=== PATIENT | male | born 1955 | race Caucasian/White ===

== ENCOUNTER 2019-08-02 23:05 | Inpatient (IN) | payer MEDICAID ==
[~2019-08-02] VITALS: Ht 180.3 cm; Wt 103.7 kg
[2019-08-02] MEDS ORDERED: ABILIFY10 MG PO (23:11)
[2019-08-02] MEDS ORDERED: ALDACTONE25 MG PO (23:12)
[2019-08-02] MEDS ORDERED: COREG6.25 MG (23:12)
[2019-08-02] MEDS ORDERED: PRECOSE25 MG PO (23:12)
[2019-08-02] MEDS ORDERED: BAYER CHEWABLE81 MG PO (23:12)
[2019-08-02] MEDS ORDERED: NEURONTIN 300300 MG PO (23:12)
[2019-08-02] MEDS ORDERED: BUMETANIDE0.5 MG PO (23:12)
[2019-08-02] MEDS ORDERED: PAXIL30 MG PO (23:13)
[2019-08-02] MEDS ORDERED: K-TAB10 MEQ PO (23:13)
--- NOTE | 2019-08-02 23:33 | NUR ---
PT PLACED WITHIN EYESITE OF NURSES STATION.
[2019-08-03] VITALS (25 sets, daily range): BP systolic 87–133; BP diastolic 63–105; Ht 180.3 cm; Wt 103.7 kg
--- NOTE | 2019-08-03 01:00 | NUR ---
SHIFT ASSESSMENT COMPLETE. VSS STABLE NO VISUAL CUES OF DISTRESS NOTED. WILL CONTINUE TO MONITOR.
--- NOTE | 2019-08-03 01:00 | NUR ---
VS STABLE. WILL CONTINUE TO MONITOR.
--- NOTE | 2019-08-03 03:00 | NUR ---
VS STABLE. WILL CONTINUE TO MONITOR.
[2019-08-03 04:23] LABS: BASOPHILS 0.1 % (0-2); EOSINOPHILS 0.1 % (0-7); HEMATOCRIT 38.7 % (42.0-54.0); HEMOGLOBIN 12.4 g/dL (13.5-17.5); IMMATURE GRANULOCYTES 0.3 % (0-5); LYMPHOCYTES 7.3 % (15-50); MCH 29.2 pg (26.0-34.0); MCV 91.3 fL (80.0-100.0); MEAN PLATELET VOLUME 9.6 fL (7.4-10.4); NEUTROPHILS 84.2 % (40-80); PLATELET COUNT 150 10x3/uL (130-400); RBC 4.24 10x6/uL (4.20-6.10); RDW 13.8 % (11.5-14.5); WBC 7.7 10x3/uL (4.8-10.8)
[2019-08-03 04:49] LABS: ANION GAP 10.6 mmol/L (8-16); CALCIUM 8.1 mg/dL (8.5-10.1); CARBON DIOXIDE 30.3 mmol/L (21.0-32.0); CREATININE - SERUM 1.4 mg/dL (0.6-1.3); MAGNESIUM - SERUM 1.8 mg/dL (1.8-2.4); POTASSIUM - SERUM 3.9 mmol/L (3.5-5.1)
--- NOTE | 2019-08-03 05:00 | NUR ---
VS STABLE. WILL CONTINUE TO MONITOR.
[2019-08-03 06:47] LABS: INR 1.21 (0.85-1.17); PROTIME 14.7 SECONDS (11.6-15.0)
[2019-08-03 07:01] LABS: ALBUMIN 2.5 g/dL (3.4-5.0); BILIRUBIN - TOTAL 0.79 mg/dL (0.2-1.3); PROTEIN - SERUM 6.7 g/dL (6.4-8.2)
--- NOTE | 2019-08-03 07:15 | NUR ---
REPORT RECEIVED. ASSESSMENT COMPLETE PER FLOWSHEET. VSS. VOTANYA AT BEDSIDE NEW ORDERS RECEIVED. WILL CONTIUE TO MONITOR
--- NOTE | 2019-08-03 08:06 | NUR ---
VS STABLE. WILL CONTINUE TO MONITOR.
--- NOTE | 2019-08-03 11:00 | NUR ---
REASSESSMENT COMPLETE PER FLOW SHEET. VSS. NO NEW CHANGES WILL CONTINUE TO MONITOR
--- NOTE | 2019-08-03 18:47 | MORECARE ---
CASE MANAGEMENT DISCHARGE SUMMARY PATIENT: BROOKE DAVALOS UNIT: [id number] ADM DATE: 08/02/19 AGE: 64 : 53 SEX: M ROOM/BED: D.2305 AUTHOR: FLORY MARIA PHYSICIAN: REFERRING PHYSICIAN: BRIANNA LAFLEUR MD DATE OF SERVICE: 08/03/19 Discharge Plan Patient Name: BROOKE DAVALOS [facility] [facility] 1955 Planned Disposition: Anticipated Discharge Date: Discharge Date: Expected LOS: Initial Reviewer: [email or web address] Initial Review Date: 08/03/2019 Generated: 08/03/19 7:47 pm Comments DCP- Discharge Planning Updated by [email or web address]: Joanna Del Valle on 08/03/19 5:[address] CM attempted to get discharge planning assessment completed but patient kept falling asleep while CM getting information CM will see patient later for patient initial discharge planning assessment. CM will continue to follow and assist as needed with discharge planning / needs Patient Name: BROOKE DAVALOS Page [phone] at 1847 All edits/amendments must be made on the electronic document DICTATION DATE: 08/03/191846 TILE SORTER: HIEN 08/03/191846 RPT#: [id number] DC DATE: STATUS: ADM IN [facility] [address] [place] [address] END OF REPORT
--- NOTE | 2019-08-03 19:00 | NUR ---
REPORT RECEIVED. PT RESTING IN BED ON RIGHT SIDE, AAOX4. GEORGE IN PLACE, RT FOREARM PIV, LT FOREARM PIV X2, SEE FLOWSHEET. ASSESSMENT COMPLETED, SEE FLOWSHEET. NO ACUTE DISTRESS NOTED AT THIS TIME, WILL CONTINUE TO MONITOR.
--- NOTE | 2019-08-03 21:00 | NUR ---
PT RESTING IN BED, COLOSTOMY FORMING SEMI-SOLID STOOL.
--- NOTE | 2019-08-03 23:00 | NUR ---
PT RESTING IN BED, NO ACUTE DISTRES NOTED. WILL CONTINUE TO MONITOR.
[2019-08-04] VITALS (24 sets, daily range): BP systolic 92–135; BP diastolic 57–103
--- NOTE | 2019-08-04 01:00 | NUR ---
PT LAYING ON RIGHT SIDE, CONFUSED AND DISORIENTED TO PLACE AND SITUATION. REORIENTED NEEDED.
--- NOTE | 2019-08-04 03:00 | NUR ---
EMPTIED PT'S COLOSTOMY BAG. NO ACUTE DISTRESS NOTED.
[2019-08-04 04:25] LABS: BASOPHILS 0.2 % (0-2); EOSINOPHILS 1.9 % (0-7); HEMATOCRIT 38.3 % (42.0-54.0); HEMOGLOBIN 11.9 g/dL (13.5-17.5); IMMATURE GRANULOCYTES 0.2 % (0-5); LYMPHOCYTES 13.7 % (15-50); MCH 28.7 pg (26.0-34.0); MCHC 31.1 g/dL (31.0-37.0); MCV 92.5 fL (80.0-100.0); MEAN PLATELET VOLUME 9.1 fL (7.4-10.4); MONOCYTES 8.7 % (2-11); NEUTROPHILS 75.3 % (40-80); PLATELET COUNT 131 10x3/uL (130-400); RBC 4.14 10x6/uL (4.20-6.10)
[2019-08-04 04:32] LABS: WBC 5.3 10x3/uL (4.8-10.8)
[2019-08-04 04:55] LABS: ALBUMIN 2.3 g/dL (3.4-5.0); ANION GAP 10.1 mmol/L (8-16); BILIRUBIN - TOTAL 0.56 mg/dL (0.2-1.3); CALCIUM 8.4 mg/dL (8.5-10.1); CREATININE - SERUM 1.2 mg/dL (0.6-1.3); MAGNESIUM - SERUM 1.8 mg/dL (1.8-2.4); PHOSPHOROUS 3.2 mg/dL (2.5-4.9); POTASSIUM - SERUM 4.1 mmol/L (3.5-5.1); PROTEIN - SERUM 6.4 g/dL (6.4-8.2); THYROID STIMULATING HORMONE 1.47 uIU/mL (0.36-3.74)
--- NOTE | 2019-08-04 05:00 | NUR ---
PT RESTING ON RIGHT SIDE, NO ACUTE DISTRESS NOTED. PT STILL DISORIENTED TO TIME AND SITUATION, SPEECH SLOW TO RESPOND AND QUIET.
--- NOTE | 2019-08-04 07:00 | NUR ---
REPORT RECEVIED FROM THE OFF GOING RN. SEE ASSESSMENT IN THE PTS FLOW SHEET. VSS AT THIS TIME. CALL LIGHT IN REACH. WILL CONT POC.
--- NOTE | 2019-08-04 08:00 | NUR ---
PT LEFT FOR CT.
--- NOTE | 2019-08-04 10:07 | NUR ---
HEART RATE BOUNCING FROM NRS TO A RATE OF 130'S. EKG OBTAINED. PT IN NSR THEN AFIB AND THEN JUNCTIONAL RYTYHM. BP STABLE. DR JACOBY DUNCAN.
--- NOTE | 2019-08-04 10:11 | NUR ---
DR DOZIER PAGED BACK. CONSULT CARDIO.
--- NOTE | 2019-08-04 10:46 | NUR ---
GUSTAVO RAMIREZ ASSISTED THE PT OOB AND INTO HIS BEDSIDE CHAIR.
--- NOTE | 2019-08-04 10:57 | NUR ---
DR ANDERS AT THE PTS BEDSIDE. OK FOR REGULAR DIET AND LIQUIDS.
--- NOTE | 2019-08-04 11:29 | NUR ---
REASSESSMENT COMPLETED. VSS. WILL CONT POC.
[2019-08-04 11:59] LABS: AMORPHOUS SEDIMENT <1+ /lpf (NONE SEEN); APPEARANCE CLOUDY (CLEAR); BACTERIA MODERATE /hpf (NEGATIVE); BILIRUBIN NEGATIVE (NEGATIVE); COLOR YELLOW (YELLOW); EPITHELIAL CELLS 0-5 /hpf (0-5); GLUCOSE 500 mg/dL (NEGATIVE); GRANULAR CAST OCC /lpf (NONE SEEN); KETONE MODERATE mg/dL (NEGATIVE); NITRITE NEGATIVE (NEGATIVE); PROTEIN 1+ mg/dL (NEGATIVE); RED CELLS - URINE 0-5 /hpf (0-5); UROBILINOGEN NORMAL (NORMAL); WHITE CELLS - URINE 25-50 /hpf (NEGATIVE)
[2019-08-04 12:00] LABS: MUCUS <1+ /lpf (NONE SEEN)
--- NOTE | 2019-08-04 12:36 | NUR ---
DR SANTOYO AT THE PTS BEDSIDE. SEE ORDERS.
--- NOTE | 2019-08-04 15:00 | NUR ---
REASSESSMENT COMPLETED. VSS. CALL LIGHT IN REACH. WILL CONT POC.
--- NOTE | 2019-08-04 19:00 | NUR ---
SHIFT ASSESSMENT COMPLETE. PT IS A&O X3, CONFUSED TO PLACE, REORIENTED. SPEECH IS CLEAR, STRONG AND EQUAL HAND SURVEILLANCE SYSTEM MONITOR AND FOOT PUMPS. RR EVEN AND UNLABORED, NC ON @ 2 L/MIN, CLEAR BREATH SOUNDS HEARD BILAT THROUGHOUT ALL LOBES. S1S2 AUDIBLE, HR 66 NSR. PT WILL BE IN NSR, THEN UNCONTROLLED A-FIB, BACK DOWN TO SINUS ALFONSO AND THEN BACK TO NSR. CARDIOLOGY IS AWARE. ABD DISTENDED AND SOFT, LLQ COLOSTOMY, STOMA IS PINK AND MOIST, COLOSTOMY BAG CDI. BS ACTIVE X4. L WRIST AND L FA PIV S/L. R FA PIV INFUSING LR @ 125 ML/HR. GEORGE CATH INTACT DRAINING CONCENTRATED URINE THAT HAS SEDIMENT IN IT. RADIAL AND PEDAL PULSES PALP. CALL LIGHT IN REACH, PT DENIES ANY NEEDS. WILL CONT TO MONITOR. SEE FLOWSHEET FOR FURTHER DETAILS.
--- NOTE | 2019-08-04 20:00 | NUR ---
CHG BATH AND COMPLETE LINEN CHANGE PROVIDED. PT TOLERATED WELL AND WAS ABLE TO TURN INDEPENDENTLY. UNDER ARMS, SCROTUM, AND UPPER THIGHS HAVE RED SKIN THAT IS MOIST. POWDER APPLIED TO AFFECTED AREAS. LOTION APPLIED TO BACK AND FEET, DRY FLAKY SKIN, NOTED. DENTURE CARE PROVIDED, TOP DENTURES ONLY, HE STATED THAT HE WOULD LIKE TO WEAR THEM. GEORGE CARE PROVIDED. NO FURTHER NEEDS AT THIS TIME. WILL CONT WITH POC.
--- NOTE | 2019-08-04 20:01 | MORECARE ---
CASE MANAGEMENT DISCHARGE SUMMARY PATIENT: BROOKE DAVALOS UNIT: [id number] ADM DATE: 08/02/19 AGE: 64 : 53 SEX: M ROOM/BED: D.2305 AUTHOR: FLORY MARIA PHYSICIAN: REFERRING PHYSICIAN: BRIANNA LAFLEUR MD DATE OF SERVICE: 08/04/19 Discharge Plan Patient Name: BROOKE DAVALOS [facility] [facility] 1955 Planned Disposition: Anticipated Discharge Date: Discharge Date: Expected LOS: Initial Reviewer: [email or web address] Initial Review Date: 08/03/2019 Generated: 08/04/19 9:01 pm Comments DCP- Discharge Planning Updated by SIMON: Joanna Del Valle on 08/04/19 6:[address] Patient having procedure / testing at bedside. CM will evaluate later.CM will continue to follow and assist as needed with discharge planning / needs DCP- Discharge Planning Updated by [id number]: Joanna Del Valle on 08/03/19 5:[address] CM attempted to get discharge planning assessment completed but patient kept falling asleep while CM getting information CM will see patient later for patient initial discharge planning assessment. CM will continue to follow and assist as needed with discharge planning / needs Last DP export: 08/03/19 5:47 Patient Name: BROOKE DAVALOS Page [phone] at 2000 All edits/amendments must be made on the electronic document DICTATION DATE: 08/04/192000 CAFETERIA SERVER: HIEN 08/04/192000 RPT#: [id number] DC DATE: STATUS: ADM IN [facility] [address] [place] [address] END OF REPORT
--- NOTE | 2019-08-04 21:00 | NUR ---
FSBS 166, 2 UN INSULIN ADMIN PER SLIDING SCALE. REFRESHMENTS BROUGHT TO BEDSIDE. HE DENIES ANY NEEDS AT THIS TIME. REPOSITIONED FOR COMFORT. CALL LIGHT IN REACH, BED IN LOWEST POSITION. WILL CONT WITH POC.
--- NOTE | 2019-08-04 22:00 | NUR ---
D/C L WRIST PIV AND L FA PIV, CATH TIPS INTACT, PRESSURE APPLIED TO INSERTION SITE. PT TOLERATED WELL.
--- NOTE | 2019-08-04 23:00 | NUR ---
REASSESSMENT COMPLETE. PT IS A&O X4 WITH NO COMPLAINTS OF PAIN OR DISCOMFORT. REPOSITIONED FOR COMFORT. RR EVEN AND UNLABORED, NC ON @ 2 L/MIN. LLQ STOMA PINK, COLOSTOMY BAG CDI. NO FURTHER FINDINGS AT THIS TIME. SEE FLOWSHEET FOR FURTHER DEATILS. WILL CONT TO MONITOR CLOSELY.
[2019-08-05] VITALS (24 sets, daily range): BP systolic 92–142; BP diastolic 8–98
--- NOTE | 2019-08-05 01:00 | NUR ---
PT RESTING WITH NO SIGNS OF ACUTE DISTRESS NOTED. VSS. REPOSITIONED FOR COMFORT. CALL LIGHT IN REACH, BED IN LOWEST POSITION. WILL CONT TO MONITOR.
--- NOTE | 2019-08-05 03:00 | NUR ---
REASSESSMENT COMPLETE. NO CHANGES IN PT CONDITION. VSS. SEE FLOWSHEET FOR FURTHER DETAILS. CALL LIGHT IN REACH, BED IN LOWEST POSITION. WILL CONT WITH POC.
[2019-08-05 04:16] LABS: BASOPHILS 0 % (0-2); EOSINOPHILS 4.4 % (0-7); HEMATOCRIT 34.6 % (42.0-54.0); HEMOGLOBIN 10.9 g/dL (13.5-17.5); IMMATURE GRANULOCYTES 0.2 % (0-5); LYMPHOCYTES 18.2 % (15-50); MCH 28.8 pg (26.0-34.0); MCHC 31.5 g/dL (31.0-37.0); MCV 91.5 fL (80.0-100.0); MEAN PLATELET VOLUME 9.2 fL (7.4-10.4); MONOCYTES 7.4 % (2-11); NEUTROPHILS 69.8 % (40-80); PLATELET COUNT 128 10x3/uL (130-400); RBC 3.78 10x6/uL (4.20-6.10); RDW 13.9 % (11.5-14.5); WBC 4.1 10x3/uL (4.8-10.8)
[2019-08-05 04:44] LABS: ALBUMIN 2.1 g/dL (3.4-5.0); ALKALINE PHOSPHATASE 50 U/L (46-116); ALT (SGPT) 17 U/L (10-68); BILIRUBIN - TOTAL 0.44 mg/dL (0.2-1.3); CALC OSMOLALITY 280 mosm/kg (275-300); CALCIUM 7.9 mg/dL (8.5-10.1); CARBON DIOXIDE 31.2 mmol/L (21.0-32.0); CHLORIDE - SERUM 104 mmol/L (98-107); CREATININE - SERUM 0.9 mg/dL (0.6-1.3); GLUCOSE 160 mg/dL (74-106); MAGNESIUM - SERUM 1.8 mg/dL (1.8-2.4); PHOSPHOROUS 2.7 mg/dL (2.5-4.9); POTASSIUM - SERUM 3.7 mmol/L (3.5-5.1); PROTEIN - SERUM 5.9 g/dL (6.4-8.2); SODIUM 139 mmol/L (136-145); eGFR NON AFRICAN AMERICAN 90 mL/min (90-120)
[2019-08-05 04:49] LABS: UREA NITROGEN 13 mg/dL (7-18)
--- NOTE | 2019-08-05 05:00 | NUR ---
PT RESTING PEACEFULLY WITH NO SIGNS OF ACUTE DISTRESS NOTED. VSS. CALL LIGHT IN REACH, WILL CONT TO MONITOR.
--- NOTE | 2019-08-05 07:20 | NUR ---
REPORT RECEIVED. ASSESSEMENT COMPLETE PER FLOW SHEET. VSS. NO NEW CHANGES PT RESTING COMFORTABLY DENIES NEEDS WILL CONTINUIE TO MONITOR
--- NOTE | 2019-08-05 08:09 | NUR ---
Nutrition follow-up: Diet advanced to consistent CHO 08/04 Pt with poor po intake at this time Wt: 217# Labs reviewed; glucose under fair to good control A1c: 10.1% Will provide food choices with selective menus and honor food preferences within diet restrictions. Will offer nutritional supplements. RDN following.
--- NOTE | 2019-08-05 09:20 | NUR ---
PT ATE 40% BREAKFAST. PT RESTING COMFORTABLY. DENIES NEEDS WILL CONTINUE TO MONITOR
--- NOTE | 2019-08-05 11:15 | NUR ---
DR DOZIER AT BEDSIDE NEW ORDERS RECIEVED TO TRANSFER. ORDERS PLACED. PT GIVEN LUNCH TRAY ATE 50%
--- NOTE | 2019-08-05 13:10 | NUR ---
DR DOZIER AT BEDSIDE GIVEN UPDATE.
--- NOTE | 2019-08-05 15:00 | NUR ---
NO NEW CHANGES PT RESTING COMFORTABLY DENIES NEEDS WILL CONTINUE TO MONITOR
--- NOTE | 2019-08-05 17:20 | NUR ---
PT REFUSED DINNER. STATED NEASEATED
--- NOTE | 2019-08-05 19:00 | NUR ---
SHIFT ASSESSMENT COMPLETE. PT IS A&O X4, PERRLA, 3 MM, BRISK REACTION TO LIGHT. RR EVEN AND UNLABORED, NC ON @ 2L/MIN, O2 SAT 100%, RR 16-18 BPM. TOP DENTURES IN, ORAL MUCOSA MOIST, PINK. S1S2 AUDIBLE, HR 66 NSR SHOWING ON MONITOR. R FA PIV INFUSING LR @ 125 ML/HR. ABD DISTENDED, SOFT, BS ACTIVE X4. LLQ COLOSTOMY NOTED, STOMA PINK AND MOIST. GEORGE CATH INTACT DRAINING CONCENTRATED URINE WITH SEDIMENT. RADIAL AND PEDAL PULSES PALP. VSS. CALL LIGHT IN REACH, BED IN LOWEST POSITION. NO FURTHER NEEDS AT THIS TIME. WILL CONT TO MONITOR CLOSELY.
--- NOTE | 2019-08-05 19:40 | NUR ---
PT STATES THAT HE IS NAUSEATED. PRN ZOFRAN ADMIN.
--- NOTE | 2019-08-05 20:18 | NUR ---
DELILAH CHAWLA APN. PT STATES THAT HE IS IN PAIN AND HE DOES NOT HAVE ANY PAIN MEDICATION ON EMAR.
--- NOTE | 2019-08-05 20:20 | NUR ---
SPOKE WITH ENRIKE CHAWLA APN R/T SIGRID, NEW ORDERS RECIEVED.
--- NOTE | 2019-08-05 20:54 | MORECARE ---
CASE MANAGEMENT DISCHARGE SUMMARY PATIENT: BROOKE DAVALOS UNIT: [id number] ADM DATE: 08/02/19 AGE: 64 : 53 SEX: M ROOM/BED: D.2305 AUTHOR: FLORY MARIA PHYSICIAN: REFERRING PHYSICIAN: BRIANNA LAFLEUR MD DATE OF SERVICE: 08/05/19 Discharge Plan Patient Name: BROOKE DAVALOS [facility] [facility] 1955 Planned Disposition: Anticipated Discharge Date: Discharge Date: Expected LOS: Initial Reviewer: [email or web address] Initial Review Date: 08/03/2019 Generated: 08/05/19 9:53 pm DCP- Discharge Planning Updated by SIMON: Joanna Del Valle on 08/04/19 6:[address] Patient having procedure / testing at bedside. CM will evaluate later.CM will continue to follow and assist as needed with discharge planning / needs DCP- Discharge Planning Updated by SIMON: Joanna Del Valle on 08/03/19 5:[address] CM attempted to get discharge planning assessment completed but patient kept falling asleep while CM getting information CM will see patient later for patient initial discharge planning assessment. CM will continue to follow and assist as needed with discharge planning / needs Last DP export: 08/04/19 7:01 Patient Name: BROOKE DAVALOS Page [phone] at 205 All edits/amendments must be made on the electronic document DICTATION DATE: 08/05/192052 MIND READER: HIEN 08/05/192052 RPT#: [id number] DC DATE: STATUS: ADM IN [facility] [address] [facility] [place] [address] END OF REPORT
--- NOTE | 2019-08-05 21:01 | MORECARE ---
CASE MANAGEMENT DISCHARGE SUMMARY PATIENT: BROOKE DAVALOS UNIT: [id number] ADM DATE: 08/02/19 AGE: 64 : 53 SEX: M ROOM/BED: D.2305 AUTHOR: CROW,DOC PHYSICIAN: REFERRING PHYSICIAN: BRIANNA LAFLEUR MD DATE OF SERVICE: 08/05/19 Discharge Plan Patient Name: BROOKE DAVALOS Facility: [facility]:[place] : 1955 Planned Disposition: Anticipated Discharge Date: Discharge Date: Expected LOS: Initial Reviewer: [email or web address] Initial Review Date: 08/03/2019 Generated: 08/05/19 10:01 pm Comments DCP- Discharge Planning Updated by [email or web address]: Joanna Del Valle on 08/05/19 7:[address] Patient Name: BROOKE DAVALOS Admission Status: ER Accout number: [id number] Admission Date: 08-02-2019 : 1955 Admission Diagnosis:SEPSIS, UNSPECIFIED ORGANISM Attending: BRIANNA LAFLEUR Current LOS: 3 Anticipated DC Date: Planned Disposition: Primary Insurance: MEDICAID [place] Discharge Planning Comments: CM met with patient at bedside after explaining CM role and obtaining verbal consent. Patient lives at home alone where he is independent with his care and plans to return there upon discharge. Patient feels this would be a safe discharge. CM discussed availability / needs of home health and medical equipment. Patient states he has Home 02 / portable 02 / nebulizer with [employer]. Patient denies any discharge needs at this time. Patient states he will have his friend drive him home upon discharge. CM will continue to follow and assist as needed with discharge planning / needs. Outboard Motor Assembler: Joanna Del Valle DCP- Discharge Planning Updated by [email or web address]: Joanna Del Valle on 08/04/19 6:[address] Patient having procedure / testing at bedside. CM will evaluate later.CM will continue to follow and assist as needed with discharge planning / needs DCP- Discharge Planning Updated by [email or web address]: Joanna Del Valle on 08/03/19 5:[address] CM attempted to get discharge planning assessment completed but patient kept falling asleep while CM getting information CM will see patient later for patient initial discharge planning assessment. CM will continue to follow and assist as needed with discharge planning / needs DCPIA - Discharge Planning Initial Assessment Updated by [email or web address]: Joanna Del Valle on 08/05/19 8:56 pm * Is the patient Alert and Oriented? Yes * How many steps to enter\exit or inside your home? * PCP [facility] * Pharmacy [facility] * Preadmission Environment Home Alone * ADLs Independent * Other Equipment HOME / PORTABLE 02, POWERCHAIR, LIFT CHAIR, HOSP BED, NEBULIZER * List name and contact numbers for known caregivers / representatives who currently or will assist patient after discharge: SHIRAZ DAVALOS [facility]- [phone] * Verbal permission to speak to the caregivers and representatives has been obtained from the patient. Yes * Community resources currently utilized Home Health * Please name any agencies selected above. [facility] * Additional services required to return to the preadmission environment? No * Can the patient safely return to the preadmission environment? Yes * Has this patient been hospitalized within the prior 30 days at any hospital? No Last DP export: 08/05/19 7:54 Patient Name: BROOKE DAVALOS Page [phone] at 2101 All edits/amendments must be made on the electronic document DICTATION DATE: 08/05/192100 COUNSELING CASE MANAGER: HIEN 08/05/192100 RPT#: [id number] DC DATE: STATUS: ADM IN [facility] [address] [place] [address] END OF REPORT
--- NOTE | 2019-08-05 22:30 | NUR ---
PT STATES THAT HE IS IN IMMENSE PAIN. SPOKE WITH ENRIKE CHAWLA APN, ADMIN REMAINING 2 MG MORPHINE FOR A TOTAL OF 4 MG FROM INITIAL MORPHINE ADMINISTRATION. ASSISTED PT TO CHAIR, PARTIAL ASSIST, GAIT STEADY. COMPLETE LINEN CHANGE PROVIDED. PT STATES THAT HE IS FEELING BETTER NOW THAT HE IS SITTING UP. WILL CONT TO MONITOR CLOSELY. CALL LIGHT IN REACH, PT IS IN VIEW OF NURSE'S STATION.
--- NOTE | 2019-08-05 23:00 | NUR ---
DELILAH CHAWLA D/T INCREASED RUQ PAIN.
--- NOTE | 2019-08-05 23:15 | NUR ---
NEW ORDERS RECIEVED. CALLING HOUSE SUPPERVISOR FOR MEDS. WILL CONT WITH POC.
[2019-08-06] VITALS (9 sets, daily range): BP systolic 100–143; BP diastolic 47–91
--- NOTE | 2019-08-06 03:00 | NUR ---
LAB AT BEDSIDE. PT IN AND OUT OF AFIB ON HEART MONITOR, SHOWS NO SIGNS OF DISTRESS. OTHER VSS. CALL LIGHT IN REACH, PT INSTRUCTED TO STAY IN BED AND CALL FOR HELP BEFORE GETTING UP. BED IN LOW POSITION, WILL MONITOR.
[2019-08-06 04:12] LABS: BASOPHILS 0 % (0-2); EOSINOPHILS 0.2 % (0-7); HEMATOCRIT 38.3 % (42.0-54.0); HEMOGLOBIN 12.3 g/dL (13.5-17.5); IMMATURE GRANULOCYTES 0.2 % (0-5); LYMPHOCYTES 2.8 % (15-50); MCHC 32.1 g/dL (31.0-37.0); MCV 90.3 fL (80.0-100.0); MEAN PLATELET VOLUME 9.4 fL (7.4-10.4); MONOCYTES 3.7 % (2-11); NEUTROPHILS 93.1 % (40-80); PLATELET COUNT 149 10x3/uL (130-400); RBC 4.24 10x6/uL (4.20-6.10); RDW 13.7 % (11.5-14.5)
[2019-08-06 04:34] LABS: WBC 12.1 10x3/uL (4.8-10.8)
[2019-08-06 04:41] LABS: ALBUMIN 2.4 g/dL (3.4-5.0); ALKALINE PHOSPHATASE 60 U/L (46-116); ALT (SGPT) 20 U/L (10-68); BILIRUBIN - TOTAL 0.64 mg/dL (0.2-1.3); CALC OSMOLALITY 282 mosm/kg (275-300); CALCIUM 8.2 mg/dL (8.5-10.1); CHLORIDE - SERUM 103 mmol/L (98-107); GLUCOSE 186 mg/dL (74-106); PROTEIN - SERUM 6.4 g/dL (6.4-8.2); SODIUM 140 mmol/L (136-145); UREA NITROGEN 11 mg/dL (7-18); eGFR NON AFRICAN AMERICAN 79 mL/min (90-120)
[2019-08-06 04:43] LABS: POTASSIUM - SERUM 3.1 mmol/L (3.5-5.1)
--- NOTE | 2019-08-06 06:00 | NUR ---
PT RESTING QUIETLY. MEDS GIVEN PER MAR AND TOLERATED BY PT.
--- NOTE | 2019-08-06 07:00 | NUR ---
REPORT RECEIVED. ASSESSMENT COMPLETE PER FLOW SHEET. VSS. NO NEW CHANGES PT RSTING COMFORTABLY WILL CONTINUE TO MONITOR
--- NOTE | 2019-08-06 08:38 | NUR ---
PT GIVEN BREAKFAST TRAY ATE 20%
--- NOTE | 2019-08-06 13:20 | NUR ---
REPORT CALLED TO M/S. CANNOT TRANSFER PT R/T PT STILL IN ROOM 7989.
--- NOTE | 2019-08-06 13:36 | NUR ---
REPORT CALLED. VSS. PT TRANSFERED VIA WHEELCHAIR
--- NOTE | 2019-08-06 14:40 | NUR ---
PATIENT ADMITTED TO ROOM 2215.
--- NOTE | 2019-08-06 14:51 | NUR ---
IV TO RFA PULLED BY PATIENT. RESITED TO LEFT WRIST.
--- NOTE | 2019-08-06 16:15 | NUR ---
IV LEAKING TO LEFT WRIST. REMOVED WITH TIP INTACT. ATTEMPTED TO RESITE WITHOUT SUCCESS. YEVGENIY VASCULAR ACCESS CALLED AND STATES WILL COME TO ROOM.
--- NOTE | 2019-08-06 16:49 | NUR ---
OSTOMY BAG LEAKING. BAG CHANGED. PATIENT UP IN CHAIR. CHAIR ALARM IN PLACE.
--- NOTE | 2019-08-06 17:15 | NUR ---
IV SITED TO [facility] BY VASCULAR ACCESS NURSE YEVGENIY.
--- NOTE | 2019-08-06 18:49 | NUR ---
RESTING IN BED. DENIES NEEDS. BED LOW. FALL PRECAUTIONS IN PLACE. CALL HOANG AND PERSONAL ITEMS IN REACH.
--- NOTE | 2019-08-06 19:40 | NUR ---
TRYING TO GET OOB, SITTING ON SIDE OF BED. JAXON ALARM ACTIVATED. PT PULLED IV OUT, BLOOD ALL OVER THE SHEETS AND PTS GOWN. LINENS CHANGED. PT VERY CONFUSED. ORIENTED TO SELF AND TIME ONLY. COLOSTOMY NOTED WITH BROWN LIQ IN BAG. GEORGE CATH PATENT AND DRAINING DARK YELLOW URINE. ABD HERNIA NOTED UNDER COLOSTOMY. DENIES PAIN. O2 @ 2L/NC. SLOW TO RESPOND TO QUESTIONS. SR ELEVATED X3. CL IN REACH.
--- NOTE | 2019-08-06 23:00 | NUR ---
COLOSTOMY LEAKING. NEW BAG APPLIED.
[2019-08-07] VITALS (25 sets, daily range): BP systolic 75–134; BP diastolic 53–90
--- NOTE | 2019-08-07 00:15 | NUR ---
IV FINALLY RESTARTED WITH 22G IN RT FOREARM AFTER MULTIPLE ATTEMPTS. PT KEVIN WELL.
--- NOTE | 2019-08-07 05:01 | NUR ---
HAS BEEN AWAKE ALL NIGHT. CONFUSED. SKIN IS DIAPHORETIC. FSBS CHECKED AND WAS 164.
[2019-08-07 07:09] LABS: HEMATOCRIT 37.2 % (42.0-54.0); HEMOGLOBIN 11.9 g/dL (13.5-17.5); LYMPHOCYTES 2.4 % (15-50); MCH 28.7 pg (26.0-34.0); MCV 89.6 fL (80.0-100.0); MEAN PLATELET VOLUME 9.5 fL (7.4-10.4); NEUTROPHILS 94.3 % (40-80); RBC 4.15 10x6/uL (4.20-6.10); RDW 14.2 % (11.5-14.5)
[2019-08-07 07:13] LABS: PLATELET COUNT 118 10x3/uL (130-400); WBC 17.3 10x3/uL (4.8-10.8)
--- NOTE | 2019-08-07 07:20 | NUR ---
ALERT AND ORIENTED TO SELF AND TIME. LUNGS WITH BILATERAL INSPIRATORY AND EXPIRATORY WHEEZES. WHEEZES AUDIBLE WITHOUT STETHOSCOPE. RECEIVING BREATHING TREATMENT AT THIS TIME. HEART SOUNDS S1 AND S2 HEARD IN ALL ONTIVEROS. BOWEL SOUNDS ACTIVE X 4. OSTOMY PATENT TO LEFT UPPER QUADRANT. 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 IV TO RFA PATENT WITHOUT REDNESS. HERNIA NOTED TO LUQ. SKIN DENIES PAIN. DENIES NEEDS. BED LOW. FALL PRECAUTIONS IN PLACE. CALL HOANG AND PERSONAL ITEMS IN REACH. WILL CONTINUE TO MONITOR.
[2019-08-07 07:41] LABS: ALBUMIN 2.2 g/dL (3.4-5.0); ALKALINE PHOSPHATASE 65 U/L (46-116); ALT (SGPT) 21 U/L (10-68); AMYLASE - SERUM 12 U/L (25-115); BILIRUBIN - TOTAL 0.98 mg/dL (0.2-1.3); CALC OSMOLALITY 280 mosm/kg (275-300); CALCIUM 8.8 mg/dL (8.5-10.1); CARBON DIOXIDE 29.9 mmol/L (21.0-32.0); CHLORIDE - SERUM 101 mmol/L (98-107); GLUCOSE 176 mg/dL (74-106); PROTEIN - SERUM 6.4 g/dL (6.4-8.2); SODIUM 139 mmol/L (136-145); UREA NITROGEN 10 mg/dL (7-18); eGFR NON AFRICAN AMERICAN 79 mL/min (90-120)
[2019-08-07 07:45] LABS: LIPASE 27 U/L (73-393); POTASSIUM - SERUM 3.6 mmol/L (3.5-5.1)
--- NOTE | 2019-08-07 07:51 | NUR ---
CALLED JAS AT [facility] TO GET TELEMETRY FOR PATIENT. STATES NONE AVAILABLE.
--- NOTE | 2019-08-07 09:13 | NUR ---
PATIENT SWEATING SIGNIFICANTLY BUT STATES NOT HOT. TELEMETRY PLACED ON PATIENT. PATIENT ASSISTED TO CHAIR. HR 120 UNCONTROLLED AFIB. BP 164/65 IN CHAIR. BLOOD SUGAR 240. CALLED [facility] WHO STATES WILL ORDER LACTIC ACID. SERVICE DESK DIRECTOR STATES CALL DR SANTOYO FOR UNCONTROLLED AFIB. DR SANTOYO PAGEChintan.
--- NOTE | 2019-08-07 09:30 | NUR ---
SPOKE WITH NURSE AT [facility] WHO STATES DR SANTOYO ON VACATION. STATES DR BEE SENIOR CARE PROVIDER. DR BEE IN WITH PATIENT. STATES BRIAN AT [facility] NOW SEEING HIS PATIENTS. WILL CALL BRIAN.
--- NOTE | 2019-08-07 09:33 | NUR ---
STAT LACTIC ACID, BLOOD CULTURES, AND CXR ORDERED BY [facility] JESSICA.
--- NOTE | 2019-08-07 09:33 | NUR ---
MEDICAL CODER PAGED. NO RESPONSE. MESSAGE LEFT TO CALL BACK.
--- NOTE | 2019-08-07 10:14 | NUR ---
SPOKE WITH BRIAN WHO STATES GIVE ONE TIME DOSE IV LOPRESSOR.
--- NOTE | 2019-08-07 10:25 | NUR ---
ONE TIME DOSE IV LOPRESSOR GIVEN. JAS AT [facility]. NOTIFIED.
--- NOTE | 2019-08-07 10:35 | NUR ---
SPOKE WITH LAB ABOUT STAT LACTIC ACID AND STAT BLOOD CULTURES. STATES SOMEONE ONE THE WAY TO COLLECT LABS.
--- NOTE | 2019-08-07 10:42 | NUR ---
HR STILL 122 UNCONTROLLED AFIB. WILL CALL [facility] TORRES.
--- NOTE | 2019-08-07 10:43 | NUR ---
ATTEMPTED TO CALL [facility] WITH NO ANSWER. LEFT VOICEMAIL.
--- NOTE | 2019-08-07 12:20 | NUR ---
RESTING IN BED. DENIES NEEDS. WILL CONTINUE TO MONITOR.
--- NOTE | 2019-08-07 13:38 | NUR ---
SPOKE WITH RT PHU FOR PRN BREATHING TX. STATES JUST HAD BREATHING TX. NOTIFIED THAT RN WOULD TEACH PATIENT INCENTIVE SPIROMETER AND ASKED TO BRING FLUTTER VALVE PER JASKARAN HARP MAKER. RT PHU STATES DO NOT USE INCENTIVE SPIROMETER YET D/T SOB. STATES WILL COME SEE PATIENT.
--- NOTE | 2019-08-07 13:43 | NUR ---
FLUIDS DECREASED TO 75/HR PER ORDER.
--- NOTE | 2019-08-07 14:03 | NUR ---
Nutrition follow-up: Diet: consistent CHO PO Intake poor at this time Visited with pt during lunch. Pt pulled up in bed with RN. Pt refuses to tell me food likes/dislikes. Pt ate the lemon garnish. Remains very SOB Provided pt with nutritional supplement. Will honor food preferences. RDN following.
--- NOTE | 2019-08-07 14:20 | NUR ---
SPOKE WITH DR DOZIER WHO STATES MOVING PATIENT TO ICU. PATIENT INFORMED AND VERBALIZED UNDERSTANDING. BELONGINGS GATHERED. STEAM HOIST OPERATOR FREDY NOTIFIED TO GET ROOM IN ICU. RESPIRATORY CALLED FOR DR DOZIER PER REQUEST.
--- NOTE | 2019-08-07 14:38 | NUR ---
RT NOTIFIED TO GIVE PT BREATHING TX.
--- NOTE | 2019-08-07 14:40 | NUR ---
ATTEMPTED TO CALL EMERGENCY CONTACT ON FILE. NO ANSWER AND NO VOICEMAIL.
--- NOTE | 2019-08-07 15:00 | NUR ---
PATIENT TRANSFERRED TO ICU. REPORT GIVEN TO STORAGE ENGINEER. DENIES FURTHER QUESTIONS.
--- NOTE | 2019-08-07 15:43 | NUR ---
Received pt by bed. bipap placed on pt per respiratory. cm ucaf hr 150. cardizem started per dr phillips. dr dorado called and informed pt here in unit and on cardizem.
--- NOTE | 2019-08-07 17:00 | NUR ---
notified flaco of pt in icu.
--- NOTE | 2019-08-07 18:32 | NUR ---
ucaf hr 100. diurese 800cc just 300 cc after lasix.
--- NOTE | 2019-08-07 19:35 | NUR ---
RECEIVED PT CARE, SHIFT ASSESSMENT COMPLETED SEE FLOWSHEET. BLEEDING FROM RIGHT PIV NOTED - IV DC WITH CATHETER INTACT. FULL LINEN AND GOWN CHANGE COMPLETED. HIBICLEANSE BATH AND GEORGE CARE DONE AT THIS TIME. PATIENT REPOSITIONED FOR SKIN INTEGRITY. VSS CPOC
--- NOTE | 2019-08-07 20:45 | NUR ---
RT AT BEDSIDE, BIPAP REDUCED TO 50%
--- NOTE | 2019-08-07 21:10 | NUR ---
BLOOD GLUCOSE CHECKED AND INSULIN ADMINISTERED SEE MAR - PATIENT REMOVED FROM BIPAP AND PLACED ON 6L NC - PO MEDS ADMINISTERED PATIENT TOLERATED WELL. VITAL SIGNS REMAINED STABLE. PATIENT PLACED BACK ON BIPAP @ 50% CPOC
--- NOTE | 2019-08-07 23:05 | NUR ---
REASSESSMENT COMPLETED SEE FLOWSHEET
[2019-08-08] VITALS (24 sets, daily range): BP systolic 84–157; BP diastolic 43–115
--- NOTE | 2019-08-08 03:15 | NUR ---
REASSESSMENT COMPLETED SEE FLOWSHEET
[2019-08-08 05:39] LABS: HEMATOCRIT 34.9 % (42.0-54.0); HEMOGLOBIN 11.1 g/dL (13.5-17.5); MCH 29.2 pg (26.0-34.0); MCHC 31.8 g/dL (31.0-37.0); MEAN PLATELET VOLUME 10.4 fL (7.4-10.4); RDW 14.5 % (11.5-14.5)
[2019-08-08 05:41] LABS: MCV 91.8 fL (80.0-100.0); PLATELET COUNT 144 10x3/uL (130-400); WBC 10.4 10x3/uL (4.8-10.8)
[2019-08-08 06:30] LABS: ALKALINE PHOSPHATASE 94 U/L (46-116); ALT (SGPT) 26 U/L (10-68); BILIRUBIN - TOTAL 0.45 mg/dL (0.2-1.3); CALC OSMOLALITY 289 mosm/kg (275-300); CALCIUM 8.5 mg/dL (8.5-10.1); CARBON DIOXIDE 33.9 mmol/L (21.0-32.0); CHLORIDE - SERUM 103 mmol/L (98-107); GLUCOSE 260 mg/dL (74-106); MAGNESIUM - SERUM 2.1 mg/dL (1.8-2.4); PHOSPHOROUS 1.8 mg/dL (2.5-4.9); POTASSIUM - SERUM 3.8 mmol/L (3.5-5.1); PRO BNP 4598 pg/mL (0-125); PROTEIN - SERUM 5.5 g/dL (6.4-8.2); SODIUM 140 mmol/L (136-145); TROPONIN-I < 0.017 ng/mL (0.000-0.060); UREA NITROGEN 19 mg/dL (7-18); eGFR NON AFRICAN AMERICAN 79 mL/min (90-120)
--- NOTE | 2019-08-08 07:00 | NUR ---
REPORT RECEVIED FROM THE OFF GOING RN. SEE ASSESSMENT IN THE PTS FLOW SHEET. NSR WITH FREQUENT PAC'S NOTED. ON BIPAP AT 40%. ROUND SOFT ABD WITH A L COLOSTOMY BAG NOTED. FC WITH CONCETRATED URINE. CALL LIGHT IN REACH. WILL CONT POC.
[2019-08-08 07:26] LABS: LYMPHOCYTES 6 % (15-50); MONOCYTES 1 % (2-11); NEUTROPHILS 92 % (40-80); PLATELET ESTIMATE NORMAL
--- NOTE | 2019-08-08 08:33 | NUR ---
DR BEE AT THE PTS BEDSIDE.
--- NOTE | 2019-08-08 09:40 | NUR ---
DR CARTY PAGED R/T NPO STATUS. UPDATED THAT HE WAS ON BIPAP. REMOVE BIPAP AND SEE IF HE IS ALERT ENOUGH. PT REMOVED FROM BIPAP. OK TO GIVE MEDS. MEDS GIVEN WITH NO S/SX OF ASPRIATION. LEAVE PT OFF BIPAP FOR [address] CARTY.
--- NOTE | 2019-08-08 11:14 | NUR ---
DR GOLDMAN AT THE PTS BEDSIDE. OK FOR FULL LIQUIDS IF OK WITH THE OTHER DOCTORS.
--- NOTE | 2019-08-08 11:30 | NUR ---
PT PLACED BACK ON BIPAP. WILL CONT POC.
--- NOTE | 2019-08-08 14:05 | NUR ---
SPOKE WITH DR CHINN. STEVEN FOR ON BIPAP FOR 4 HOURS AND OFF FOR 4 HOURS.
--- NOTE | 2019-08-08 15:49 | NUR ---
CLARIFIED IV GTT ORDER WITH DR CARTY. DC LR. KEEP NA AT 30ML/H
--- NOTE | 2019-08-08 17:06 | NUR ---
BIPAP REMOVED AND PLACED ON 4L VIA NC. PT ATE 100% OF FULL LIQUID DIET WITH LITTLE TO NO ASSISTANCE. VSS. WILL CONT POC.
--- NOTE | 2019-08-08 19:10 | NUR ---
SHIFT ASSESSMENT COMPLETED SEE FLOWSHEET
--- NOTE | 2019-08-08 23:15 | NUR ---
REASSESSMENT COMPLETED SEE KET
[2019-08-09] VITALS (14 sets, daily range): BP systolic 80–126; BP diastolic 47–86
--- NOTE | 2019-08-09 00:24 | NUR ---
REASSESSMENT COMPLETED SEE FLOWSHEET
--- NOTE | 2019-08-09 01:15 | NUR ---
PT RESTING COMFORTABLY NO ACUTE CHANGES VSS CPOC
--- NOTE | 2019-08-09 01:50 | NUR ---
DROP IN SYSTOLIC BP NOTED, WILL CONTINUE TO MONITOR CLOSELY
--- NOTE | 2019-08-09 02:56 | NUR ---
PAGED CARDIOLOGY FOR PATIENT STATUS UPDATE, STOP BUMEX DRIP AT THIS TIME
--- NOTE | 2019-08-09 06:10 | NUR ---
CALLED LAB REGARDING AM BLOOD DRAW FOR THIS PATIENT
--- NOTE | 2019-08-09 06:22 | NUR ---
SPOKE WITH DR CARTY REGARDING CRITICAL LAB VALUE ON ABG - DR CARTY REQUESTED TO CALL BACK ON THE SERUM. SERUM UNAVAILABLE AT THIS TIME, STILL AWAITING LAB FOR AM BLOOD DRAW.
--- NOTE | 2019-08-09 07:00 | NUR ---
BEDSIDE REPORT RECEIVED. SHIFT ASSESSMENT COMPLETED PER FLOWSHEET, SEE FLOWSHEET FOR INFORMATION. PT RESTING IN BED WITH EYES CLOSED. NO ACUTE NEEDS OR DISTRESS NOTED AT THIS TIME. WILL CONT TO MONITOR.
[2019-08-09 07:30] LABS: BASOPHILS 0 % (0-2); EOSINOPHILS 0 % (0-7); HEMATOCRIT 34.9 % (42.0-54.0); HEMOGLOBIN 11.1 g/dL (13.5-17.5); MCH 28.8 pg (26.0-34.0); MCHC 31.8 g/dL (31.0-37.0); MCV 90.6 fL (80.0-100.0); MEAN PLATELET VOLUME 10.8 fL (7.4-10.4); MONOCYTES 2.8 % (2-11); NEUTROPHILS 91.2 % (40-80); RBC 3.85 10x6/uL (4.20-6.10); RDW 14.7 % (11.5-14.5); WBC 9.6 10x3/uL (4.8-10.8)
[2019-08-09 07:39] LABS: PLATELET COUNT 174 10x3/uL (130-400)
[2019-08-09 07:42] LABS: ALBUMIN 1.8 g/dL (3.4-5.0); ANION GAP 5.2 mmol/L (8-16); BILIRUBIN - TOTAL 0.48 mg/dL (0.2-1.3); CALCIUM 8.1 mg/dL (8.5-10.1); CARBON DIOXIDE 38.8 mmol/L (21.0-32.0); CREATININE - SERUM 1.1 mg/dL (0.6-1.3); PROTEIN - SERUM 6.2 g/dL (6.4-8.2)
--- NOTE | 2019-08-09 09:00 | NUR ---
PT REFUSED BREAKFAST TRAY. NO NEEDS OR DISTRESS NOTED AT THIS TIME. VSS. WILL CONT TO MONITOR.
--- NOTE | 2019-08-09 11:00 | NUR ---
REASSESSMENT COMPLETED PER FLOWSHEET, SEE FLOWSHEET FOR INFORMATION. PT DENIES ANY DISTRESS OR NEEDS AT THIS TIME. PT SWITCHED OVER TO NC FROM BIPAP. WILL CONT TO MONITOR. VSS.
--- NOTE | 2019-08-09 13:00 | NUR ---
CLEANED PT'S FACE AND TURNED PT PER COMFORT. PT DENIES ANY NEED OR DISTRESS AT THIS TIME. VSS. WILL CONT TO MONITOR.
--- NOTE | 2019-08-09 15:00 | NUR ---
SPOKE WITH , NEW ORDERS RECEIVED TO TRANSFER PT. WILL CONT TO MONITOR.
--- NOTE | 2019-08-09 16:28 | NUR ---
REPORT CALLED TO MED SURG PT GOING TO ROOM 2234. WILL CONT TO MONITOR.
--- NOTE | 2019-08-09 20:30 | NUR ---
PLACED TELEMETRY ON PT. ASSESSMENT COMPLETE PER FLOW-SHEET. BURPED COLOSTOMY. NO NEEDS. DENIES PAIN. WILL CONTINUE TO MONITOR.
[2019-08-10 01:05] VITALS: BP 120/78
[2019-08-10 05:06] VITALS: BP 133/82
[2019-08-10 07:08] LABS: ALBUMIN 1.8 g/dL (3.4-5.0); ALKALINE PHOSPHATASE 80 U/L (46-116); ALT (SGPT) 21 U/L (10-68); BILIRUBIN - TOTAL 0.31 mg/dL (0.2-1.3); CALC OSMOLALITY 289 mosm/kg (275-300); CALCIUM 7.7 mg/dL (8.5-10.1); CARBON DIOXIDE 37.2 mmol/L (21.0-32.0); CHLORIDE - SERUM 99 mmol/L (98-107); GLUCOSE 287 mg/dL (74-106); POTASSIUM - SERUM 3.5 mmol/L (3.5-5.1); SODIUM 137 mmol/L (136-145); UREA NITROGEN 29 mg/dL (7-18); eGFR NON AFRICAN AMERICAN 79 mL/min (90-120)
[2019-08-10 07:15] LABS: BASOPHILS 0.1 % (0-2); EOSINOPHILS 0.1 % (0-7); HEMATOCRIT 35.2 % (42.0-54.0); HEMOGLOBIN 11.3 g/dL (13.5-17.5); IMMATURE GRANULOCYTES 1.2 % (0-5); LYMPHOCYTES 5.7 % (15-50); MCH 28.8 pg (26.0-34.0); MCHC 32.1 g/dL (31.0-37.0); MCV 89.8 fL (80.0-100.0); MEAN PLATELET VOLUME 10.3 fL (7.4-10.4); MONOCYTES 2.8 % (2-11); NEUTROPHILS 90.1 % (40-80); PLATELET COUNT 196 10x3/uL (130-400); RBC 3.92 10x6/uL (4.20-6.10); RDW 14.6 % (11.5-14.5); WBC 7.2 10x3/uL (4.8-10.8)
--- NOTE | 2019-08-10 07:55 | NUR ---
PT RESTING IN BED. RESP EVEN AND UNLABORED. O2 @ 4L NC IN PLACE. DENIES PAIN AT THIS TIME. IV TO RIGHT FOREARM WITH NS @ 30ML/HR INFUSING VIA PUMP. SITE WITHOUT REDNESS OR EDEMA. COLOSTOMY INTACT TO LEFT LOWER QUAD, WITH SCANT AMOUNT OF SOFT STOOL. COLOSTOMY BURPED AT THIS TIME. F/C PATENT TO GRAVITY. PT DENIES FURTHER NEEDS AT THIS TIME. CL WITHIN REACH. ENCOURAGED TO CALL WITH NEEDS. CONTINUE POC
[2019-08-10 08:22] VITALS: BP 139/88
[2019-08-10 12:52] VITALS: BP 104/71
--- NOTE | 2019-08-10 14:02 | NUR ---
Nutrition follow-up: Pt just out of ICU after breathing issues Full liquid diet at this time PO intake has been poor Pt reports he is feeling better but is still not eating much Labs reviewed Wt: 228# Pt refusing gallbladder surgery Recommend nutrition support if pt continues to have poor po intake. RDN following.
--- NOTE | 2019-08-10 15:29 | NUR ---
OT NOTE: PT COMPLETED BEDMOB SUPINE TO SIT WITH MIN/MOD A. PT COMPLETED SIT TO STAND WITH MIN/MOD A. PT COMPLETED EOB SITTING WITH SBA/CGA. PT COMPLETED FACE WASH WITH SET UP. PT COMPLETED UE AROM AXS. CASIMIRO HOPPER COTA
[2019-08-10 16:34] VITALS: BP 114/58
--- NOTE | 2019-08-10 17:02 | CN ---
PATIENT NAME:BROOKE AGUSTIN MEDICAL RECORD: [id number] : 51 LOCATION:D.MS [facility]2234 ADMIT DATE: 08/02/19 ACCOUNT: [id number] CONSULTING PHYSICIAN: ASHLEE SANTOYO MD REFERRING PHYSICIAN: BRIANNA LAFLEUR MD DATE OF CONSULTATION: 08/04/2019 DIAGNOSES: 1. Sepsis. 2. Paroxysmal atrial fibrillation. 3. Sick sinus syndrome. HISTORY OF PRESENT ILLNESS: Mr. Agustin is admitted with noncardiac reasons. He has no cardiac issues. No chest pain, no chest discomfort, no shortness of breath. He has been going in and out of atrial fibrillation; however, he has a history of atrial fibrillation as an outpatient. He is on metoprolol 50 mg a day for this. He as well has been having some bradycardia. He is currently bradycardic sinus in the 50s. His metoprolol has been on hold. PHYSICAL EXAMINATION: CONSTITUTIONAL/GENERAL APPEARANCE: Well nourished, well developed, appears stated age. EYES: Lids and conjunctivae noninjected. No discharge. No pallor. ENT: Lips within normal limit. No cyanosis. No pallor. NECK: Carotid arteries, bilateral normal upstroke. No bruits. No thrills. No jugular venous pressure or distention. CERVICAL LYMPH NODES: Nontender. Nonenlarged. THYROID: Not enlarged. No nodules. CARDIOVASCULAR: Precordial exam, nondisplaced. No heaves or pericardial thrills. Rate and rhythm, regular. Heart sounds, normal S1, normal S2. No S3, no gallop, no rub. Systolic murmur, not heard. Diastolic murmur, not heard. RESPIRATORY: Respiratory effort, unlabored. Normal curvature. No thoracic deformity. No chest wall tenderness. Percussion, resonant. Auscultation, clear. No wheezes, no rales, no rhonchi. ABDOMEN: Soft, nondistended, nontender. No abdominal pain, no vomiting and normal appetite. MUSCULOSKELETAL: No joint tenderness, normal gait, normal tone. SKIN: Warm and dry. OVERALL IMPRESSION: Sick sinus syndrome and tachybrady syndrome. At this time, we will try Cordarone 200 mg a day to see if this prevents atrial fibrillation, but does not cause symptomatic bradycardia. We will continue to hold the metoprolol as he is bradycardic. We will get an echocardiogram. Otherwise, no other cardiac workup or treatment is necessary. TRANSINT:[id number] Voice Confirmation ID: [id number] DOCUMENT ID: [id number] CONSULT REPORT [id number] BROOKE AGUSTIN JEFFREY MD at 1702 CC: [id number] DICTATION DATE: 08/04/19 124 PSYCHIATRIC RN: 08/04/19 1249 [place] [address]
--- NOTE | 2019-08-10 17:02 | EC ---
PATIENT:BROOKE DAVALOS DATE OF SERVICE: 08/02/19 SEX: M MEDICAL RECORD: [id number] DATE OF : [birth year] LOCATION:D.MS [place] AGE OF PATIENT: 64 ADMISSION DATE: 08/02/19 REFERRING PHYSICIAN: INTERPRETING PHYSICIAN: ASHLEE SMITH MD ECHOCARDIOGRAM REPORT ECHO CHARGES 4 ECHO COMPLETE Date: 08/04/19 CLINICAL DIAGNOSIS: AFIB ECHOCARDIOGRAPHIC MEASUREMENTS (adult normal given) AC root (d.<3.7cm) 4.3 cm LV Septum d (<1.2 cm> 1.4 cm Valve Excursion 1.5 cm LV Septum (systole) 1.5 cm Left Atria (s.<4.0cm> 3.0 cm LVPW d(<1.2cm) 1.1 cm RV (d.<2.3cm) 3.6 cm LVPW (sytole) 1.4 cm LV diastole(<5.6CM) 5.8 cm MV E-F(>70mm/sec) cm LV systole 4.5 cm LVOT Diameter 2.3 cm MV exc.(>10mm) cm Est.ejection fraction (50-75%) % DOPPLER: LVIT cm/sec A 69 cm/sec E 37 cm/sec LA cm/sec RVSP 14.1 mmHg LVOT 63 cm/sec AOP1/2T m/s Asc. Ao 98 cm/sec RVOT 73 cm/sec RA cm/sec PA 59 cm/sec AV Gradient Peak 3.9 mmHg AV Mean 1.9 mmHg AV Area 2.8 cm MV Gradient Peak 2.8 mmHg MV Mean 1.0 mmHg MV Area cm COMMENTS: Papier Mache Molder: Blanco [facility] Box Worker: 1 Dr. Smith TAPE# PACS Pericardial Effusion N DATE OF SERVICE: FINDINGS: 1. Left ventricular chamber size is mildly dilated. Left ventricular systolic function is preserved at 50%. 2. Left atrium, right atrium, and right ventricular chamber sizes are within normal limits. 3. Valvular structures have normal structure and motion. 4. Doppler interrogation reveals mild aortic insufficiency, trace tricuspid regurgitation, no other valvular insufficiency or stenosis. ECHOCARDIOGRAM REPORT [id number] BROOKE DAVALOS 5. No evidence of pericardial effusion or left ventricular thrombus. TRANSINT:[id number] Voice Confirmation ID: [id number] DOCUMENT ID: [id number] ASHLEE SMITH MD at 1702 CC: [id number] DICTATION DATE: 08/04/19 1550 RN SURGICAL PCU: 08/04/19 1748 ADM IN [place] [id number] [place] [id number]
--- NOTE | 2019-08-10 20:00 | NUR ---
ALERT RESTING IN BED NO C/O PAIN OR NEEDS AT THIS TIME, SEE SHIFT ASSESSMENT, CALL LIGHT IN REACH
[2019-08-10 20:41] VITALS: BP 115/72
[2019-08-11 01:39] VITALS: BP 126/81
[2019-08-11 04:49] VITALS: BP 126/77
[2019-08-11 06:56] LABS: BASOPHILS 0 % (0-2); EOSINOPHILS 0 % (0-7); HEMATOCRIT 36.2 % (42.0-54.0); HEMOGLOBIN 11.6 g/dL (13.5-17.5); MCV 90.5 fL (80.0-100.0); MONOCYTES 4.2 % (2-11); NEUTROPHILS 88.8 % (40-80); PLATELET COUNT 196 10x3/uL (130-400); RDW 14.7 % (11.5-14.5); WBC 7.8 10x3/uL (4.8-10.8)
[2019-08-11 07:08] LABS: ALBUMIN 1.9 g/dL (3.4-5.0); ALKALINE PHOSPHATASE 74 U/L (46-116); ALT (SGPT) 21 U/L (10-68); BILIRUBIN - TOTAL 0.48 mg/dL (0.2-1.3); CALC OSMOLALITY 293 mosm/kg (275-300); CARBON DIOXIDE 37.5 mmol/L (21.0-32.0); CHLORIDE - SERUM 102 mmol/L (98-107); GLUCOSE 260 mg/dL (74-106); POTASSIUM - SERUM 3.8 mmol/L (3.5-5.1); PROTEIN - SERUM 5.3 g/dL (6.4-8.2); SODIUM 140 mmol/L (136-145); UREA NITROGEN 28 mg/dL (7-18); eGFR NON AFRICAN AMERICAN 79 mL/min (90-120)
--- NOTE | 2019-08-11 08:02 | NUR ---
AWAKE AND ALERT. ORIENTED X3. NO C/O AT THIS TIME. LUNGS ARE DIMINISHED THROUGHOUT, NO COUGH NOTED. SKIN IS INTACT WITHOUT REDNSS. IV TO RIGHT HAND IS PATENT WITHOUT REDNESS AT INSERTION SITE. GEORGE IS PATENT WITH CLEAR YELLOW URINE. COLOSTOMY IS PATENT WITH LIGHT BROWN LIQUID STOOL. BIPAP OFF AT THIS TIME. O2 AT 3L NC. DENIES NEEDS.
[2019-08-11 09:01] VITALS: BP 157/85
--- NOTE | 2019-08-11 10:00 | NUR ---
RESTING QUIETLY IN BED. DENIES NEEDS.
[2019-08-11 11:30] VITALS: BP 138/87
--- NOTE | 2019-08-11 12:00 | NUR ---
FSBS 269. GIVEN 10 UNITS REGULAR SUBQ PER SS.
--- NOTE | 2019-08-11 15:07 | NUR ---
OT NOTE: PT DOING WELL TODAY; BED MOB TO INCLUDE ROLLING SIDE TO SIDE WITH MIN ASSIST; SUPINE TO SIT WITH MIN ASSIST; ABLE TO WASH HANDS AND FACE WITH SET UP AND WASH CLOTH; MOD ASSIST TO KAMALJIT SOCKS. UE/LE EXS WHILE ON EOB WITH MIN REST BREAKS. SIT TO STAND WITH WALKER AND MIN/MOD ASSIST; ABLE TO AMB A FEW STEPS FORWARD AND BACKWARD WITH WALKER, GAIT BELT, AND MIN/MOD ASSIST. SIDE STEPS WITH MIN ASSIST. BED MOB BACK TO BED WITH MOD ASSIST. WILL ATTEMPT TO GET PT UP IN CHAIR TOMORROW AND CONT WITH ADLS AND STRENGTHENING EXS. JESSICA BROWER, OTR/L
--- NOTE | 2019-08-11 16:24 | NUR ---
OT NOTE: PT COMPLETED BED MOB WITH MIN A. PT COMPLETED SUPINE TO SIT WITH SBA. PT COMPLETED ADL MOB WITH MIN A. PT COMPLETED UE AROM AXS. THANK YOU,LUCILA LAI
--- NOTE | 2019-08-11 17:00 | NUR ---
FSBS 304. GIVEN 12 UNITS REGULAR SUBQ PER SS. DENIES NEEDS.
[2019-08-11 17:23] VITALS: BP 123/83
--- NOTE | 2019-08-11 19:25 | NUR ---
PT LYING IN BED WITHOUT DISTRESS, AOX4. IV RIGHT HAND SL. SECOND IV TO RIGHT HAND INFUSING NS @ 30. O2 4L/NC. GEORGE DRAINING CLEAR YELLOW URINE. COLOSTOMY TO LLQ. DENIES NEEDS. CL IN REACH, WILL CTM
[2019-08-11 20:14] VITALS: BP 129/69
[2019-08-12 01:02] VITALS: BP 127/82
[2019-08-12 05:11] VITALS: BP 145/81
[2019-08-12 07:08] LABS: BASOPHILS 0.1 % (0-2); EOSINOPHILS 0.3 % (0-7); HEMATOCRIT 38.2 % (42.0-54.0); HEMOGLOBIN 12.1 g/dL (13.5-17.5); IMMATURE GRANULOCYTES 2.3 % (0-5); LYMPHOCYTES 8.7 % (15-50); MCH 28.9 pg (26.0-34.0); MCHC 31.7 g/dL (31.0-37.0); MCV 91.2 fL (80.0-100.0); MEAN PLATELET VOLUME 9.6 fL (7.4-10.4); MONOCYTES 7.7 % (2-11); NEUTROPHILS 80.9 % (40-80); PLATELET COUNT 163 10x3/uL (130-400); RBC 4.19 10x6/uL (4.20-6.10); RDW 14.5 % (11.5-14.5); WBC 7.4 10x3/uL (4.8-10.8)
[2019-08-12 07:14] LABS: ALBUMIN 1.9 g/dL (3.4-5.0); ALKALINE PHOSPHATASE 69 U/L (46-116); ALT (SGPT) 20 U/L (10-68); BILIRUBIN - TOTAL 0.52 mg/dL (0.2-1.3); CALC OSMOLALITY 285 mosm/kg (275-300); CALCIUM 7.5 mg/dL (8.5-10.1); CARBON DIOXIDE 37.7 mmol/L (21.0-32.0); CHLORIDE - SERUM 102 mmol/L (98-107); CREATININE - SERUM 0.9 mg/dL (0.6-1.3); POTASSIUM - SERUM 3.3 mmol/L (3.5-5.1); PROTEIN - SERUM 5.1 g/dL (6.4-8.2); SODIUM 140 mmol/L (136-145); UREA NITROGEN 24 mg/dL (7-18); eGFR NON AFRICAN AMERICAN 90 mL/min (90-120)
[2019-08-12 07:15] LABS: GLUCOSE 157 mg/dL (74-106)
--- NOTE | 2019-08-12 07:44 | NUR ---
REPORT RECIEVED. PT LYING ON RIGHT SIDE. HE HAS 2 PIV TO THE RIGHT HAND, ONE IS SL THE OTHER IS INFUSING NS @ 30. PT HAS A GEORGE DRAINING URINE. RR EVEN AND UNLABORED ON 4L NC. BED LOCKED AND IN LOWEST POSITION, CALL LIGHT WTIHIN REACH WILL CTM.
[2019-08-12 09:22] VITALS: BP 119/72
--- NOTE | 2019-08-12 12:54 | NUR ---
OT NOTE: PT DOING WELL. WANTED TO GET UP OUT OF BED; CONT TO REQUIRE EXTENDED TIME AND ASSIST WITH SUPINE TO SIT. HOWEVER, ONCE ASSISTED TO EOB, PT EXHIBITS GOOD SITTING BALANCE. ABLE TO PERFORM SIMPLE GROOMING TASKS WITH SET UP; SIT TO STAND WITH MIN/MOD ASSIST; ABLE TO AMB APPROX 6STEPS FROM BED TO CHAIR WITH WALKER AND MIN ASSIST. FEEDING WITH SET UP OF TRAY. WILL CONT TO ADVANCE WITH TMT. JESSICA BROWER, OTR/L
[2019-08-12 14:25] VITALS: BP 149/79
--- NOTE | 2019-08-12 15:18 | NUR ---
OT NOTE: PT COMPLETED SUPINE TO SIT WITH MIN A. PT COMPLETED SIT TO STAND WITH CGA/MIN A. PT COMPLETED BUE AROM AXS. PT COMPLETED FACE WASH WITH SETUP. THANK YOU, LUCILA LAI
--- NOTE | 2019-08-12 15:44 | NUR ---
I have reviewed this patient and I concur with the Shift Assessment completed by the Licensed Practical Nurse today this shift.
[2019-08-12 16:34] VITALS: BP 105/66
--- NOTE | 2019-08-12 19:25 | NUR ---
PT SITTING UP IN BED WITHOUT DISTRESS, AOX4. IV RIGHT HAND INFUSING NS @ 30. O2 4L/NC. COLOSTOMY NOTED. TELE IN PLACE, 85SR. GEORGE DRAINING CLEAR YELLOW URINE. DENIES NEEDS AT THIS TIME. CL IN REACH, WILL CTM
[2019-08-12 19:30] VITALS: BP 108/64
[2019-08-13 00:52] VITALS: BP 110/67
[2019-08-13 05:00] VITALS: BP 127/70
[2019-08-13 07:32] LABS: CALC OSMOLALITY 283 mosm/kg (275-300); CALCIUM 7.9 mg/dL (8.5-10.1); CARBON DIOXIDE 36.3 mmol/L (21.0-32.0); CHLORIDE - SERUM 100 mmol/L (98-107); CREATININE - SERUM 0.7 mg/dL (0.6-1.3); GLUCOSE 192 mg/dL (74-106); PHOSPHOROUS 1.9 mg/dL (2.5-4.9); POTASSIUM - SERUM 3.7 mmol/L (3.5-5.1); PRO BNP 2765 pg/mL (0-125); SODIUM 138 mmol/L (136-145); UREA NITROGEN 21 mg/dL (7-18); eGFR NON AFRICAN AMERICAN > 90 mL/min (90-120)
--- NOTE | 2019-08-13 07:48 | NUR ---
PT IS RESTING IN BED WITH EYES CLOSED. RESPIRATIONS ARE EVEN AND UNLABORED. PT WITH BIPAP ON. PT IS EASILY AROUSED WITH VERBAL STIMULATION. UPON AROUSAL PT IS AAO X 4. PT DENIES PRESENCE OF PAIN/N/V AT THIS TIME. PIV TO RIGHT HAND INFUSING WITHOUT DIFFICULTY. GEORGE CATHETER DRAINING WITHOUT DIFFICULTY. CLEAR DARK YELLOW URINE NOTED TO COLLECTION BAG. ABDOMEN IS DISTENDED. BS ARE HYPOACTIVE AND FAINT X 4 QUADRANTS. COLOSTOMY TO LLQ IS NOTED AND SCANT AMOUNT OF LIGHT BROWN LIQUID STOOL NOTED. BED IS IN THE LOWEST POSITION. CALL LIGHT AND BEDSIDE TABLE ARE WITHIN REACH. SIDE RAILS X 2. PT DENIES FURTHER NEEDS. WILL CONT TO MONITOR.
[2019-08-13 08:45] VITALS: BP 133/92
[2019-08-13 10:09] LABS: BASOPHILS 0.1 % (0-2); EOSINOPHILS 1.1 % (0-7); HEMATOCRIT 40.5 % (42.0-54.0); HEMOGLOBIN 12.7 g/dL (13.5-17.5); IMMATURE GRANULOCYTES 3.2 % (0-5); LYMPHOCYTES 10.3 % (15-50); MCH 28.6 pg (26.0-34.0); MCHC 31.4 g/dL (31.0-37.0); MCV 91.2 fL (80.0-100.0); MEAN PLATELET VOLUME 9.5 fL (7.4-10.4); MONOCYTES 6.3 % (2-11); PLATELET COUNT 141 10x3/uL (130-400); RBC 4.44 10x6/uL (4.20-6.10); RDW 14.3 % (11.5-14.5); WBC 7.3 10x3/uL (4.8-10.8)
[2019-08-13 12:13] VITALS: BP 125/86
--- NOTE | 2019-08-13 12:25 | NUR ---
OT NOTE: PT PERFORMED VERY WELL TODAY. BED MOB INCLUDING SUPINE TO SIT WITH MIN ASSIST AND EXTENDED TIME. ABLE TO WASH FACE, HANDS, AND ARMS WITH WASHCLOTH AND SET UP; MAX ASSIST TO KAMALJIT SOCKS; UE/LE EXS WHILE ON EOB; PT ABLE TO AMB IN ROOM WITH WALKER AND CGA GREATER THAN 15 FT; PT AMB WITH P.T. INTO HALLWAY GREATER THAN 40 FT TODAY. JESSICA BROWER, OTR/L
[2019-08-13 16:27] VITALS: BP 149/75
[2019-08-13 19:30] VITALS: BP 99/66
--- NOTE | 2019-08-13 19:58 | NUR ---
OT NOTE: PT COMPLETED BED MOB TASKS WITH CGA. PT COMPLETED ADL MOB WITH CGA. PT COMPLETED EOB SITTING SBA. PT COMPLETED UE AROM AX. THANK YOU, LUCILA LAI
[2019-08-14 00:30] VITALS: BP 110/81
--- NOTE | 2019-08-14 00:39 | NUR ---
I have reviewed this patient and I concur with the Shift Assessment completed by the Licensed Practical Nurse today this shift.
[2019-08-14 04:52] VITALS: BP 125/80
[2019-08-14 07:34] LABS: ALBUMIN 1.8 g/dL (3.4-5.0); ALKALINE PHOSPHATASE 63 U/L (46-116); ALT (SGPT) 17 U/L (10-68); BILIRUBIN - TOTAL 0.55 mg/dL (0.2-1.3); CARBON DIOXIDE 36.8 mmol/L (21.0-32.0); CHLORIDE - SERUM 101 mmol/L (98-107); POTASSIUM - SERUM 4.2 mmol/L (3.5-5.1); PROTEIN - SERUM 5.4 g/dL (6.4-8.2); SODIUM 138 mmol/L (136-145); UREA NITROGEN 22 mg/dL (7-18); eGFR NON AFRICAN AMERICAN 90 mL/min (90-120)
[2019-08-14 07:41] LABS: CALC OSMOLALITY 287 mosm/kg (275-300); CREATININE - SERUM 0.9 mg/dL (0.6-1.3); GLUCOSE 257 mg/dL (74-106)
--- NOTE | 2019-08-14 08:00 | NUR ---
ALERT AND ORIENTED X4. TELEMETRY INTACT WITH HRRR. DENEIS ANY CHEST PAIN OR DISCOMFORT. IVF INF;USING AT PRESCRIBED RATE. COLOSTOMY INTACT WITH BOWEL SOUNDS NOTED. ENCOURAGED TO USE CALL LIGHT FOR ASSIST.
[2019-08-14 09:01] VITALS: BP 129/80
[2019-08-14 10:42] LABS: BASOPHILS 0.1 % (0-2); EOSINOPHILS 1.4 % (0-7); HEMATOCRIT 40.1 % (42.0-54.0); HEMOGLOBIN 12.6 g/dL (13.5-17.5); IMMATURE GRANULOCYTES 3.1 % (0-5); LYMPHOCYTES 11.7 % (15-50); MCH 28.6 pg (26.0-34.0); MCHC 31.4 g/dL (31.0-37.0); MCV 91.1 fL (80.0-100.0); MEAN PLATELET VOLUME 9.7 fL (7.4-10.4); NEUTROPHILS 78.7 % (40-80); PLATELET COUNT 160 10x3/uL (130-400); RDW 14.4 % (11.5-14.5); WBC 7.2 10x3/uL (4.8-10.8)
--- NOTE | 2019-08-14 12:11 | NUR ---
NUTRITION F//U PT TOLERATING REG DIET, 75% INTAKE RECENT MEALS. WILL HONOR FOOD PREFERENCES, MONITOR PO INTAKE. RD FOLLOWING
[2019-08-14 12:59] VITALS: BP 127/82
[2019-08-14 16:13] VITALS: BP 106/61
[2019-08-14 20:00] VITALS: BP 105/63
--- NOTE | 2019-08-14 21:30 | NUR ---
LYING QUIELTY WITH NO DISTESS NOTED. RESP UNLAOBRED. O2 @ 3L PER NC ON.COLOSTOMY INTACT WITH STOMA PINK. GEORGE PATENT AND DRAINAING YELLOW URINE. CL IN REACH
[2019-08-15] VITALS: BP 96/61
[2019-08-15 04:00] VITALS: BP 108/73
--- NOTE | 2019-08-15 04:42 | NUR ---
I have reviewed this patient and I concur with the Shift Assessment completed by the Licensed Practical Nurse today this shift.
--- NOTE | 2019-08-15 07:20 | NUR ---
PT LYING IN BED WITH BIPAP ON, LYING ON LEFTR SIDE, NO S/S OF DISTRESS, BED IN LOW POSITION CL IN REACH ASSUME PT CARE
[2019-08-15 07:26] LABS: ALBUMIN 1.8 g/dL (3.4-5.0); ALKALINE PHOSPHATASE 56 U/L (46-116); ALT (SGPT) 16 U/L (10-68); BILIRUBIN - TOTAL 0.43 mg/dL (0.2-1.3); CALC OSMOLALITY 288 mosm/kg (275-300); CALCIUM 7.7 mg/dL (8.5-10.1); CARBON DIOXIDE 35.3 mmol/L (21.0-32.0); CHLORIDE - SERUM 102 mmol/L (98-107); CREATININE - SERUM 0.9 mg/dL (0.6-1.3); GLUCOSE 237 mg/dL (74-106); PROTEIN - SERUM 4.9 g/dL (6.4-8.2); SODIUM 139 mmol/L (136-145); UREA NITROGEN 21 mg/dL (7-18); eGFR NON AFRICAN AMERICAN 90 mL/min (90-120)
[2019-08-15 08:26] VITALS: BP 96/61
[2019-08-15 11:25] LABS: BASOPHILS 0 % (0-2); EOSINOPHILS 0.9 % (0-7); HEMATOCRIT 39.1 % (42.0-54.0); HEMOGLOBIN 12.4 g/dL (13.5-17.5); IMMATURE GRANULOCYTES 1.2 % (0-5); LYMPHOCYTES 9.7 % (15-50); MCH 28.7 pg (26.0-34.0); MCHC 31.7 g/dL (31.0-37.0); MCV 90.5 fL (80.0-100.0); MEAN PLATELET VOLUME 10.2 fL (7.4-10.4); MONOCYTES 3.6 % (2-11); NEUTROPHILS 84.6 % (40-80); PLATELET COUNT 132 10x3/uL (130-400); RBC 4.32 10x6/uL (4.20-6.10); RDW 14.6 % (11.5-14.5); WBC 8.7 10x3/uL (4.8-10.8)
[2019-08-15 12:43] VITALS: BP 107/61
--- NOTE | 2019-08-15 14:38 | NUR ---
PT CURRENTLY SLEEPING WITH BIPAP ON, NO S/S OF DISTRESS NOTED AT THIS TIME. WILL CONT TO MONITOR.
[2019-08-15 16:23] VITALS: BP 92/41
[2019-08-15 20:00] VITALS: BP 93/50
--- NOTE | 2019-08-15 20:00 | NUR ---
RESTING IN BED WITH NO SIGNS OF ACUTE DISTRESS. IV TO THE RT HAND WITH NO REDNESS OR SWELLING. NC @3L AND GEORGE IN PLACE. OSTOMY TO THE RUQ, STOMA PINK AND MOIST. ASSISTED WITH BIPAP PLACEMENT. DENIES NO FURTHER NEEDS AT THIS TIME. CONTINUE WITH PLAN OF CARE.
[2019-08-16] VITALS: BP 100/60
[2019-08-16 05:01] LABS: ALBUMIN 1.8 g/dL (3.4-5.0); ALKALINE PHOSPHATASE 54 U/L (46-116); ALT (SGPT) 15 U/L (10-68); CALC OSMOLALITY 284 mosm/kg (275-300); CARBON DIOXIDE 35.9 mmol/L (21.0-32.0); CHLORIDE - SERUM 103 mmol/L (98-107); CREATININE - SERUM 0.9 mg/dL (0.6-1.3); GLUCOSE 214 mg/dL (74-106); POTASSIUM - SERUM 3.7 mmol/L (3.5-5.1); PROTEIN - SERUM 4.9 g/dL (6.4-8.2); SODIUM 138 mmol/L (136-145); UREA NITROGEN 22 mg/dL (7-18); eGFR NON AFRICAN AMERICAN 90 mL/min (90-120)
[2019-08-16 07:57] VITALS: BP 121/76
--- NOTE | 2019-08-16 08:14 | NUR ---
ALERT AND ORIENTED, RESTING IN BED EYES OPEN. NO C/O PAIN. NO S/S OF ACUTE DISTRESS NOTED. ON BEDREST. ON 3L O2, NC. ON TELEMETRY 83 SR. OSTOMY TO LUQ, HERNIA JUST BELOW OSTOMY. GEORGE CATHETER PRESENT. IV TO RIGHT HAND, NS INFUSING @ 30ML/HR. SITE PATENT WITHOUT REDNESS OR SWELLING. DENIES ANY NEEDS AT THIS TIME. CALL LIGHT IN REACH. WILL CONTINUE TO MONITOR.
[2019-08-16] MEDS ORDERED: AMIODARONE HCL200 MG PO (11:47)
[2019-08-16] MEDS ORDERED: BROVANA15 MCG/2 M INH (11:47)
[2019-08-16] MEDS ORDERED: ATROVENT 0.02%2.5 ML UPD (11:47)
[2019-08-16] MEDS ORDERED: CARAFATE1 G PO (11:48)
[2019-08-16] MEDS ORDERED: PULMICORT0.5 MG/21 UPD (11:48)
[2019-08-16] MEDS ORDERED: K-DUR20 MEQ PO (11:48)
[2019-08-16] MEDS ORDERED: FLORAJEN3 CAPS460 MG PO (11:48)
[2019-08-16] MEDS ORDERED: PREDNISONE10 MG PO (11:49)
[2019-08-16] MEDS ORDERED: LEVOFLOXACIN500 MG PO (11:49)
[2019-08-16] MEDS ORDERED: Lantus Insulin SC (11:50)
[2019-08-16] MEDS ORDERED: XOPENEX 1.1.25 MG/3 UPD (11:50)
--- NOTE | 2019-08-16 12:02 | MORECARE ---
CASE MANAGEMENT DISCHARGE SUMMARY PATIENT: BROOKE DAVALOS UNIT: [id number] ADM DATE: 08/02/19 AGE: 64 : 53 SEX: M ROOM/BED: D.2234 AUTHOR: CROW,DOC PHYSICIAN: REFERRING PHYSICIAN: BRIANNA LAFLEUR MD DATE OF SERVICE: 08/16/19 Discharge Plan Patient Name: BROOKE DAVALOS Facility: [facility]:[place] : 1955 Planned Disposition: Anticipated Discharge Date: Discharge Date: Expected LOS: Initial Reviewer: [email or web address] Initial Review Date: 08/03/2019 Generated: 08/16/19 1:02 pm Comments DCP- Discharge Planning Updated by [email or web address]: Roxanne Regalado on 08/16/19 10:[address] Patient Name: BROOKE DAVALOS Admission Status: ER Accout number: [id number] Admission Date: 08-02-2019 : 1955 Admission Diagnosis:SEPSIS, UNSPECIFIED ORGANISM Attending: BRIANNA LAFLEUR Current LOS: 14 Anticipated DC Date: Planned Disposition: Primary Insurance: MEDICAID [place] Discharge Planning Comments: PATIENT HAS 02 AND PORTABLE. ALSO HAS OTHER EQUIPMENT AT HOME. NO OTHER NEEDS. PLANS TO [facility] . CM WILL FAX DOCUMENTS TO [facility] . Erco Machine Operator: Roxanne Regalado DCP- Discharge Planning Updated by [id number]: Joanna Del Valle on 08/05/19 7:[address] Patient Name: BROOKE DVAALOS Admission Status: ER Accout number: [id number] Admission Date: 08-02-2019 : 1955 Admission Diagnosis:SEPSIS, UNSPECIFIED ORGANISM Attending: BRIANNA LAFLEUR Current LOS: 3 Anticipated DC Date: Planned Disposition: Primary Insurance: MEDICAID [place] Discharge Planning Comments: CM met with patient at bedside after explaining CM role and obtaining verbal consent. Patient lives at home alone where he is independent with his care and plans to return there upon discharge. Patient feels this would be a safe discharge. CM discussed availability / needs of home health and medical equipment. Patient states he has Home 02 / portable 02 / nebulizer with [employer]. Patient denies any discharge needs at this time. Patient states he will have his friend drive him home upon discharge. CM will continue to follow and assist as needed with discharge planning / needs. Erco Machine Operator: Joanna Del Valle DCP- Discharge Planning Updated by [email or web address] Del Valle on 08/04/19 6:[address] Patient having procedure / testing at bedside. CM will evaluate later.CM will continue to follow and assist as needed with discharge planning / needs DCP- Discharge Planning Updated by DANY Del Valle on 08/03/19 5:[address] CM attempted to get discharge planning assessment completed but patient kept falling asleep while CM getting information CM will see patient later for patient initial discharge planning assessment. CM will continue to follow and assist as needed with discharge planning / needs DCPIA - Discharge Planning Initial Assessment Updated by SIMON: Joanna Del Valle on 08/05/19 8:56 pm * Is the patient Alert and Oriented? Yes * How many steps to enter\exit or inside your home? * PCP [facility] * Pharmacy [facility] * Preadmission Environment Home Alone * ADLs Independent * Other Equipment HOME / PORTABLE 02, POWERCHAIR, LIFT CHAIR, HOSP BED, NEBULIZER * List name and contact numbers for known caregivers / representatives who currently or will assist patient after discharge: SHIRAZ DAVALOS [phone] * Verbal permission to speak to the caregivers and representatives has been obtained from the patient. Yes * Community resources currently utilized Home Health * Please name any agencies selected above. [facility] * Additional services required to return to the preadmission environment? No * Can the patient safely return to the preadmission environment? Yes * Has this patient been hospitalized within the prior 30 days at any hospital? No External Providers External Provider: [facility] Next Contact Date: Service Request Date: Service Type: Resolution: Reviewer: Comments: Coverage Notice Reviewer: [email or web address] - Joanna Del Valle Notice Issued Date-Time: 08/06/2019 10:30 Notice Type: Patient Choice Letter Notice Delivered To: Patient Relationship to Patient: Self Tea Plantation Worker Name: Delivery Method: HAND - Hand Delivered Renea Days: Prior Verbal Notification: Recipient Understood Notice: Yes Recipient Signature: Yes Med Rec Note Co-signed by Attending: Coverage Notice Comment: Last DP export: 08/05/19 8:01 Patient Name: BROOKE DAVALOS Page [id number] at 1202 All edits/amendments must be made on the electronic document DICTATION DATE: 08/16/191201 POWER BUILDER DEVELOPER: HIEN 08/16/191201 RPT#: [id number] DC DATE: STATUS: ADM IN [facility] [address] [place] [address] END OF REPORT
[2019-08-16 12:11] VITALS: BP 132/60
--- NOTE | 2019-08-16 12:57 | MORECARE ---
CASE MANAGEMENT DISCHARGE SUMMARY PATIENT: BROOKE DAVALOS UNIT: [id number] ADM DATE: 08/02/19 AGE: 64 : 53 SEX: M ROOM/BED: D.2234 AUTHOR: CROW,DOC PHYSICIAN: REFERRING PHYSICIAN: BRIANNA LAFLEUR MD DATE OF SERVICE: 08/16/19 Discharge Plan Patient Name: BROOKE DAVALOS Facility: [facility]:[place] : 1955 Planned Disposition: Anticipated Discharge Date: Discharge Date: Expected LOS: Initial Reviewer: [email or web address] Initial Review Date: 08/03/2019 Generated: 08/16/19 1:56 pm Comments DCP- Discharge Planning Updated by [email or web address]: Roxanne Regalado on 08/16/19 10:[address] Patient Name: RBOOKE DAVALOS Admission Status: ER Accout number: [id number] Admission Date: 08-02-2019 : 1955 Admission Diagnosis:SEPSIS, UNSPECIFIED ORGANISM Attending: BRIANNA LAFLEUR Current LOS: 14 Anticipated DC Date: Planned Disposition: Primary Insurance: MEDICAID [place] Discharge Planning Comments: PATIENT HAS 02 AND PORTABLE. ALSO HAS OTHER EQUIPMENT AT HOME. NO OTHER NEEDS. PLANS TO [facility] . CM WILL FAX DOCUMENTS TO [facility] . Blast Furnace Keeper: Roxanne Regalado DCP- Discharge Planning Updated by [email or web address]: Joanna Del Valle on 08/05/19 7:[address] Patient Name: BROOKE DAVALOS Admission Status: ER Accout number: [id number] Admission Date: 08-02-2019 : 1955 Admission Diagnosis:SEPSIS, UNSPECIFIED ORGANISM Attending: BRIANNA LAFLEUR Current LOS: 3 Anticipated DC Date: Planned Disposition: Primary Insurance: MEDICAID [place] Discharge Planning Comments: CM met with patient at bedside after explaining CM role and obtaining verbal consent. Patient lives at home alone where he is independent with his care and plans to return there upon discharge. Patient feels this would be a safe discharge. CM discussed availability / needs of home health and medical equipment. Patient states he has Home 02 / portable 02 / nebulizer with [employer]. Patient denies any discharge needs at this time. Patient states he will have his friend drive him home upon discharge. CM will continue to follow and assist as needed with discharge planning / needs. Blast Furnace Keeper: Joanna Del Valle DCP- Discharge Planning Updated by [id number] Del Valle on 08/04/19 6:[address] Patient having procedure / testing at bedside. CM will evaluate later.CM will continue to follow and assist as needed with discharge planning / needs DCP- Discharge Planning Updated by DANY Del Valle on 08/03/19 5:[address] CM attempted to get discharge planning assessment completed but patient kept falling asleep while CM getting information CM will see patient later for patient initial discharge planning assessment. CM will continue to follow and assist as needed with discharge planning / needs DCPIA - Discharge Planning Initial Assessment Updated by [email or web address]: Joanna Del Valle on 08/05/19 8:56 pm * Is the patient Alert and Oriented? Yes * How many steps to enter\exit or inside your home? * PCP [facility] * Pharmacy [facility] * Preadmission Environment Home Alone * ADLs Independent * Other Equipment HOME / PORTABLE 02, POWERCHAIR, LIFT CHAIR, HOSP BED, NEBULIZER * List name and contact numbers for known caregivers / representatives who currently or will assist patient after discharge: SHIRAZ DAVALOS [phone] * Verbal permission to speak to the caregivers and representatives has been obtained from the patient. Yes * Community resources currently utilized Home Health * Please name any agencies selected above. [facility] * Additional services required to return to the preadmission environment? No * Can the patient safely return to the preadmission environment? Yes * Has this patient been hospitalized within the prior 30 days at any hospital? No External Providers External Provider: [facility] Next Contact Date: Service Request Date: Service Type: Resolution: Reviewer: Comments: Coverage Notice Reviewer: [email or web address] Lindsey Del Valle Notice Issued Date-Time: 08/06/2019 10:30 Notice Type: Patient Choice Letter Notice Delivered To: Patient Relationship to Patient: Self Insecticide Sprayer Name: Delivery Method: HAND - Hand Delivered Renea Days: Prior Verbal Notification: Recipient Understood Notice: Yes Recipient Signature: Yes Med Rec Note Co-signed by Attending: Coverage Notice Comment: Last DP export: 08/16/19 11:02 a Patient Name: BROOKE DAVALOS Page [phone] at 1257 All edits/amendments must be made on the electronic document DICTATION DATE: 08/16/191255 GOLDBEATER: HIEN 08/16/191255 RPT#: [id number] DC DATE: STATUS: ADM IN [facility] [address] [place] [address] END OF REPORT
--- NOTE | 2019-08-16 13:25 | MORECARE ---
CASE MANAGEMENT DISCHARGE SUMMARY PATIENT: BROOKE DAVALOS UNIT: [id number] ADM DATE: 08/02/19 AGE: 64 : 51 SEX: M ROOM/BED: D.2234 AUTHOR: CROW,DOC PHYSICIAN: REFERRING PHYSICIAN: BRIANNA LAFLEUR MD DATE OF SERVICE: 08/16/19 Discharge Plan Patient Name: BROOKE DAVALOS Facility: [facility]:[place] : 1955 Planned Disposition: Anticipated Discharge Date: Discharge Date: Expected LOS: Initial Reviewer: [id number] Initial Review Date: 08/03/2019 Generated: 08/16/19 2:25 pm Comments DCP- Discharge Planning Updated by [email or web address]: Roxanne Regalado on 08/16/19 10:[address] Patient Name: BROOKE DAVALOS Admission Status: ER Accout number: [id number] Admission Date: 08-02-2019 : 1955 Admission Diagnosis:SEPSIS, UNSPECIFIED ORGANISM Attending: BRIANNA LAFLEUR Current LOS: 14 Anticipated DC Date: Planned Disposition: Primary Insurance: MEDICAID [place] Discharge Planning Comments: PATIENT HAS 02 AND PORTABLE. ALSO HAS OTHER EQUIPMENT AT HOME. NO OTHER NEEDS. [facility]ANS [facility] . CM WILL FAX DOCUMENTS TO [facility] . Senior Mainframe Programmer Analyst: Roxanne Regalado DCP- Discharge Planning Updated by [email or web address]: Joanna Del Valle on 08/05/19 7:[address] Patient Name: BROOKE DAVALOS Admission Status: ER Accout number: [id number] Admission Date: 08-02-2019 : 1955 Admission Diagnosis:SEPSIS, UNSPECIFIED ORGANISM Attending: BRIANNA LAFLEUR Current LOS: 3 Anticipated DC Date: Planned Disposition: Primary Insurance: MEDICAID [place] Discharge Planning Comments: CM met with patient at bedside after explaining CM role and obtaining verbal consent. Patient lives at home alone where he is independent with his care and plans to return there upon discharge. Patient feels this would be a safe discharge. CM discussed availability / needs of home health and medical equipment. Patient states he has Home 02 / portable 02 / nebulizer with [facility]. Patient denies any discharge needs at this time. Patient states he will have his friend drive him home upon discharge. CM will continue to follow and assist as needed with discharge planning / needs. Senior Mainframe Programmer Analyst: Joanna Del Valle DCP- Discharge Planning Updated by [id number]: Joanna Del Valle on 08/04/19 6:[address] Patient having procedure / testing at bedside. CM will evaluate later.CM will continue to follow and assist as needed with discharge planning / needs DCP- Discharge Planning Updated by DANY Del Valle on 08/03/19 5:[address] CM attempted to get discharge planning assessment completed but patient kept falling asleep while CM getting information CM will see patient later for patient initial discharge planning assessment. CM will continue to follow and assist as needed with discharge planning / needs DCPIA - Discharge Planning Initial Assessment Updated by SIMON: Joanna Del Valle on 08/05/19 8:56 pm * Is the patient Alert and Oriented? Yes * How many steps to enter\exit or inside your home? * PCP [facility] * Pharmacy [facility] * Preadmission Environment Home Alone * ADLs Independent * Other Equipment HOME / PORTABLE 02, POWERCHAIR, LIFT CHAIR, HOSP BED, NEBULIZER * List name and contact numbers for known caregivers / representatives who currently or will assist patient after discharge: SHIRAZ [facility]ALOS [facility] [phone] * Verbal permission to speak to the caregivers and representatives has been obtained from the patient. Yes * Community resources currently utilized Home Health * Please name any agencies selected above. [facility] * Additional services required to return to the preadmission environment? No * Can the patient safely return to the preadmission environment? Yes * Has this patient been hospitalized within the prior 30 days at any hospital? No External Providers External Provider: OTHER-OTHER Next Contact Date: Service Request Date: Service Type: Resolution: Reviewer: Comments: External Provider: OTHER-OTHER Next Contact Date: Service Request Date: Service Type: Resolution: Reviewer: Comments: Coverage Notice Reviewer: [id number] Lindsey Del Valle Notice Issued Date-Time: 08/06/2019 10:30 Notice Type: Patient Choice Letter Notice Delivered To: Patient Relationship to Patient: Self Fish [employer] Wildlife Scientific Aid Name: Delivery Method: HAND - Hand Delivered Renea Days: Prior Verbal Notification: Recipient Understood Notice: Yes Recipient Signature: Yes Med Rec Note Co-signed by Attending: Coverage Notice Comment: Last DP export: 08/16/19 11:56 a Patient Name: BROOKE DAVALOS Page 55410 at 1325 All edits/amendments must be made on the electronic document DICTATION DATE: 08/16/191324 AMMUNITION STOREKEEPER: HIEN 08/16/19 1325 RPT#: [id number] DC DATE: STATUS: ADM IN [facility] [address] [place] [address] END OF REPORT
--- NOTE | 2019-08-16 13:32 | MORECARE ---
CASE MANAGEMENT DISCHARGE SUMMARY PATIENT: BROOKE DAVALOS UNIT: [id number] ADM DATE: 08/02/19 AGE: 64 : 53 SEX: M ROOM/BED: D.2234 AUTHOR: CROWDOC PHYSICIAN: REFERRING PHYSICIAN: BRIANNA LAFLEUR MD DATE OF SERVICE: 08/16/19 Discharge Plan Patient Name: BROOKE DAVALOS Facility: [facility]:[place] : 1955 Planned Disposition: Anticipated Discharge Date: Discharge Date: Expected LOS: Initial Reviewer: [id number] Initial Review Date: 08/03/2019 Generated: 08/16/19 2:32 pm Comments DCP- Discharge Planning Updated by [id number]: Roxanne Regalado on 08/16/19 12:[address] Patient Name: BROOKE DAVALOS Admission Status: ER Accout number: [id number] Admission Date: 08-02-2019 : 1955 Admission Diagnosis:SEPSIS, UNSPECIFIED ORGANISM Attending: BRIANNA LAFLEUR Current LOS: 14 Anticipated DC Date: Planned Disposition: Primary Insurance: MEDICAID [place] Discharge Planning Comments: PATIENT HAS 02 AND PORTABLE. ALSO HAS OTHER EQUIPMENT AT HOME. NO OTHER NEEDS. PLANS [facility]. CM WILL FAX DOCUMENTS TO [facility]. Traveling Construction Superintendent: Roxanne Regalado Appended by Roxanne Regalado on 08/16/2019 13:27 DIRECTOR OF REHABILITATIVE SERVICES: PATIENT NEEDS BIPAP PRIOR TO DC. HE USES [facility] IN [place] FOR HIS DME. I CALLED [facility] AND FAXED INFO FOR BIPAP. PHONE NUMBER [phone], FAX [phone]. THEY ARE CLOSED ON THE WEEKENDS AND BIPAP CAN NOT BE SET UP ON THE WEEKEND. I AM FAXING REFERRAL TO THEM NOW. CM TO FOLLOW AND ASSIST. DCP- Discharge Planning Updated by [id number]: Joanna Del Valle on 08/05/19 7:[address] Patient Name: BROOKE DAVALOS Admission Status: ER Accout number: [id number] Admission Date: 08-02-2019 : 1955 Admission Diagnosis:SEPSIS, UNSPECIFIED ORGANISM Attending: BRIANNA LAFLEUR Current LOS: 3 Anticipated DC Date: Planned Disposition: Primary Insurance: MEDICAID [place] Discharge Planning Comments: CM met with patient at bedside after explaining CM role and obtaining verbal consent. Patient lives at home alone where he is independent with his care and plans to return there upon discharge. Patient feels this would be a safe discharge. CM discussed availability / needs of home health and medical equipment. Patient states he has Home 02 / portable 02 / nebulizer with [facility]. Patient denies any discharge needs at this time. Patient states he will have his friend drive him home upon discharge. CM will continue to follow and assist as needed with discharge planning / needs. Traveling Construction Superintendent: Joanna Del Valle DCP- Discharge Planning Updated by [email or web address] Del Valle on 08/04/19 6:[address] Patient having procedure / testing at bedside. CM will evaluate later.CM will continue to follow and assist as needed with discharge planning / needs DCP- Discharge Planning Updated by DANY Del Valle on 08/03/19 5:[address] CM attempted to get discharge planning assessment completed but patient kept falling asleep while CM getting information CM will see patient later for patient initial discharge planning assessment. CM will continue to follow and assist as needed with discharge planning / needs DCPIA - Discharge Planning Initial Assessment Updated by DANY Del Valle on 08/05/19 8:56 pm * Is the patient Alert and Oriented? Yes * How many steps to enter\exit or inside your home? * PCP [facility] * Pharmacy [facility] * Preadmission Environment Home Alone * ADLs Independent * Other Equipment HOME / PORTABLE 02, POWERCHAIR, LIFT CHAIR, HOSP BED, NEBULIZER * List name and contact numbers for known caregivers / representatives who currently or will assist patient after discharge: SHIRAZ DAVALOS - [phone] * Verbal permission to speak to the caregivers and representatives has been obtained from the patient. Yes * Community resources currently utilized Home Health * Please name any agencies selected above. [facility] * Additional services required to return to the preadmission environment? No * Can the patient safely return to the preadmission environment? Yes * Has this patient been hospitalized within the prior 30 days at any hospital? No Coverage Notice Reviewer: [id number] Lindsey Del Valle Notice Issued Date-Time: 08/06/2019 10:30 Notice Type: Patient Choice Letter Notice Delivered To: Patient Relationship to Patient: Self Python Architect Name: Delivery Method: HAND - Hand Delivered Renea Days: Prior Verbal Notification: Recipient Understood Notice: Yes Recipient Signature: Yes Med Rec Note Co-signed by Attending: Coverage Notice Comment: Last DP export: 08/16/19 12:25 p Patient Name: BROOKE DAVALOS Page [id number] at 1332 All edits/amendments must be made on the electronic document DICTATION DATE: 08/16/19 1332 PECAN SHELLER: HIEN 08/16/19 1332 RPT#: [id number] DC DATE: STATUS: ADM IN [facility] [address] [place] [address] END OF REPORT
[2019-08-16 16:19] VITALS: BP 121/52
--- NOTE | 2019-08-16 18:43 | NUR ---
ALERT AND ORIENTED, RESTING IN BED. DENIES ANY NEEDS AT THIS TIME. CALL LIGHT IN REACH. WILL CONTINUE TO MONITOR.
--- NOTE | 2019-08-16 20:00 | NUR ---
LYING QUIELTY WITH NO DISTRESS NOTED. O2 @ 3L PER NC ON. RESP UNALBORED. GEORGE PATENT AND DRAINING CLEAR YELLOW URINE. IV TO RIGHT HAND INTACH WITHOUT REDENSS OR EDEMA NOTED. CL IN REACH
[2019-08-16 20:52] VITALS: BP 97/64
[2019-08-17 01:21] VITALS: BP 108/78
--- NOTE | 2019-08-17 02:47 | NUR ---
I have reviewed this patient and I concur with the Shift Assessment completed by the Licensed Practical Nurse today this shift.
[2019-08-17 05:06] LABS: ALBUMIN 1.9 g/dL (3.4-5.0); ALKALINE PHOSPHATASE 56 U/L (46-116); ALT (SGPT) 17 U/L (10-68); BILIRUBIN - TOTAL 0.38 mg/dL (0.2-1.3); CALC OSMOLALITY 288 mosm/kg (275-300); CALCIUM 7.3 mg/dL (8.5-10.1); CARBON DIOXIDE 35.9 mmol/L (21.0-32.0); CHLORIDE - SERUM 103 mmol/L (98-107); CREATININE - SERUM 0.9 mg/dL (0.6-1.3); GLUCOSE 180 mg/dL (74-106); POTASSIUM - SERUM 3.8 mmol/L (3.5-5.1); PROTEIN - SERUM 4.6 g/dL (6.4-8.2); SODIUM 141 mmol/L (136-145); UREA NITROGEN 21 mg/dL (7-18); eGFR NON AFRICAN AMERICAN 90 mL/min (90-120)
[2019-08-17 05:45] VITALS: BP 100/74
--- NOTE | 2019-08-17 07:40 | NUR ---
PT RESTING QUIETLY IN BED WITH EYES OPENED. RESP SHALLOW AT TIMES O2 @ 5L NC IN PLACE. IV TO RIGHT HAND WITH NS @ 30ML/HR INFUSING VIA PUMP. SITE WITHOUT REDNESS OR EDEMA. COLOSTOMY TO LEFT ABDOMEN, NO OUTPUT AT THIS TIME, STOMA IS PINK. F/C PATENT TO GRAVITY. PT DENIES PAIN AT THIS TIME. CL WITHIN REACH. ENCORUAGED TO CALL WITH NEEDS. CONTINUE POC
--- NOTE | 2019-08-17 08:20 | MORECARE ---
CASE MANAGEMENT DISCHARGE SUMMARY PATIENT: BROOKE DAVALOS UNIT: [id number] ADM DATE: 08/02/19 AGE: 64 : 53 SEX: M ROOM/BED: D.2234 AUTHOR: CROWDOC PHYSICIAN: REFERRING PHYSICIAN: BRIANNA LAFLEUR MD DATE OF SERVICE: 08/17/19 Discharge Plan Patient Name: BROOKE DAVALOS Facility: [facility]:[place] : 1955 Planned Disposition: Anticipated Discharge Date: Discharge Date: Expected LOS: Initial Reviewer: [id number] Initial Review Date: 08/03/2019 Generated: 08/17/19 9:20 am Comments DCP- Discharge Planning Updated by [id number]: Roxanne Regalado on 08/16/19 12:[address] Patient Name: BROOKE DAVALOS Admission Status: ER Accout number: [id number] Admission Date: 08-02-2019 : 1955 Admission Diagnosis:SEPSIS, UNSPECIFIED ORGANISM Attending: BRIANNA LAFLEUR Current LOS: 14 Anticipated DC Date: Planned Disposition: Primary Insurance: MEDICAID [place] Discharge Planning Comments: PATIENT HAS 02 AND PORTABLE. ALSO HAS OTHER EQUIPMENT AT HOME. NO OTHER NEEDS. [facility]. CM WILL FAX DOCUMENTS TO [facility]. Biodiesel Product Manager: Roxanne Regalado Appended by Roxanne Regalado on 08/16/2019 13:27 PHARMACOLOGY TEACHER: PATIENT NEEDS BIPAP PRIOR TO DC. HE USES [facility] IN [place] FOR HIS DME. I CALLED [facility] AND FAXED INFO FOR BIPAP. PHONE NUMBER [phone], FAX [phone]. THEY ARE CLOSED ON THE WEEKENDS AND BIPAP CAN NOT BE SET UP ON THE WEEKEND. I AM FAXING REFERRAL TO THEM NOW. CM TO FOLLOW AND ASSIST. DCP- Discharge Planning Updated by [id number]: Joanna Del Valle on 08/05/19 7:[address] Patient Name: BROOKE DAVALOS Admission Status: ER Accout number: [id number] Admission Date: 08-02-2019 : 1955 Admission Diagnosis:SEPSIS, UNSPECIFIED ORGANISM Attending: BRIANNA LAFLEUR Current LOS: 3 Anticipated DC Date: Planned Disposition: Primary Insurance: MEDICAID [place] Discharge Planning Comments: CM met with patient at bedside after explaining CM role and obtaining verbal consent. Patient lives at home alone where he is independent with his care and plans to return there upon discharge. Patient feels this would be a safe discharge. CM discussed availability / needs of home health and medical equipment. Patient states he has Home 02 / portable 02 / nebulizer with [facility]. Patient denies any discharge needs at this time. Patient states he will have his friend drive him home upon discharge. CM will continue to follow and assist as needed with discharge planning / needs. Biodiesel Product Manager: Joanna Del Valle DCP- Discharge Planning Updated by [id number]: Joanna Del Valle on 08/04/19 6:[address] Patient having procedure / testing at bedside. CM will evaluate later.CM will continue to follow and assist as needed with discharge planning / needs DCP- Discharge Planning Updated by [id number]: Joanna Del Valle on 08/03/19 5:[address] CM attempted to get discharge planning assessment completed but patient kept falling asleep while CM getting information CM will see patient later for patient initial discharge planning assessment. CM will continue to follow and assist as needed with discharge planning / needs DCPIA - Discharge Planning Initial Assessment Updated by [id number]: Joanna Del Valle on 08/05/19 8:56 pm * Is the patient Alert and Oriented? Yes * How many steps to enter\exit or inside your home? * PCP [facility] * Pharmacy [facility] * Preadmission Environment Home Alone * ADLs Independent * Other Equipment HOME / PORTABLE 02, POWERCHAIR, LIFT CHAIR, HOSP BED, NEBULIZER * List name and contact numbers for known caregivers / representatives who currently or will assist patient after discharge: SHIRAZ DAVALOS - [phone] * Verbal permission to speak to the caregivers and representatives has been obtained from the patient. Yes * Community resources currently utilized Home Health * Please name any agencies selected above. [facility] * Additional services required to return to the preadmission environment? No * Can the patient safely return to the preadmission environment? Yes * Has this patient been hospitalized within the prior 30 days at any hospital? No External Providers External Provider: OTHER-OTHER Next Contact Date: Service Request Date: Service Type: Resolution: Reviewer: Comments: Coverage Notice Reviewer: [id number] - Joanna Eligio Notice Issued Date-Time: 08/06/2019 10:30 Notice Type: Patient Choice Letter Notice Delivered To: Patient Relationship to Patient: Self Manager Bench Name: Delivery Method: HAND - Hand Delivered Renea Days: Prior Verbal Notification: Recipient Understood Notice: Yes Recipient Signature: Yes Med Rec Note Co-signed by Attending: Coverage Notice Comment: Last DP export: 08/16/19 12:32 p Patient Name: BROOKE DAVALOS Page [id number] at 0820 All edits/amendments must be made on the electronic document DICTATION DATE: 08/17/19819 NUCLEAR PLANT EQUIPMENT OPERATOR: HIEN 08/17/19819 RPT#: [id number] DC DATE: STATUS: ADM IN [facility] [address] [place] [address] END OF REPORT
[2019-08-17 08:38] VITALS: BP 122/78
--- NOTE | 2019-08-17 12:35 | MORECARE ---
CASE MANAGEMENT DISCHARGE SUMMARY PATIENT: BROOKE DAVALOS UNIT: [id number] ADM DATE: 08/02/19 AGE: 64 : 53 SEX: M ROOM/BED: D.2234 AUTHOR: FLORY MARIA PHYSICIAN: REFERRING PHYSICIAN: BRIANNA LAFLEUR MD DATE OF SERVICE: 08/17/19 Discharge Plan Patient Name: BROOKE DAVALOS Facility: [facility]:[place] : 1955 Planned Disposition: Anticipated Discharge Date: Discharge Date: Expected LOS: Initial Reviewer: [id number] Initial Review Date: 08/03/2019 Generated: 08/17/19 1:34 pm Comments DCP- Discharge Planning Updated by [email or web address]: Unique Carrillo on 08/17/19 11:[address] I spoke with Dr. Leahy after speaking with Mckenna at [facility] in [place]. He will need a sleep study and PFT's prior to getting authorization for a BIPAP. She states he has to have a reason for failed CPAP. Dr. Leahy states he does not need a BIPAP for a discharge home. I informed Chalo Gaonater this as well. I will order RT to see what oxygen amount he needs to be on with walk test. He will also need a portable tank for discharge. He states his brother is on his way and does not have his portable oxygen. [facility] to his room for discharge. I spoke with RT and they will check his oxygen saturation with activity. CM will continue to follow and assist with discharge planning/needs. DCP- Discharge Planning Updated by [id number]: Roxanne Regalado on 08/16/19 12:[address] Patient Name: BROOKE DAVALOS Admission Status: ER Accout number: [id number] Admission Date: 08-02-2019 : 1955 Admission Diagnosis:SEPSIS, UNSPECIFIED ORGANISM Attending: BRIANNA LAFLEUR Current LOS: 14 Anticipated DC Date: Planned Disposition: Primary Insurance: MEDICAID [place] Discharge Planning Comments: PATIENT HAS 02 AND PORTABLE. ALSO HAS OTHER EQUIPMENT AT HOME. NO OTHER NEEDS. PLANS TO [facility] . CM WILL FAX DOCUMENTS TO [facility] . Model Making Supervisor: Roxanne Regalado Appended by Roxanne Regalado on 08/16/2019 13:27 PLATER SUPERVISOR: PATIENT NEEDS BIPAP PRIOR TO DC. HE USES [facility] IN [place] FOR HIS DME. I CALLED [facility] AND FAXED INFO FOR BIPAP. PHONE NUMBER [phone], FAX [phone]. THEY ARE CLOSED ON THE WEEKENDS AND BIPAP CAN NOT BE SET UP ON THE WEEKEND. I AM FAXING REFERRAL TO THEM NOW. CM TO FOLLOW AND ASSIST. DCP- Discharge Planning Updated by [email or web address]: Joanna Del Valle on 08/05/19 7:[address] Patient Name: BROOKE DAVALOS Admission Status: ER Accout number: [id number] Admission Date: 08-02-2019 : 1955 Admission Diagnosis:SEPSIS, UNSPECIFIED ORGANISM Attending: BRIANNA LAFLEUR Current LOS: 3 Anticipated DC Date: Planned Disposition: Primary Insurance: MEDICAID [place] Discharge Planning Comments: CM met with patient at bedside after explaining CM role and obtaining verbal consent. Patient lives at home alone where he is independent with his care and plans to return there upon discharge. Patient feels this would be a safe discharge. CM discussed availability / needs of home health and medical equipment. Patient states he has Home 02 / portable 02 / nebulizer with [facility]. Patient denies any discharge needs at this time. Patient states he will have his friend drive him home upon discharge. CM will continue to follow and assist as needed with discharge planning / needs. Model Making Supervisor: Joanna Del Valle DCP- Discharge Planning Updated by [email or web address]: Joanna Del Valle on 08/04/19 6:[address] Patient having procedure / testing at bedside. CM will evaluate later.CM will continue to follow and assist as needed with discharge planning / needs DCP- Discharge Planning Updated by [email or web address]: Joanna Del Valle on 08/03/19 5:[address] CM attempted to get discharge planning assessment completed but patient kept falling asleep while CM getting information CM will see patient later for patient initial discharge planning assessment. CM will continue to follow and assist as needed with discharge planning / needs DCPIA - Discharge Planning Initial Assessment Updated by [email or web address]: Joanna Del Valle on 08/05/19 8:56 pm * Is the patient Alert and Oriented? Yes * How many steps to enter\exit or inside your home? * PCP [facility] * Pharmacy [facility] * Preadmission Environment Home Alone * ADLs Independent * Other Equipment HOME / PORTABLE 02, POWERCHAIR, LIFT CHAIR, HOSP BED, NEBULIZER * List name and contact numbers for known caregivers / representatives who currently or will assist patient after discharge: [facility] [phone] * Verbal permission to speak to the caregivers and representatives has been obtained from the patient. Yes * Community resources currently utilized Home Health * Please name any agencies selected above. [facility] * Additional services required to return to the preadmission environment? No * Can the patient safely return to the preadmission environment? Yes * Has this patient been hospitalized within the prior 30 days at any hospital? No Coverage Notice Reviewer: [id number] Lindsey Del Valle Notice Issued Date-Time: 08/06/2019 10:30 Notice Type: Patient Choice Letter Notice Delivered To: Patient Relationship to Patient: Self Pilot Name: Delivery Method: HAND - Hand Delivered Renea Days: Prior Verbal Notification: Recipient Understood Notice: Yes Recipient Signature: Yes Med Rec Note Co-signed by Attending: Coverage Notice Comment: Last DP export: 08/17/19 7:20 a Patient Name: BROOKE DAVALOS Page [id number] at 1235 All edits/amendments must be made on the electronic document DICTATION DATE: 08/17/19 1234 MEDICAL RESEARCH SCIENTIST: HIEN 08/17/19 1234 RPT#: [id number] DC DATE: STATUS: ADM IN [facility] [address] [place] [address] END OF REPORT
[2019-08-17 12:48] VITALS: BP 120/77
--- NOTE | 2019-08-17 13:35 | MORECARE ---
CASE MANAGEMENT DISCHARGE SUMMARY PATIENT: BROOKE DAVALOS UNIT: [id number] ADM DATE: 08/02/19 AGE: 64 : 53 SEX: M ROOM/BED: D.2234 AUTHOR: CROWDOC PHYSICIAN: REFERRING PHYSICIAN: BRIANNA LAFLEUR MD DATE OF SERVICE: 08/17/19 Discharge Plan Patient Name: BROOKE DAVALOS Facility: [facility]:[place] : 1955 Planned Disposition: Anticipated Discharge Date: Discharge Date: Expected LOS: Initial Reviewer: [email or web address] Initial Review Date: 08/03/2019 Generated: 08/17/19 2:35 pm Comments DCP- Discharge Planning Updated by [email or web address]: Unique Carrillo on 08/17/19 12:[address] Sondra with RT states patient is 98% on 3 liters NC. Nichole informed and she has spoken to Chalo Oconnor. Chalo states ok to discharge on 3 liters NC. Home today with resumption of [facility]. DCP- Discharge Planning Updated by [email or web address]: Unique Carrillo on 08/17/19 11:[address] I spoke with Dr. Leahy after speaking with Mckenna at [facility] in [place]. He will need a sleep study and PFT's prior to getting authorization for a BIPAP. She states he has to have a reason for failed CPAP. Dr. Leahy states he does not need a BIPAP for a discharge home. I informed Chalo Oconnor this as well. I will order RT to see what oxygen amount he needs to be on with walk test. He will also need a portable tank for discharge. He states his brother is on his way and does not have his portable oxygen. [facility] and they will bring [facility] portable tank to his room for discharge. I spoke with RT and they will check his oxygen saturation with activity. CM will continue to follow and assist with discharge planning/needs. DCP- Discharge Planning Updated by [id number]: Roxanne Regalado on 08/16/19 12:[address] Patient Name: BROOKE DAVALOS Admission Status: ER Accout number: [id number] Admission Date: 08-02-2019 : 1955 Admission Diagnosis:SEPSIS, UNSPECIFIED ORGANISM Attending: BRIANNA LAFLEUR Current LOS: 14 Anticipated DC Date: Planned Disposition: Primary Insurance: [place] Discharge Planning Comments: PATIENT HAS 02 AND PORTABLE. ALSO HAS OTHER EQUIPMENT AT HOME. NO OTHER NEEDS. PLANS TO [facility]ME [facility]. CM WILL FAX DOCUMENTS TO [facility]. Keyseating Machine Set Up Operator: Roxanne Regalado Appended by Roxanne Regalado on 08/16/2019 13:27 TAG MAKER: PATIENT NEEDS BIPAP PRIOR TO DC. HE USES [facility] IN [place] FOR HIS DME. I CALLED [facility] AND FAXED INFO FOR BIPAP. PHONE NUMBER [phone], FAX [phone]. THEY ARE CLOSED ON THE WEEKENDS AND BIPAP CAN NOT BE SET UP ON THE WEEKEND. I AM FAXING REFERRAL TO THEM NOW. CM TO FOLLOW AND ASSIST. DCP- Discharge Planning Updated by [email or web address]: Joanna Del Valle on 08/05/19 7:[address] Patient Name: BROOKE DAVALOS Admission Status: ER Accout number: [id number] Admission Date: 08-02-2019 : 1955 Admission Diagnosis:SEPSIS, UNSPECIFIED ORGANISM Attending: BRIANNA LAFLEUR Current LOS: 3 Anticipated DC Date: Planned Disposition: Primary Insurance: [place] Discharge Planning Comments: CM met with patient at bedside after explaining CM role and obtaining verbal consent. Patient lives at home alone where he is independent with his care and plans to return there upon discharge. Patient feels this would be a safe discharge. CM discussed availability / needs of home health and medical equipment. Patient states he has Home 02 / portable 02 / nebulizer with [facility]. Patient denies any discharge needs at this time. Patient states he will have his friend drive him home upon discharge. CM will continue to follow and assist as needed with discharge planning / needs. Keyseating Machine Set Up Operator: Joanna Del Valle DCP- Discharge Planning Updated by [id number]: Joanna Del Valle on 08/04/19 6:[address] Patient having procedure / testing at bedside. CM will evaluate later.CM will continue to follow and assist as needed with discharge planning / needs DCP- Discharge Planning Updated by [id number]: Joanna Del Valle on 08/03/19 5:[address] CM attempted to get discharge planning assessment completed but patient kept falling asleep while CM getting information CM will see patient later for patient initial discharge planning assessment. CM will continue to follow and assist as needed with discharge planning / needs DCPIA - Discharge Planning Initial Assessment Updated by [email or web address]: Joanna Del Valle on 08/05/19 8:56 pm * Is the patient Alert and Oriented? Yes * How many steps to enter\exit or inside your home? * PCP [facility] * Pharmacy [facility] * Preadmission Environment Home Alone * ADLs Independent * Other Equipment HOME / PORTABLE 02, POWERCHAIR, LIFT CHAIR, HOSP BED, NEBULIZER * List name and contact numbers for known caregivers / representatives who currently or will assist patient after discharge: SHIRAZ DAVALOS [facility] [phone] * Verbal permission to speak to the caregivers and representatives has been obtained from the patient. Yes * Community resources currently utilized Home Health * Please name any agencies selected above. [facility] * Additional services required to return to the preadmission environment? No * Can the patient safely return to the preadmission environment? Yes * Has this patient been hospitalized within the prior 30 days at any hospital? No Coverage Notice Reviewer: [id number] - Joanna Del Vlale Notice Issued Date-Time: 08/06/2019 10:30 Notice Type: Patient Choice Letter Notice Delivered To: Patient Relationship to Patient: Self Associate Genetics Professor Name: Delivery Method: HAND - Hand Delivered Renea Days: Prior Verbal Notification: Recipient Understood Notice: Yes Recipient Signature: Yes Med Rec Note Co-signed by Attending: Coverage Notice Comment: Last DP export: 08/17/19 11:35 a Patient Name: BROOKE DAVALOS Page [phone] at 1335 All edits/amendments must be made on the electronic document DICTATION DATE: 08/17/19 1335 ORACLE ERP DEVELOPER: HIEN 08/17/19 1335 RPT#: [id number] DC DATE: STATUS: ADM IN [facility] [address] [place] [address] END OF REPORT
--- NOTE | 2019-08-17 16:13 | NUR ---
OT NOTE: PT DOING WELL; BED MOB INCLUDING ROLLING AND SUPINE TO SIT WITH SPV; FUNCTIONAL TRANSFERS WITH WALKER AND SBA. SIMPLE ADLS WITH SPV/MOD I..PT LACKS INITIATIVE TO PERFORM TASKS, HOWEVER, WILL PROBABLY DO WELL ONCE BACK IN HIS HOME SETTING. PT TO HAVE HH SERVICES UPON RETURN HOME ALSO. JESSICA BROWER, OTR/L
--- NOTE | 2019-08-18 15:51 | MORECARE ---
CASE MANAGEMENT DISCHARGE SUMMARY PATIENT: BROOKE DAVALOS UNIT: [id number] ADM DATE: 08/02/19 AGE: 64 : 51 SEX: M ROOM/BED: D.2234 AUTHOR: FLORY MARIA PHYSICIAN: REFERRING PHYSICIAN: BRIANNA LAFLEUR MD DATE OF SERVICE: 08/18/19 Discharge Plan Patient Name: BROOKE DAVALOS Facility: [facility]:[place] : 1955 Planned Disposition: Home Hlth Svc w Plan Readm Anticipated Discharge Date: Discharge Date: 08/17/2019 Expected LOS: 0 Initial Reviewer: [email or web address] Initial Review Date: 08/03/2019 Generated: 08/18/19 4:50 pm Comments DCP- Discharge Planning Updated by [email or web address]: Unique Carrillo on 08/17/19 12:[address] Sondra with RT states patient is 98% on 3 liters NC. Nichole informed and she has spoken to Chalo Oconnor. Chalo states ok to discharge on 3 liters NC. Home today with resumption of [facility]. DCP- Discharge Planning Updated by [id number]: Unique Carrillo on 08/17/19 11:[address] I spoke with Dr. Leahy after speaking with Mckenna at [facility] in [place]. He will need a sleep study and PFT's prior to getting authorization for a BIPAP. She states he has to have a reason for failed CPAP. Dr. Leahy states he does not need a BIPAP for a discharge home. I informed Chalo Oconnor this as well. I will order RT to see what oxygen amount he needs to be on with walk test. He will also need a portable tank for discharge. He states his brother is on his way and does not have his portable oxygen. [facility] to his room for discharge. I spoke with RT and they will check his oxygen saturation with activity. CM will continue to follow and assist with discharge planning/needs. DCP- Discharge Planning Updated by [email or web address]: Roxanne Regalado on 08/16/19 12:[address] Patient Name: BROOKE DAVALOS Admission Status: ER Accout number: [id number] Admission Date: 08-02-2019 : 1955 Admission Diagnosis:SEPSIS, UNSPECIFIED ORGANISM Attending: BRIANNA LAFLEUR Current LOS: 14 Anticipated DC Date: Planned Disposition: Primary Insurance: [place] Discharge Planning Comments: PATIENT HAS 02 AND PORTABLE. ALSO HAS OTHER EQUIPMENT AT HOME. NO OTHER NEEDS. PLANS TO [facility]. CM WILL FAX DOCUMENTS TO [facility]. Merchandising Execution Manager: Roxanne Regalado Appended by Roxanne Regalado on 08/16/2019 13:27 SET UP INSPECTOR: PATIENT NEEDS BIPAP PRIOR TO DC. HE USES [facility] IN [place] FOR HIS DME. I CALLED [facility] AND FAXED INFO FOR BIPAP. PHONE NUMBER [phone], FAX [phone]. THEY ARE CLOSED ON THE WEEKENDS AND BIPAP CAN NOT BE SET UP ON THE WEEKEND. I AM FAXING REFERRAL TO THEM NOW. CM TO FOLLOW AND ASSIST. DCP- Discharge Planning Updated by [email or web address]: Joanna Del Valle on 08/05/19 7:[address] Patient Name: BROOKE DAVALOS Admission Status: ER Accout number: [id number] Admission Date: 08-02-2019 : 1955 Admission Diagnosis:SEPSIS, UNSPECIFIED ORGANISM Attending: BRIANNA LAFLEUR Current LOS: 3 Anticipated DC Date: Planned Disposition: Primary Insurance: [place] Discharge Planning Comments: CM met with patient at bedside after explaining CM role and obtaining verbal consent. Patient lives at home alone where he is independent with his care and plans to return there upon discharge. Patient feels this would be a safe discharge. CM discussed availability / needs of home health and medical equipment. Patient states he has Home 02 / portable 02 / nebulizer with [facility]. Patient denies any discharge needs at this time. Patient states he will have his friend drive him home upon discharge. CM will continue to follow and assist as needed with discharge planning / needs. Merchandising Execution Manager: Joanna Del Valle DCP- Discharge Planning Updated by [email or web address]: Joanna Del Valle on 08/04/19 6:[address] Patient having procedure / testing at bedside. CM will evaluate later.CM will continue to follow and assist as needed with discharge planning / needs DCP- Discharge Planning Updated by [email or web address]: Joanna Del Valle on 08/03/19 5:[address] CM attempted to get discharge planning assessment completed but patient kept falling asleep while CM getting information CM will see patient later for patient initial discharge planning assessment. CM will continue to follow and assist as needed with discharge planning / needs DCPIA - Discharge Planning Initial Assessment Updated by [email or web address]: Joanna Eligio on 08/05/19 8:56 pm * Is the patient Alert and Oriented? Yes * How many steps to enter\exit or inside your home? * PCP [facility] * Pharmacy [facility] * Preadmission Environment Home Alone * ADLs Independent * Other Equipment HOME / PORTABLE 02, POWERCHAIR, LIFT CHAIR, HOSP BED, NEBULIZER * List name and contact numbers for known caregivers / representatives who currently or will assist patient after discharge: SHIRAZ DAVALOS - [phone] * Verbal permission to speak to the caregivers and representatives has been obtained from the patient. Yes * Community resources currently utilized Home Health * Please name any agencies selected above. [facility] * Additional services required to return to the preadmission environment? No * Can the patient safely return to the preadmission environment? Yes * Has this patient been hospitalized within the prior 30 days at any hospital? No Coverage Notice Reviewer: [email or web address] - Joannadenia Kentr Notice Issued Date-Time: 08/06/2019 10:30 Notice Type: Patient Choice Letter Notice Delivered To: Patient Relationship to Patient: Self Facs Teacher Name: Delivery Method: HAND - Hand Delivered Renea Days: Prior Verbal Notification: Recipient Understood Notice: Yes Recipient Signature: Yes Med Rec Note Co-signed by Attending: Coverage Notice Comment: Last DP export: 08/17/19 12:35 p Patient Name: BROOKE DAVALOS Page 69312 at 1551 All edits/amendments must be made on the electronic document DICTATION DATE: 08/18/191549 FIBER PICKER: HIEN 08/18/191549 RPT#: [id number] DC DATE:08/17/19 STATUS: DIS IN [facility] [address] [place] [address] END OF REPORT
== END 2019-08-17 18:39 | disposition home health service (06) | DRG 871 ==
LOC: D.ER 23:05 → D.ICU 23:40 → D.MS 08-06 14:26 → D.ICU 08-07 14:58 → D.MS 08-09 17:20
PROVIDERS: Emergency Medicine; Family Medicine; Internal Medicine Gastroenterology; Internal Medicine Pulmonary Disease; ADMIT Internal Medicine Nephrology; ATTEND Internal Medicine Nephrology
DX: A41.9 Sepsis, unspecified organism (principal); J96.01 Acute respiratory failure with hypoxia; I50.33 Acute on chronic diastolic (congestive) heart failure; G93.41 Metabolic encephalopathy; N39.0 Urinary tract infection, site not specified; N17.9 Acute kidney failure, unspecified; K80.30 Calculus of bile duct with cholangitis, unspecified, without obstruction; I48.91 Unspecified atrial fibrillation; I49.5 Sick sinus syndrome; D64.9 Anemia, unspecified; E86.0 Dehydration; K43.9 Ventral hernia without obstruction or gangrene; J44.9 Chronic obstructive pulmonary disease, unspecified; Z85.038 Personal history of other malignant neoplasm of large intestine; R00.0 Tachycardia, unspecified; E11.21 Type 2 diabetes mellitus with diabetic nephropathy; E11.42 Type 2 diabetes mellitus with diabetic polyneuropathy

== ENCOUNTER 2019-10-19 11:09 | Inpatient (IN) | payer MEDICARE, MEDICAID ==
[~2019-10-19] VITALS: Ht 180.3 cm; Wt 116.6 kg
[2019-10-19] VITALS (11 sets, daily range): BP systolic 96–112; BP diastolic 57–85; BMI 31.4
[~2019-10-19 11:09] MED LIST: ABILIFY10 MG PO; ALDACTONE25 MG PO; AMIODARONE HCL200 MG PO; ATROVENT 0.02%2.5 ML UPD; BAYER CHEWABLE81 MG PO; BROVANA15 MCG/2 M INH; BUMETANIDE0.5 MG PO; CARAFATE1 G PO; COREG6.25 MG; FLORAJEN3 CAPS460 MG PO; K-DUR20 MEQ PO; K-TAB10 MEQ PO; LEVOFLOXACIN500 MG PO; Lantus Insulin SC; NEURONTIN 300300 MG PO; PAXIL30 MG PO; PRECOSE25 MG PO; PREDNISONE10 MG PO; PULMICORT0.5 MG/21 UPD; XOPENEX 1.1.25 MG/3 UPD
[2019-10-19] MEDS ORDERED: LIPITOR20 MG PO (11:17)
[2019-10-19] MEDS ORDERED: PLAVIX75 MG PO (11:18)
[2019-10-19] MEDS ORDERED: PROSCAR5 MG PO (11:20)
[2019-10-19] MEDS ORDERED: HUMULIN R100 UNIT/1 SC (11:21)
[2019-10-19] MEDS ORDERED: LEVEMIR FL100 UNIT/1 SC (11:22)
[2019-10-19] MEDS ORDERED: MAG-OX 400 MG400 MG PO (11:24)
[2019-10-19] MEDS ORDERED: MIDODRINE HCL5 MG PO (11:25)
[2019-10-19] MEDS ORDERED: PROTONIX40 MG PO (11:26)
[2019-10-19] MEDS ORDERED: FLOMAX0.4 MG PO (11:27)
[2019-10-19 11:43] LABS: HEMATOCRIT 38.8 % (42.0-54.0); HEMOGLOBIN 11.2 g/dL (13.5-17.5); LYMPHOCYTES 8.9 % (15-50); MCH 28.7 pg (26.0-34.0); MCHC 28.9 g/dL (31.0-37.0); MCV 99.5 fL (80.0-100.0); MEAN PLATELET VOLUME 10.7 fL (7.4-10.4); NEUTROPHILS 86.6 % (40-80); PLATELET COUNT 111 10x3/uL (130-400); WBC 6.8 10x3/uL (4.8-10.8)
[2019-10-19 11:55] LABS: APTT 31.5 SECONDS (22.8-39.4); INR 1.09 (0.85-1.17); PROTIME 14.1 SECONDS (11.6-15.0)
[2019-10-19 12:12] LABS: ALBUMIN 2.9 g/dL (3.4-5.0); ALKALINE PHOSPHATASE 74 U/L (30-120); ALT (SGPT) 17 U/L (10-68); BILIRUBIN - TOTAL 0.61 mg/dL (0.2-1.3); CALCIUM 8.5 mg/dL (8.5-10.1); CHLORIDE - SERUM 103 mmol/L (98-107); CREATINE KINASE 47 UL (21-232); CREATININE - SERUM 1.2 mg/dL (0.6-1.3); POTASSIUM - SERUM 4.3 mmol/L (3.5-5.1); PROTEIN - SERUM 6.6 g/dL (6.4-8.2); SODIUM 145 mmol/L (136-145); TROPONIN-I < 0.017 ng/mL (0.000-0.060); UREA NITROGEN 16 mg/dL (7-18); eGFR NON AFRICAN AMERICAN 64 mL/min (90-120)
[2019-10-19 12:23] LABS: CALC OSMOLALITY 297 mosm/kg (275-300); GLUCOSE 242 mg/dL (74-106)
[2019-10-19 12:25] LABS: CARBON DIOXIDE 43.3 mmol/L (21.0-32.0)
--- NOTE | 2019-10-19 12:26 | NUR ---
CRITICAL LABS: CO2 43.3 AND LACTIC ACID 2.8 - DR NEGRON AWARD OF PT CONDITION.
--- NOTE | 2019-10-19 12:29 | NUR ---
TREATMENTS PRIOR TO ARRIVAL TO OUR FACILITY PER [facility]: SOLU-MEDROL 125 MG IV @ 0940 ROCEPHIN 1 GM IV @ 0945 ETOMIDATE 40 MG IV @ 0857 VECURONIUM 10 MG IV @ 0857 VERSED 5 MG IV @ 0947 KETAMINE FOR SEDATION 0.5MG/KG/HR INITIATED @ 0938 UNTIL ARRIVAL TO THIS ED.
--- NOTE | 2019-10-19 12:32 | NUR ---
PT PRESENTED TO ED VIA [facility]. HE WAS TRANSFERRED FOR A HIGHER LEVEL OF CARE FROM A HOSPITAL IN [place]. HE IS A RESIDENT OF A LTC FACILITY AND NO FAMILY IS PRESENT AT HIS BEDSIDE. ON ARRIVAL TO ED PATIENT WAS INTUBATED WITH A 7.5 TUBE 22.5 AT THE LIP WITH AN OG TO INTERMITTANT SUCTION. PT HAS A 16FR GEORGE CATHETER WITH GROSS AMOUNT OF BLOOD PRESENT IN BAG. PT ALSO HAS A SMALL AMOUNT OF ACTIVE BLEEDING (BRIGHT RED BLOOD) AT THE CATHETER INSERTION SITE OF THE PENIS. THE CATHETER WAS NOT SECURED TO THE LEG WITH A STAT LOCK UPON ARRIVAL TO ED. THIS NURSE CLEANED EFFECTED AREA AND SECURED CATHETER USING ASEPTIC TECHNIQUE.
--- NOTE | 2019-10-19 13:23 | MORECARE ---
CASE MANAGEMENT DISCHARGE SUMMARY PATIENT: BROOKE DAVALOS UNIT: [id number] ADM DATE: 10/19/19 AGE: 64 : 53 SEX: M ROOM/BED: [facility] AUTHOR: FLORY MARIA PHYSICIAN: REFERRING PHYSICIAN: MONTANA DOZIER MD DATE OF SERVICE: 10/19/19 Discharge Plan Patient Name: BROOKE DAVALOS [facility] [facility] 1955 Planned Disposition: SNF w Planned Readmission Anticipated Discharge Date: 10/23/19 Discharge Date: Expected LOS: 4 Initial Reviewer: [email or web address] Initial Review Date: 10/19/2019 Generated: 10/19/19 2:22 pm Patient Name: BROOKE DAVALOS Page [phone] at 1323 All edits/amendments must be made on the electronic document DICTATION DATE: 10/19/19 1322 PAPERBOARD BOX MAKER: HIEN 10/19/19 1322 RPT#: [id number] DC DATE: STATUS: ADM IN [facility] [address] [place] [address] END OF REPORT
--- NOTE | 2019-10-19 13:31 | MORECARE ---
CASE MANAGEMENT DISCHARGE SUMMARY PATIENT: BROOKE DAVALOS UNIT: [id number] ADM DATE: 10/19/19 AGE: 64 : 51 SEX: M ROOM[facility]BED: [facility] AUTHOR: CROW,DOC PHYSICIAN: REFERRING PHYSICIAN: MONTANA DOZIER MD DATE OF SERVICE: 10/19/19 Discharge Plan Patient Name: BROOKE DAVALOS Facility: [facility]:[place] : 1955 Planned Disposition: SNF w Planned Readmission Anticipated Discharge Date: 10/23/19 Discharge Date: Expected LOS: 4 Initial Reviewer: [email or web address] Initial Review Date: 10/19/2019 Generated: 10/19/19 2:31 pm DCP- Discharge Planning Updated by [email or web address]: Ericka Basurto on 10/19/19 12:[address] DC PLAN: Resident at [facility] ANTICIPATED DC NEEDS: Transportation back to [place]. CM met with patient who is intubated and unable to answer questions. CM noted on his chart [facility] CM called [facility], spoke to Ligia SANCHEZ, who reported the patient is a resident at their facility. He is usually Alert and Oriented x 3. He is wheelchair bound. He uses O2 2L at all times. At discharge patient will return to [facility]. CM will continue to follow and will assist as needed with dc plans/needs. Ericka Basurto RN, [facility] DCPIA - Discharge Planning Initial Assessment Updated by [id number]: Ericka Basurto on 10/19/19 1:23 pm * Is the patient Alert and Oriented? Yes * How many steps to enter\exit or inside your home? None * PCP Dr. Hussein Perry * Pharmacy [facility] * Preadmission Environment [facility] * Facility Name [facility] - Resident there. * ADLs Partial Dependent * Partial ADLs (Assistance needed) Ambulation Medication Management Transfers * Equipment Oxygen Wheelchair * List name and contact numbers for known caregivers / representatives who currently or will assist patient after discharge: Eladio Pedroza - js [phone] Reena Pedroza - js [phone] * Verbal permission to speak to the caregivers and representatives has been obtained from the patient. Yes * Community resources currently utilized None * Additional services required to return to the preadmission environment? No * Can the patient safely return to the preadmission environment? Yes * Has this patient been hospitalized within the prior 30 days at any hospital? No Last DP export: 10/19/19 12:23 pm Patient Name: BROOKE DAVALOS Page 35612 at 1331 All edits/amendments must be made on the electronic document DICTATION DATE: 10/19/19 133 MANAGER CHINA: HIEN 10/19/19 1331 RPT#: [id number] DC DATE: STATUS: ADM IN [facility] [address] [place] [address] END OF REPORT
[2019-10-19 16:07] LABS: BILIRUBIN NEGATIVE (NEGATIVE); GLUCOSE 500 mg/dL (NEGATIVE); KETONE NEGATIVE (NEGATIVE); NITRITE NEGATIVE (NEGATIVE); UROBILINOGEN NORMAL (NORMAL)
[2019-10-19 16:08] LABS: RED CELLS - URINE >50 /hpf (0-5)
[2019-10-19 16:10] LABS: BACTERIA FEW /hpf (NEGATIVE)
[2019-10-19 16:11] LABS: YEAST <1+ /hpf (NONE SEEN)
--- NOTE | 2019-10-19 19:15 | NUR ---
SHIFT ASSESSMENT COMPLETE. PATIENT IS IN STABLE CONDITION NO DISTRESS NOTED AT THIS TIME.
--- NOTE | 2019-10-19 21:00 | NUR ---
PATIENT REPOSITIONED FOR COMFORT. NO DISTRESS NOTED. GEORGE INTACT AND PATENT. WILL CONTINUE TO MONITOR PATIENT. CALL LIGHT WITHIN REACH, BED IN LOW POSITION.
--- NOTE | 2019-10-19 23:00 | NUR ---
REASSESSMENT COMPLETE WITH NO CHANGES IN CONDITION. PATIENT IS AWAKE AND FOLLOWS COMMANDS. CALL LIGHT WITHIN REACH, BED IN LOW POSITION. WILL CONTINUE TO MONITOR.
[2019-10-20] VITALS (18 sets, daily range): BP systolic 94–131; BP diastolic 61–82; Ht 180.3 cm; Wt 116.6 kg
--- NOTE | 2019-10-20 01:40 | NUR ---
PATIENT IS RESTING QUIELTY AT THIS TIME WITH EYES CLOSED. WILL CONTINUE TO MONITOR PATIENT.
--- NOTE | 2019-10-20 03:00 | NUR ---
REASSESSMENT COMPLETE NO CHANGES IN CONDITION. WILL CONTINUE TO MONITOR.
--- NOTE | 2019-10-20 04:33 | NUR ---
INCREASED FIO2 TO 60% PER ABG
--- NOTE | 2019-10-20 04:35 | NUR ---
FOUND L AC IV PULLED OUT AND LAYING ON BED WITH BP CUFF SLID DOWN ARM. SITE WITHOUT REDNESS OR EDEMA NOTED. R AC SWOLLEN WITH NO REDNESS NOTED. UNABLE TO GET BLOOD RETURN FROM R AC. RESTARTING IV.
[2019-10-20 05:24] LABS: ALBUMIN 2.5 g/dL (3.4-5.0); ANION GAP 5.6 mmol/L (8-16); BILIRUBIN - TOTAL 0.52 mg/dL (0.2-1.3); CALCIUM 8.3 mg/dL (8.5-10.1); CARBON DIOXIDE 39.3 mmol/L (21.0-32.0); CREATININE - SERUM 1.2 mg/dL (0.6-1.3); MAGNESIUM - SERUM 1.8 mg/dL (1.8-2.4); PHOSPHOROUS 2.5 mg/dL (2.5-4.9); POTASSIUM - SERUM 3.9 mmol/L (3.5-5.1); PROTEIN - SERUM 5.9 g/dL (6.4-8.2)
[2019-10-20 05:36] LABS: BASOPHILS 0 % (0-2); EOSINOPHILS 0 % (0-7); HEMATOCRIT 35.9 % (42.0-54.0); HEMOGLOBIN 10.5 g/dL (13.5-17.5); IMMATURE GRANULOCYTES 0.2 % (0-5); LYMPHOCYTES 9.7 % (15-50); MCH 28.2 pg (26.0-34.0); MCHC 29.2 g/dL (31.0-37.0); MEAN PLATELET VOLUME 10.8 fL (7.4-10.4); MONOCYTES 3.8 % (2-11); NEUTROPHILS 86.3 % (40-80); PLATELET COUNT 100 10x3/uL (130-400); RBC 3.72 10x6/uL (4.20-6.10); RDW 15.7 % (11.5-14.5); WBC 5.6 10x3/uL (4.8-10.8)
[2019-10-20 05:39] LABS: MCV 96.5 fL (80.0-100.0)
--- NOTE | 2019-10-20 06:24 | NUR ---
UNABLE TO GET IV AFTER MULTIPLE STICKS.
--- NOTE | 2019-10-20 19:00 | NUR ---
SHIFT ASSESSMENT COMPLETED. PT CARE ASSUMED, MONITORS ON AND WORKING, VITALS STABLE, SEE FLOW SHEET FOR FURTHER DETAILS. WILL CONTINUE TO OBSERVE.
--- NOTE | 2019-10-20 21:00 | NUR ---
PT TURNED AND REPOSITIONED FOR COMFORT, MONITORS ON AND WORKING, VITALS STABLE.
--- NOTE | 2019-10-20 23:00 | NUR ---
NO CHNAGES, SEE FLOW SHEET FOR FURTHER DETAILS, MONITORS ON AND WORKING, VITALS STABLE, WILL CONTINUE TO OBSERVE.
[2019-10-21] VITALS (19 sets, daily range): BP systolic 93–149; BP diastolic 58–85
--- NOTE | 2019-10-21 01:00 | NUR ---
PT TURNED AND REPOSITIONED FOR COMFORT, MONITORS ON AND WORKING, VITALS STABLE, WILL CONTINUE TO OBSERVE.
--- NOTE | 2019-10-21 03:00 | NUR ---
NO CHANGES, SEE FLOW SHEET FOR FURTHER DETAILS. WILL CONTINE TO OBSERVE.
--- NOTE | 2019-10-21 05:00 | NUR ---
CHG BATH AND COMPLETE LINEN CHANGE DONE AT THIS TIME, MONITORS ON AND WORKING, VITALS STABLE, CALL LIGHT WITHIN REACH, WILL CONTINUE TO OBSERVE.
[2019-10-21 05:27] LABS: BASOPHILS 0 % (0-2); EOSINOPHILS 0 % (0-7); HEMATOCRIT 35.3 % (42.0-54.0); HEMOGLOBIN 10.5 g/dL (13.5-17.5); IMMATURE GRANULOCYTES 0.3 % (0-5); MCHC 29.7 g/dL (31.0-37.0); MEAN PLATELET VOLUME 10.6 fL (7.4-10.4); MONOCYTES 5.3 % (2-11); NEUTROPHILS 85.4 % (40-80); PLATELET COUNT 112 10x3/uL (130-400); RBC 3.75 10x6/uL (4.20-6.10); RDW 16.1 % (11.5-14.5); WBC 6.1 10x3/uL (4.8-10.8)
[2019-10-21 05:32] LABS: MCV 94.1 fL (80.0-100.0)
[2019-10-21 05:35] LABS: ALBUMIN 2.2 g/dL (3.4-5.0); ALKALINE PHOSPHATASE 56 U/L (30-120); ALT (SGPT) 15 U/L (10-68); BILIRUBIN - TOTAL 0.55 mg/dL (0.2-1.3); CALC OSMOLALITY 302 mosm/kg (275-300); CALCIUM 7.9 mg/dL (8.5-10.1); CARBON DIOXIDE 36.9 mmol/L (21.0-32.0); CHLORIDE - SERUM 104 mmol/L (98-107); GLUCOSE 276 mg/dL (74-106); POTASSIUM - SERUM 4.1 mmol/L (3.5-5.1); PROTEIN - SERUM 5.5 g/dL (6.4-8.2); SODIUM 143 mmol/L (136-145); eGFR NON AFRICAN AMERICAN 79 mL/min (90-120)
[2019-10-21 05:36] LABS: UREA NITROGEN 34 mg/dL (7-18)
--- NOTE | 2019-10-21 12:48 | NUR ---
Nutrition Follow-up: Noted Pulmocare started; receiving at 20 mL/hr at time of visit this AM with tolerance. Diet: Pulmocare goal rate 45 mL/hr Wt: 224.8# (10/20) Last BM: 10/20 per chart Labs noted: Glu 276, Ca 7.9, Alb 2.2 Meds noted: Solumedrol, Humalog, NS @ 75 -TF managed by MD; advance as tolerated per order. -Monitor wt. -RD following.
[2019-10-21 15:40] LABS: TROPONIN-I 0.03 ng/mL (0.000-0.060)
--- NOTE | 2019-10-21 19:00 | NUR ---
BEDSIDE REPORT AND SHIFT ASSESSMENT COMPLETE, SEE FLOWSHEET. VSS, NO SIGNS OF DISTRESS NOTED. PT SEDATED, FOLLOWS COMMANDS. ORAL CARE AND SUCTIONING COMPLETE, TUBE FEED SUCTIONED FROM ETT. TUBE FEEDS TURNED OFF AND OGT TO LIS. 350 RESIDUAL IN SUCTION CANISTER. L UPPER ARM MIDLINE PATENT, SEE IV FLOWSHEET. BILAT WRIST RESTRAINTS IN PLACE, SKIN WNL. ABD FIRM, DISTENDED. LLQ COLOSTOMY IN PLACE, SITE SOFT AND BULGING AROUND DRESSING. L AC PIV SALINE LOCKED. WILL MONITOR.
--- NOTE | 2019-10-21 21:00 | NUR ---
VSS, NO SIGNS OF DISTRESS NOTED. PT SEDATED, FOLLOWS COMMANDS AND OPENS EYES.
--- NOTE | 2019-10-21 23:00 | NUR ---
REASSESSMENT COMPLETE, SEE FLOWSHEET. ORAL CARE COMPLETE.
[2019-10-21 23:54] LABS: MAGNESIUM - SERUM 2.1 mg/dL (1.8-2.4); POTASSIUM - SERUM 3.8 mmol/L (3.5-5.1)
[2019-10-22] VITALS (22 sets, daily range): BP systolic 92–186; BP diastolic 53–161
--- NOTE | 2019-10-22 03:00 | NUR ---
REASSESSMENT COMPLETE, SEE FLOWSHEET.
[2019-10-22 06:03] LABS: BASOPHILS 0 % (0-2); EOSINOPHILS 0 % (0-7); HEMATOCRIT 39.9 % (42.0-54.0); HEMOGLOBIN 12.2 g/dL (13.5-17.5); IMMATURE GRANULOCYTES 0.1 % (0-5); LYMPHOCYTES 8.5 % (15-50); MCH 28.8 pg (26.0-34.0); MCHC 30.6 g/dL (31.0-37.0); MCV 94.3 fL (80.0-100.0); MEAN PLATELET VOLUME 11.1 fL (7.4-10.4); NEUTROPHILS 82.4 % (40-80); PLATELET COUNT 131 10x3/uL (130-400); RBC 4.23 10x6/uL (4.20-6.10); RDW 16.1 % (11.5-14.5)
[2019-10-22 06:23] LABS: ALBUMIN 2.6 g/dL (3.4-5.0); ANION GAP 8.5 mmol/L (8-16); BILIRUBIN - TOTAL 0.56 mg/dL (0.2-1.3); CALCIUM 8.1 mg/dL (8.5-10.1); CARBON DIOXIDE 35.9 mmol/L (21.0-32.0); CREATININE - SERUM 1.1 mg/dL (0.6-1.3); MAGNESIUM - SERUM 2.3 mg/dL (1.8-2.4); PHOSPHOROUS 2.9 mg/dL (2.5-4.9); POTASSIUM - SERUM 3.4 mmol/L (3.5-5.1); PROTEIN - SERUM 6.1 g/dL (6.4-8.2)
[2019-10-22 06:30] LABS: WBC 8.1 10x3/uL (4.8-10.8)
--- NOTE | 2019-10-22 07:00 | NUR ---
PT REPORT RECEIVED FROM TERRITORY DEVELOPMENT MANAGER NURSE. NO ACUTE SIGNS OF DISTRESS NOTED. SHIFT ASSESSMENT COMPLETED. WILL CONTINUE TO MONITOR
--- NOTE | 2019-10-22 09:54 | NUR ---
paged dr becerril. did not give me any orders on the patient.
--- NOTE | 2019-10-22 11:00 | NUR ---
PT RESTING IN BED. NO ACUTE SIGNS OF DISTRESS NOTED. REASSESSMENT COMPLETED. WILL CONTINUE TO MONITOR
--- NOTE | 2019-10-22 13:44 | NUR ---
patient turned. versed given for comfort. patient banging hand against side rail. asked if he was in pain and shook head no.
--- NOTE | 2019-10-22 15:00 | NUR ---
spoke with dr dorado about the amioderone everyone keeps talking about the patient is on but no orders nor patient notes have shown that. and he said to hold. the patient's hr fluctuates anywhere from 47-183. a-fib and sometimes sinus. st nance said to not give amioderone and just to let it flucuate.
--- NOTE | 2019-10-22 17:34 | NUR ---
PT RESTING IN BED. CHG BATH GIVEN. PT TOLERATED WELL. WILL CONTINUE TO MONITOR
[2019-10-23] VITALS (24 sets, daily range): BP systolic 85–182; BP diastolic 58–134
[2019-10-23 04:52] LABS: BASOPHILS 0 % (0-2); EOSINOPHILS 0 % (0-7); HEMOGLOBIN 12.8 g/dL (13.5-17.5); IMMATURE GRANULOCYTES 0.2 % (0-5); LYMPHOCYTES 3.1 % (15-50); MCH 28.3 pg (26.0-34.0); MCHC 29.8 g/dL (31.0-37.0); MCV 95.1 fL (80.0-100.0); MEAN PLATELET VOLUME 10.8 fL (7.4-10.4); MONOCYTES 4.9 % (2-11); NEUTROPHILS 91.8 % (40-80); PLATELET COUNT 148 10x3/uL (130-400); RBC 4.52 10x6/uL (4.20-6.10); RDW 15.9 % (11.5-14.5)
[2019-10-23 05:14] LABS: ALBUMIN 2.6 g/dL (3.4-5.0); ALKALINE PHOSPHATASE 65 U/L (30-120); ALT (SGPT) 19 U/L (10-68); BILIRUBIN - TOTAL 0.89 mg/dL (0.2-1.3); CALC OSMOLALITY 300 mosm/kg (275-300); CALCIUM 7.9 mg/dL (8.5-10.1); CARBON DIOXIDE 33.3 mmol/L (21.0-32.0); CHLORIDE - SERUM 107 mmol/L (98-107); CREATININE - SERUM 0.9 mg/dL (0.6-1.3); GLUCOSE 231 mg/dL (74-106); POTASSIUM - SERUM 4.1 mmol/L (3.5-5.1); PROTEIN - SERUM 6.5 g/dL (6.4-8.2); SODIUM 145 mmol/L (136-145); UREA NITROGEN 27 mg/dL (7-18); VANCOMYCIN - TROUGH 30.3 ug/mL (10.0-20.0); eGFR NON AFRICAN AMERICAN 90 mL/min (90-120)
--- NOTE | 2019-10-23 07:30 | NUR ---
REPORT RECEIVED. PT ON VENT. SETTINGS PER RT. OGT. PT HAS LEFT MIDLINE WITH FENTANYL AND NS INFUSING. PT HAS SKIN TEAR TO LEFT ARM. PT HAS GEORGE AND HAS A COLOSTOMY. BLOOD ON LINENS FROM SKIN TEAR ON LEFT ELBOW. LINENS CHANGED WITH NIGHTSHIFT RNJAVI. PT HR AND BP ELEVATED. WILL CONTINUE TO MONITOR.
--- NOTE | 2019-10-23 08:06 | NUR ---
WAS CALLED BY DR FUNES WHO SAID WITH AM CHEST XRAY THAT ENTERIC TUBE IS IN LEFT BRONCHUS. WILL REMOVE.
--- NOTE | 2019-10-23 08:22 | NUR ---
REMOVED OGT. PAGED DR CARTY. TUBE WAS DROPPED YESTERDAY AFTERNOON AROUND 1300 PER ELIUD PUENTE. TUBE FEEDS WERE NOT STARTED AT THAT TIME. PT WAS HOOKED UP TO SUCTION PER CINDI.
--- NOTE | 2019-10-23 09:30 | NUR ---
NEW OGT DROPPED, PER DR CARTY ORDER. XR VERIFIED TUBE PLACEMENT. AIR EASILY PUSHED THROUGH TUBE. SOME DIFFICULTY WITH WATER. PT HAS ELEVATED BP AND HR AND PT IS VISIBLY AGITATED. VERSED GIVEN AND NOT HELPING MUCH. PROPOFOL STARTED BACK PER ORDER FOR SEDATION. HR DOWN TO 92 AND BP WNL. WILL CONTINUE TO MONITOR.
--- NOTE | 2019-10-23 09:45 | NUR ---
Nutrition follow-up: NPO OGT out 2/[address] Labs reviewed Wt: 231# When OGT replaced would restart Pulmocare @ 45 ml/hr RDN following.
--- NOTE | 2019-10-23 11:30 | NUR ---
PT REPOSITIONED. VSS. WILL CONTINUE TO MONITOR.
--- NOTE | 2019-10-23 14:25 | NUR ---
TUBE FEED STARTED BACK PER DR CARTY AND PER CORRECT PLACEMENT OF OGT. WILL MONITOR.
--- NOTE | 2019-10-23 15:12 | NUR ---
CHANGE O2 TO 45% PER DR CARTY ORDER
--- NOTE | 2019-10-23 17:15 | NUR ---
PT REPOSITIONED. VSS. WILL CONTINUE TO MONITOR.
[2019-10-24] VITALS (23 sets, daily range): BP systolic 90–147; BP diastolic 60–106
[2019-10-24 04:12] LABS: BASOPHILS 0 % (0-2); EOSINOPHILS 0.1 % (0-7); HEMATOCRIT 36.1 % (42.0-54.0); HEMOGLOBIN 10.8 g/dL (13.5-17.5); IMMATURE GRANULOCYTES 0.3 % (0-5); LYMPHOCYTES 4.7 % (15-50); MCH 28.1 pg (26.0-34.0); MCHC 29.9 g/dL (31.0-37.0); MEAN PLATELET VOLUME 10.8 fL (7.4-10.4); MONOCYTES 4.7 % (2-11); NEUTROPHILS 90.2 % (40-80); RBC 3.84 10x6/uL (4.20-6.10); RDW 15.8 % (11.5-14.5)
[2019-10-24 04:16] LABS: PLATELET COUNT 107 10x3/uL (130-400)
[2019-10-24 04:33] LABS: ALKALINE PHOSPHATASE 47 U/L (30-120); BILIRUBIN - TOTAL 0.47 mg/dL (0.2-1.3); CALC OSMOLALITY 301 mosm/kg (275-300); CALCIUM 7.4 mg/dL (8.5-10.1); CARBON DIOXIDE 33.7 mmol/L (21.0-32.0); CHLORIDE - SERUM 109 mmol/L (98-107); CREATININE - SERUM 0.8 mg/dL (0.6-1.3); GLUCOSE 229 mg/dL (74-106); POTASSIUM - SERUM 4.1 mmol/L (3.5-5.1); SODIUM 145 mmol/L (136-145); UREA NITROGEN 30 mg/dL (7-18); VANCOMYCIN - RANDOM 17.4 ug/mL (10.0-20.0); eGFR NON AFRICAN AMERICAN > 90 mL/min (90-120)
[2019-10-24 04:37] LABS: ALBUMIN 1.9 g/dL (3.4-5.0); ALT (SGPT) 13 U/L (10-68)
--- NOTE | 2019-10-24 07:15 | NUR ---
REPORT RECEIVED. PT ON VENT, PER RT SETTINGS. OGT WITH PULMOCARE AT 20ML/HR. PT HAS A COLOSTOMY AND A GEORGE. VSS. LEFT UPPER ARM MIDLINE WITH PROPOFOL AND NS INFUSING. WILL CONTINUE TO MONITOR.
--- NOTE | 2019-10-24 09:30 | NUR ---
REPOSITIONED AND SUCTIONED. VSS. WILL CONTINUE TO MONITOR.
--- NOTE | 2019-10-24 11:55 | NUR ---
DR CARTY AND DR DOZIER ROUNDING ON PT. WILL CONTINUE TO MONITOR.
--- NOTE | 2019-10-24 13:17 | NUR ---
SPOKE WITH [facility] ([facility]) ABOUT TRYING TO FIND PT'S NEXT OF KIN FOR CONSENT FOR BRONCHOSCOPY. STATED THAT PT HAS NO POA OR NEXT OF KIN. ONLY A FRIEND AN EMERGENCY CONTACT.
--- NOTE | 2019-10-24 15:07 | NUR ---
BRONCHOSCOPY DONE BY DR CARTY. VSS.
--- NOTE | 2019-10-24 16:40 | NUR ---
CHG BATH GIVEN. I AND OS DONE.
[2019-10-25] VITALS (22 sets, daily range): BP systolic 89–145; BP diastolic 36–89
--- NOTE | 2019-10-25 07:20 | NUR ---
SHIFT REPORT RECEIVED. PT SEDATED, ON VENT. A/C, TV 500, R 14, FI02 60% PEEP 8. ETT 7.5 24 AT LIP MIDLINE. OGT TUBE IN PLACE. AWAITING KUB TO VERIFY TUBE PLACEMENT. PULMOCARE ON HOLD AT THIS TIME. HAS ABI MIDLINE WITH NS AT 50ML/HR, AND PROPOFOL AT 40MCG/KG/MIN. COLOSTOMY NOTED TO LUQ. GEORGE IN PLACE WITH DON URINE NOTED. SAFTETY MEASURES IN PLACE. SEE FLOWSHEET FOR COMPLETE ASSESSMENT. WILL CONTINUE TO MONITOR.
[2019-10-25 08:06] LABS: BASOPHILS 0 % (0-2); EOSINOPHILS 0.7 % (0-7); HEMATOCRIT 35.4 % (42.0-54.0); HEMOGLOBIN 10.8 g/dL (13.5-17.5); IMMATURE GRANULOCYTES 0.3 % (0-5); LYMPHOCYTES 4.5 % (15-50); MCH 28.2 pg (26.0-34.0); MCHC 30.5 g/dL (31.0-37.0); MCV 92.4 fL (80.0-100.0); MEAN PLATELET VOLUME 11.3 fL (7.4-10.4); MONOCYTES 4.4 % (2-11); NEUTROPHILS 90.1 % (40-80); PLATELET COUNT 119 10x3/uL (130-400); RBC 3.83 10x6/uL (4.20-6.10); RDW 15.8 % (11.5-14.5); WBC 10.8 10x3/uL (4.8-10.8)
[2019-10-25 08:42] LABS: ALBUMIN 1.8 g/dL (3.4-5.0); ALKALINE PHOSPHATASE 54 U/L (30-120); BILIRUBIN - TOTAL 0.38 mg/dL (0.2-1.3); CALC OSMOLALITY 301 mosm/kg (275-300); CALCIUM 7.2 mg/dL (8.5-10.1); CARBON DIOXIDE 32.5 mmol/L (21.0-32.0); CHLORIDE - SERUM 108 mmol/L (98-107); CREATININE - SERUM 0.8 mg/dL (0.6-1.3); GLUCOSE 238 mg/dL (74-106); POTASSIUM - SERUM 3.6 mmol/L (3.5-5.1); PROTEIN - SERUM 4.6 g/dL (6.4-8.2); SODIUM 145 mmol/L (136-145); UREA NITROGEN 26 mg/dL (7-18); eGFR NON AFRICAN AMERICAN > 90 mL/min (90-120)
--- NOTE | 2019-10-25 08:42 | NUR ---
OGT TUBE IN CORRECT PLACEMENT PER KUB. PULMOCARE RESUMED AT 20ML/HR.
[2019-10-25 08:43] LABS: ALT (SGPT) 17 U/L (10-68)
--- NOTE | 2019-10-25 09:30 | NUR ---
RESTING COMFORTABLY. REPOSITIONED FOR COMFORT. WILL CONTINUE TO MONITOR.
--- NOTE | 2019-10-25 17:30 | NUR ---
CHG BATH GIVEN. COMPLETE LINEN CHANGE PROVIDED. COLOSTOMY BAG EMPTIED. MODERATE AMOUNT OF FORMED BROWN STOOL NOTED. WILL CONTINUE TO MONITOR.
[2019-10-26] VITALS (23 sets, daily range): BP systolic 92–138; BP diastolic 62–104
[2019-10-26 05:08] LABS: BASOPHILS 0.1 % (0-2); EOSINOPHILS 0 % (0-7); HEMATOCRIT 37.6 % (42.0-54.0); HEMOGLOBIN 11.6 g/dL (13.5-17.5); IMMATURE GRANULOCYTES 0.3 % (0-5); LYMPHOCYTES 3.2 % (15-50); MCH 28.2 pg (26.0-34.0); MCHC 30.9 g/dL (31.0-37.0); MCV 91.5 fL (80.0-100.0); MEAN PLATELET VOLUME 11.1 fL (7.4-10.4); MONOCYTES 3.8 % (2-11); NEUTROPHILS 92.6 % (40-80); PLATELET COUNT 133 10x3/uL (130-400); RBC 4.11 10x6/uL (4.20-6.10); RDW 15.8 % (11.5-14.5); WBC 11.1 10x3/uL (4.8-10.8)
[2019-10-26 06:01] LABS: ALBUMIN 1.8 g/dL (3.4-5.0); ALKALINE PHOSPHATASE 67 U/L (30-120); ALT (SGPT) 19 U/L (10-68); BILIRUBIN - TOTAL 0.51 mg/dL (0.2-1.3); CALC OSMOLALITY 296 mosm/kg (275-300); CALCIUM 7.4 mg/dL (8.5-10.1); CARBON DIOXIDE 31.8 mmol/L (21.0-32.0); CHLORIDE - SERUM 105 mmol/L (98-107); GLUCOSE 264 mg/dL (74-106); POTASSIUM - SERUM 3.9 mmol/L (3.5-5.1); PROTEIN - SERUM 5.6 g/dL (6.4-8.2); SODIUM 142 mmol/L (136-145); UREA NITROGEN 27 mg/dL (7-18); eGFR NON AFRICAN AMERICAN 79 mL/min (90-120)
--- NOTE | 2019-10-26 09:33 | NUR ---
Nutrition follow-up: Intubated, sedated Pulmocare @ 20 ml/hr; goal rate of 45 ml/hr Labs reviewed Wt: 254# RDN following.
--- NOTE | 2019-10-26 10:32 | NUR ---
RESIDUAL 0 AT THIS TIME. PULMOCARE INCREASED TO 45CC/HR.
--- NOTE | 2019-10-26 12:09 | EC ---
PATIENT:BROOKE DAVALOS DATE OF SERVICE: 10/19/19 SEX: M MEDICAL RECORD: [id number] DATE OF : [birth year] LOCATION:[facility] D230 AGE OF PATIENT: 64 ADMISSION DATE: 10/19/19 REFERRING PHYSICIAN: INTERPRETING PHYSICIAN: ASHLEE SMITH MD ECHOCARDIOGRAM REPORT ECHO CHARGES 4 ECHO COMPLETE Date: 10/22/19 CLINICAL DIAGNOSIS: EDEMA WITH CARDIOVASCULAR INSULT... ECHOCARDIOGRAPHIC MEASUREMENTS (adult normal given) AC root (d.<3.7cm) 5.5 cm LV Septum d (<1.2 cm> 1.9 cm Valve Excursion 2.0 cm LV Septum (systole) 2.1 cm Left Atria (s.<4.0cm> 4.3 cm LVPW d(<1.2cm) 2.2 cm RV (d.<2.3cm) 5.5 cm LVPW (sytole) 2.3 cm LV diastole(<5.6CM) 5.4 cm MV E-F(>70mm/sec) cm LV systole 4.3 cm LVOT Diameter 2.9 cm MV exc.(>10mm) cm Est.ejection fraction (50-75%) % DOPPLER: LVIT cm/sec A 34.0 cm/sec E 38.0 cm/sec LA cm/sec RVSP 59 mmHg LVOT 77 cm/sec AOP1/2T m/s Asc. 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 Smith TAPE# PACS Pericardial Effusion N DATE OF SERVICE: Echocardiogram FINDINGS: 1. Left ventricular chamber size is within normal limits. Left ventricular systolic function is mildly reduced at 40% to 45%. 2. Left atrium is enlarged at 4.3 cm. Right atrium and right ventricular chamber sizes are as well mildly dilated. 3. Valvular structures have normal structure and motion. ECHOCARDIOGRAM REPORT [id number] BROOKE DAVALOS 4. Doppler interrogation reveals mild mitral regurgitation, mild tricuspid regurgitation, no other valvular insufficiency or stenosis. Pulmonary systolic pressure is elevated at 59 mmHg. 5. No evidence of pericardial effusion or left ventricular thrombus. TRANSINT:[id number] Voice Confirmation ID: [id number] DOCUMENT ID: [id number] ASHLEE SMITH MD at 1209 CC: [id number] DICTATION DATE: 10/22/19 1513 AREA DIRECTOR: 10/22/19 1548 ADM IN [place] [id number] [place] [address]
[2019-10-27] VITALS (24 sets, daily range): BP systolic 91–182; BP diastolic 59–143
[2019-10-27 04:23] LABS: BASOPHILS 0 % (0-2); EOSINOPHILS 0 % (0-7); HEMATOCRIT 37.4 % (42.0-54.0); HEMOGLOBIN 11.7 g/dL (13.5-17.5); IMMATURE GRANULOCYTES 0.5 % (0-5); LYMPHOCYTES 5.3 % (15-50); MCH 28.5 pg (26.0-34.0); MCHC 31.3 g/dL (31.0-37.0); MEAN PLATELET VOLUME 11.4 fL (7.4-10.4); MONOCYTES 3.5 % (2-11); NEUTROPHILS 90.7 % (40-80); PLATELET COUNT 156 10x3/uL (130-400); RBC 4.11 10x6/uL (4.20-6.10); RDW 15.7 % (11.5-14.5)
[2019-10-27 04:44] LABS: WBC 7.8 10x3/uL (4.8-10.8)
[2019-10-27 04:57] LABS: ALBUMIN 1.9 g/dL (3.4-5.0); ALKALINE PHOSPHATASE 63 U/L (30-120); ALT (SGPT) 19 U/L (10-68); BILIRUBIN - TOTAL 0.31 mg/dL (0.2-1.3); CALC OSMOLALITY 296 mosm/kg (275-300); CALCIUM 7.6 mg/dL (8.5-10.1); CARBON DIOXIDE 31.1 mmol/L (21.0-32.0); CHLORIDE - SERUM 104 mmol/L (98-107); GLUCOSE 308 mg/dL (74-106); POTASSIUM - SERUM 4.3 mmol/L (3.5-5.1); PROTEIN - SERUM 5.6 g/dL (6.4-8.2); SODIUM 140 mmol/L (136-145); UREA NITROGEN 28 mg/dL (7-18); eGFR NON AFRICAN AMERICAN 79 mL/min (90-120)
--- NOTE | 2019-10-27 07:45 | NUR ---
patient report received. patient is sedated on propofol at 45 mcg. titrating off for sedation vacation. no acute distress. will assess neuro status when awake. colostomy bag on l side. lungs cta on vent. patient alternates between a fib and jaz. pupils are round and reactive to light. camejo at bedside. abdomen soft and round. tube feedings at 45 goal of pulmocare. warm dry skin. red butt with mepilex.
--- NOTE | 2019-10-27 09:59 | NUR ---
dr powers at bedside. new orders given
--- NOTE | 2019-10-27 11:10 | NUR ---
gave report to prabhu talamantes
[2019-10-27 16:08] LABS: ACID FAST SMEAR Negative (()); AFB SPECIMEN PROCESSING Concentration (())
--- NOTE | 2019-10-27 18:00 | NUR ---
PARTIAL BATH GIVEN, PT SEDATED ON VENT.
[2019-10-28] VITALS (23 sets, daily range): BP systolic 94–179; BP diastolic 60–105
[2019-10-28 04:47] LABS: BASOPHILS 0 % (0-2); EOSINOPHILS 0 % (0-7); HEMATOCRIT 38.1 % (42.0-54.0); HEMOGLOBIN 11.8 g/dL (13.5-17.5); IMMATURE GRANULOCYTES 0.8 % (0-5); LYMPHOCYTES 6.2 % (15-50); MCH 28.1 pg (26.0-34.0); MCV 90.7 fL (80.0-100.0); MEAN PLATELET VOLUME 10.5 fL (7.4-10.4); MONOCYTES 3.7 % (2-11); NEUTROPHILS 89.3 % (40-80); PLATELET COUNT 160 10x3/uL (130-400); RDW 15.6 % (11.5-14.5); WBC 7.6 10x3/uL (4.8-10.8)
[2019-10-28 05:14] LABS: ALBUMIN 1.8 g/dL (3.4-5.0); ALKALINE PHOSPHATASE 65 U/L (30-120); BILIRUBIN - TOTAL 0.41 mg/dL (0.2-1.3); CALC OSMOLALITY 299 mosm/kg (275-300); CALCIUM 7.4 mg/dL (8.5-10.1); CHLORIDE - SERUM 104 mmol/L (98-107); CREATININE - SERUM 0.8 mg/dL (0.6-1.3); GLUCOSE 315 mg/dL (74-106); POTASSIUM - SERUM 4.2 mmol/L (3.5-5.1); PROTEIN - SERUM 5.5 g/dL (6.4-8.2); SODIUM 141 mmol/L (136-145); UREA NITROGEN 32 mg/dL (7-18); eGFR NON AFRICAN AMERICAN > 90 mL/min (90-120)
[2019-10-28 05:15] LABS: ALT (SGPT) 42 U/L (10-68)
--- NOTE | 2019-10-28 07:26 | NUR ---
report received from breana talamantes. patient is on tube feeding with propofol and normal saline. patient is desatting. spo2 finger probe replaced. patient suctioned and turned. saturation increased. colostomy on left side. pale skin. chg bath given last night. lungs crackles. will continue to monitor
--- NOTE | 2019-10-28 08:30 | NUR ---
CPAP TRIALS BEGAN
--- NOTE | 2019-10-28 09:47 | NUR ---
Nutrition follow-up: CPAP trials today; possible extubation Pulmocare on hold at this time. Labs reviewed Wt: 266# RDN following.
--- NOTE | 2019-10-28 10:21 | NUR ---
patient extubated at this time
--- NOTE | 2019-10-28 10:29 | NUR ---
full bath given and linens changed. midline dressing changed. colostomy bag changed.
[2019-10-28 11:10] LABS: FUNGUS STAIN Final report (())
--- NOTE | 2019-10-28 13:23 | NUR ---
PATIENT REQUESTING COFFEE. EDUCATED ON WHY HE IS NPO AFTER EXTUBATION.
--- NOTE | 2019-10-28 15:40 | NUR ---
dr powers stated he wants bipap at night 08/20 40%
--- NOTE | 2019-10-28 16:40 | NUR ---
PATIENT BP RISING. I ASKED PT IF HE FELT ANXIOUS NODDED YES. ASKED IF HE WANTED MEDICINE AND NODDED YES
--- NOTE | 2019-10-28 18:18 | NUR ---
patient has a weak cough. suctioned. still crackly. encouraged to cough. you can hear gurgle in the back of his throat. tried to suction out. minimal success. educated patient on why he needs to be coughing that mucus out
[2019-10-29] VITALS (15 sets, daily range): BP systolic 112–171; BP diastolic 75–109
[2019-10-29 04:03] LABS: BASOPHILS 0 % (0-2); EOSINOPHILS 0 % (0-7); HEMATOCRIT 42.6 % (42.0-54.0); HEMOGLOBIN 13.4 g/dL (13.5-17.5); IMMATURE GRANULOCYTES 1.2 % (0-5); LYMPHOCYTES 5.3 % (15-50); MCH 28.4 pg (26.0-34.0); MCHC 31.5 g/dL (31.0-37.0); MCV 90.3 fL (80.0-100.0); MEAN PLATELET VOLUME 10.6 fL (7.4-10.4); MONOCYTES 3.7 % (2-11); NEUTROPHILS 89.8 % (40-80); PLATELET COUNT 190 10x3/uL (130-400); RBC 4.72 10x6/uL (4.20-6.10); RDW 15.2 % (11.5-14.5); WBC 9.8 10x3/uL (4.8-10.8)
[2019-10-29 04:39] LABS: ALBUMIN 2.2 g/dL (3.4-5.0); ALKALINE PHOSPHATASE 70 U/L (30-120); ALT (SGPT) 33 U/L (10-68); BILIRUBIN - TOTAL 0.76 mg/dL (0.2-1.3); CALCIUM 7.7 mg/dL (8.5-10.1); CARBON DIOXIDE 32.2 mmol/L (21.0-32.0); CHLORIDE - SERUM 98 mmol/L (98-107); CREATININE - SERUM 0.8 mg/dL (0.6-1.3); POTASSIUM - SERUM 3.8 mmol/L (3.5-5.1); SODIUM 137 mmol/L (136-145); UREA NITROGEN 27 mg/dL (7-18); eGFR NON AFRICAN AMERICAN > 90 mL/min (90-120)
[2019-10-29 04:44] LABS: CALC OSMOLALITY 287 mosm/kg (275-300); GLUCOSE 253 mg/dL (74-106)
--- NOTE | 2019-10-29 09:18 | NUR ---
DR KIM STATES PATIENT IS OK TO TRANSFER TO FLOOR
--- NOTE | 2019-10-29 11:27 | NUR ---
GAVE PATIENT ON ICE CHIP. SEEMED TO TOLERATE OKAY. AWAITING SPEECH EVAL BEFORE GIVING WATER
--- NOTE | 2019-10-29 12:52 | NUR ---
darlene at bedside. swallow eval being done at this time
--- NOTE | 2019-10-29 19:00 | NUR ---
SHIFT ASSESSMENT COMPLETED. PT CARE ASSUMED. MONITORS ON AND WORKING, VITALS STABLE, SEE FLOW SHEET FOR FURTHER DETAILS. WILL CONTINUE TO OBSERVE.
--- NOTE | 2019-10-29 21:00 | NUR ---
PT TURNED AND REPOSITIONED FOR COMFORT, MONITORS ON AND WORKING, VITALS STABLE, UNSTAGEABLE PRESSURE ULCER NOTED TO COCCYX, NEW MEPILEX ON. WILL FOLLOW UP WITH WOUND CARE CONSULT. WILL CONTINUE TO OBSERVE.
--- NOTE | 2019-10-29 23:00 | NUR ---
NO CHANGES, SEE FLOW SHEET FOR FURTHER DETAILS. WILL CONTINUE TO OBSERVE.
[2019-10-30] VITALS (60 sets, daily range): BP systolic 60–137; BP diastolic 37–88
--- NOTE | 2019-10-30 01:00 | NUR ---
PT TURNED AND RESPOSITIONED FOR COMFORT, MONITORS ON AND WORKING, VITALS STABLE, WILL CONTINUE TO OBSERVE.
--- NOTE | 2019-10-30 03:00 | NUR ---
PT TURNED AND REPOSITIONED FOR COMFORT, MONITORS ON AND WORKING, VITALS STABLE,CALL LIGHT WITHIN REACH, WILL CONTINUE TO OBSERVE.
[2019-10-30 04:13] LABS: BASOPHILS 0.1 % (0-2); EOSINOPHILS 0.8 % (0-7); HEMOGLOBIN 13.8 g/dL (13.5-17.5); IMMATURE GRANULOCYTES 1.1 % (0-5); MCHC 31.4 g/dL (31.0-37.0); MCV 89.2 fL (80.0-100.0); MEAN PLATELET VOLUME 10.6 fL (7.4-10.4); MONOCYTES 8.8 % (2-11); NEUTROPHILS 80.2 % (40-80); PLATELET COUNT 216 10x3/uL (130-400); RBC 4.93 10x6/uL (4.20-6.10); WBC 11.6 10x3/uL (4.8-10.8)
[2019-10-30 04:36] LABS: ALBUMIN 2.1 g/dL (3.4-5.0); ALKALINE PHOSPHATASE 66 U/L (30-120); ALT (SGPT) 32 U/L (10-68); BILIRUBIN - TOTAL 0.76 mg/dL (0.2-1.3); CALC OSMOLALITY 286 mosm/kg (275-300); CALCIUM 8.1 mg/dL (8.5-10.1); CARBON DIOXIDE 36.4 mmol/L (21.0-32.0); CHLORIDE - SERUM 100 mmol/L (98-107); CREATININE - SERUM 0.8 mg/dL (0.6-1.3); POTASSIUM - SERUM 3.4 mmol/L (3.5-5.1); PROTEIN - SERUM 5.7 g/dL (6.4-8.2); SODIUM 139 mmol/L (136-145); UREA NITROGEN 27 mg/dL (7-18); eGFR NON AFRICAN AMERICAN > 90 mL/min (90-120)
[2019-10-30 04:37] LABS: GLUCOSE 174 mg/dL (74-106)
--- NOTE | 2019-10-30 07:00 | NUR ---
BEDSIDE REPORT RECEIVED. SHIFT ASSESSMENT COMPLETED PER FLOWSHEET, SEE FLOWSHEET FOR INFORMATION. REPOSITIONED PER COMFORT, ENCOURAGED PT TO COUGH AND DEEP BREATH. RT NOTIFIED. VSS. WILL CONT TO MONITOR.
--- NOTE | 2019-10-30 09:00 | NUR ---
SPOKE WITH PT REGARDING CARE, NO ACUTE NEEDS OR DISTRESS NOTED AT THIS TIME. WILL CONT TO MONITOR.
--- NOTE | 2019-10-30 09:15 | NUR ---
BLOOD PRESSURE 64/43, [facility] NOTIFED. 250ML BOLUS ORDERED. WILL CONT TO MONITOR.
--- NOTE | 2019-10-30 11:00 | NUR ---
REASSESSMENT COMPLETED PER FLOWSHEET, SEE FLOWSHEET FOR INFORMAITON. WILL CONT TO MONITOR.
--- NOTE | 2019-10-30 11:06 | NUR ---
NUTRITION F/U SPEECH THERAPY RESULTS NOTED. PT REMAINS NPO. MAY BENEFIT FROM TEMPORARY NG TUBE FEEDS IF UNABLE TO START PO IN 24 TO [address] FOLLOWING
--- NOTE | 2019-10-30 11:15 | NUR ---
TRIED CALLIING ALL NUMBERS ON RECORD, ALL LINES WERE DISCONNECTED. TRIED CALLING MULTIPLE TIMES.
--- NOTE | 2019-10-30 11:45 | NUR ---
REINTUBATED BY ANESTHESIOLOGY, . WILL CONT TO MONITOR.
--- NOTE | 2019-10-30 13:00 | NUR ---
PT RESTING IN BED WITH EYES CLOSED. WILL CONT TO MONITOR.
--- NOTE | 2019-10-30 15:00 | NUR ---
REASSESSMENT COMPLETED PER FLOWSHEET, SEE FLOWSHEET FOR INFORMATION. AT BEDSIDE INSERTING CVL. WILL CONT TO MONITOR.
[2019-10-30 15:30] LABS: CKMB 0.8 U/L (0.0-3.6); CREATINE KINASE 52 UL (21-232); TROPONIN-I < 0.017 ng/mL (0.000-0.060)
--- NOTE | 2019-10-30 17:00 | NUR ---
COMPLETE LINEN CHANGE COMPLETED. PT DIAPHORETIC. NOTIFIED. WILL CONT TO MONITOR.
--- NOTE | 2019-10-30 19:00 | NUR ---
REPORT RECEIVED INITIAL ASSESSMENT COMPLETE SEE FULL ASSESSMENT FLOWSHEET. SEDATED ORALLY INTUBATED SEE RESP THERAPISTS NOTES AND IV DRIP FLOWSHEETS AND FOR DRIP CHANGES. CM READING 48-60'S JUNCTIONAL ALARMS ON AND AUDIBLE. BED IN LOW POSITION SIDE RAILS UP TIMES 3 FOR SAFETY. REPOSITIONED AND ORAL CARE DONE. CPOC WILL CONTINUE TO MONITOR
[2019-10-30 20:13] LABS: CKMB 0.4 U/L (0.0-3.6); CREATINE KINASE 30 UL (21-232)
[2019-10-30 20:14] LABS: TROPONIN-I < 0.017 ng/mL (0.000-0.060)
--- NOTE | 2019-10-30 23:00 | NUR ---
REASSESSMENT COMPLETE NO CHANGES CPOC REPOSITIONED FOR COMFORT
[2019-10-31] VITALS (96 sets, daily range): BP systolic 66–145; BP diastolic 46–103
--- NOTE | 2019-10-31 00:40 | NUR ---
VENT O2 DECREASED TO 60% PER RT ANA
--- NOTE | 2019-10-31 03:00 | NUR ---
REASSESSMENT COMPLETE NO CHANGES CPOC
--- NOTE | 2019-10-31 05:15 | NUR ---
LAB DRAWN FROM CENTRAL LINE
[2019-10-31 06:09] LABS: CKMB 0.5 U/L (0.0-3.6); CREATINE KINASE 21 UL (21-232); TROPONIN-I 0.022 ng/mL (0.000-0.060)
--- NOTE | 2019-10-31 07:00 | NUR ---
BEDSIDE REPORT RECEIVED. SHIFT ASSESSMENT COMPLETED PER FLOWSHEET, SEE FLOWSHEET FOR INFORMATION. TURNED PER COMFORT. NO ACUTE NEEDS OR DISTRESS NOTED AT THIS TIME. WILL CONT TO MONITOR.
--- NOTE | 2019-10-31 09:00 | NUR ---
TURNED PER COMFORT, ORAL CARE AND INLINE SUCTIONED. NO ACUTE NEEDS OR DISTRESS NOTED AT THIS TIME. VSS. WILL CONT TO MONITOR.
--- NOTE | 2019-10-31 11:00 | NUR ---
REASSESSMENT COMPLETED PER FLOWSHEET, SEE FLOWSHEET FOR INFORMATION. NO ACUTE NEEDS OR DISTRESS NOTED AT THIS TIME. WILL CONT TO MONITOR.
--- NOTE | 2019-10-31 13:00 | NUR ---
NO ACUTE NEEDS OR DISTRESS NOTED AT THIS TIME. WILL CONT TO MONITOR.
--- NOTE | 2019-10-31 15:00 | NUR ---
REASSESSMENT COMPLETED PER FLOWSHEET, SEE FLOWSHEET FOR INFORMAITON. NO ACUTE NEEDS OR DISTRESS NOTED AT THIS TIME. WILL CONT TO MONITOR.
--- NOTE | 2019-10-31 17:00 | NUR ---
NO ACUTE NEEDS OR DISTRESS NOTED AT THIS TIME. WILL CONT TO MONITOR.
--- NOTE | 2019-10-31 19:00 | NUR ---
REPORT RECEIVED INITIAL ASSESSMENT COMPLETE FLOWSHEET CPOC WILL MONITOR
--- NOTE | 2019-10-31 23:00 | NUR ---
REASSESSMENT MADE NO CHANGES CPOC ORAL CARE AND REPOSITIONED
[2019-11-01] VITALS (95 sets, daily range): BP systolic 69–182; BP diastolic 45–100
--- NOTE | 2019-11-01 03:00 | NUR ---
REASSESSMENT MADE. NO CHANGES CPOC
--- NOTE | 2019-11-01 07:00 | NUR ---
BEDSIDE REPORT RECEIVED. SHIFT ASSESSMENT COMPLETED PER FLOWSHEET, SEE FLOWSHEET FOR INFORMATION. NO ACUTE NEEDS OR DISTRESS NOTED AT THIS TIME. WILL CONT TO MONITOR.
--- NOTE | 2019-11-01 09:00 | NUR ---
0900 MEDICATIONS GIVEN. NO ACUTE NEEDS OR DISTRESS NOTED AT THIS TIME. WILL CONT TO MONITOR.
--- NOTE | 2019-11-01 11:00 | NUR ---
REASSESSMENT COMPLETED PER FLOWSHEET, SEE FLOWSHEET FOR INFORMATION. NO ACUTE NEEDS OR DISTRESS NOTED AT THIS TIME.
--- NOTE | 2019-11-01 13:00 | NUR ---
REPOSITIONED PER COMFORT, NO ACUTE NEEDS OR DISTRESS NOTED AT THIS TIME. VSS. WILL CONT TO MONITOR.
--- NOTE | 2019-11-01 15:00 | NUR ---
REASSESSMENT COMPLETED PER FLOWSHEET, SEE FLOWSHEET FOR INFORMATION. TURNED PER COMFORT, NO ACUTE NEEDS OR DISTRESS NOTED AT THIS TIME. WILL CONT TO MONITOR.
--- NOTE | 2019-11-01 17:00 | NUR ---
MEDICATIONS GIVEN. NO ACUTE NEEDS OR DISTRESS NOTED AT THIS TIME. VSS. WILL CONT TO MONITOR.
--- NOTE | 2019-11-01 19:00 | NUR ---
REPORT RECEIVED INITIAL ASSESSMENT COMPLETE SEE SHIFT ASSESSMENT. ORALLY INTUBATED AND SEDATED SEE IV DRIPS AND RESP NOTES FOR VENT CHANGES. ATTEMPTING TO WEAN LEVOPHED CM READING SB ALARMS ON AND AUDIBLE. CPOC WILL CONTINUE TO MONITOR
--- NOTE | 2019-11-01 23:00 | NUR ---
REASSESSMENT COMPLETE CONTINUE TO WEAN LEVOPHED CPOC
[2019-11-02] VITALS (96 sets, daily range): BP systolic 64–193; BP diastolic 42–92
--- NOTE | 2019-11-02 03:00 | NUR ---
REASSESSMENT COMPLETE CPOC
--- NOTE | 2019-11-02 05:00 | NUR ---
REPOSITIONED ORAL CARE DONE CPOC
--- NOTE | 2019-11-02 07:15 | NUR ---
REPORT RECEIVED. PT ON DROPLET ISOLATION FOR E.COLI IN SPUTUM. PT IS ON VENT. SETTINGS PER RT. PT HAS OGT WITH PULMOCARE INFUSING. GOAL IS 40ML/HR. PT HAS LEFT SUBCLAVIAN CENTRAL LINE WITH LEVOPHED, NS, FENTANYL, AND PROPOFOL INFUSING. PT HAS A COLOSTOMY BAG AND HAS A GEORGE. PT IS IN SINUS ALFONSO. WILL CONTINUE TO MONITOR.
--- NOTE | 2019-11-02 09:10 | NUR ---
PT REPOSITIONED AND SUCTIONED. VSS. WILL CONTINUE TO MONITOR.
--- NOTE | 2019-11-02 09:20 | NUR ---
Nutrition follow-up: Pt reintubated 10/30 Pulmocare infusing @ 30 ml/hr -> goal rate 40 ml/hr Labs reviewed Wt: 249# Recommend TF goal rate of 60 ml/hr to better meet pts estimated nutritional needs. RDN following.
--- NOTE | 2019-11-02 11:10 | NUR ---
PT REPOSITIONED AND SUCTIONED. WILL CONTINUE TO MONITOR.
--- NOTE | 2019-11-02 12:27 | NUR ---
TITRATING LEVOPHED PER BP AND ORDER. WILL CONTINUE TO MONITOR.
--- NOTE | 2019-11-02 13:38 | NUR ---
PT SEDATED. OPENS EYES TO PHYSICAL STIMULI. VSS. WILL CONTINUE TO MONITOR.
--- NOTE | 2019-11-02 15:00 | NUR ---
REASSESSMENT DONE AND CHARTED. VSS. WILL CONTINUE TO MONITOR.
[2019-11-02 15:10] LABS: FUNGUS MYCOLOGY CULTURE Preliminary report (())
--- NOTE | 2019-11-02 17:02 | NUR ---
IS AND OS DONE. PT REPOSITIONED AND SUCTIONED. VSS. WILL CONTINUE TO MONITOR.
--- NOTE | 2019-11-02 17:52 | NUR ---
DR CARTY ROUNDED ON PT. NO NEW ORDERS AT THIS TIME.
--- NOTE | 2019-11-02 19:00 | NUR ---
REPORT RECEIVED. PT SEDATED ON VENT. PULMOCARE VIA OGT, PULMOCARE AT 40ML/HR. NO ACUTE DISTRESS NOTED. SOFT WRIST RESTRAINTS IN PLACE. ASSESSMENT COMPLETED, SEE FLOWSHEET. LT SUBCLAVIAN CVL IN PLACE, LEFT UPPER ARM MIDLINE CATH IN PLACE, SEE IV FLOWSHEET. WILL CONTINUE TO MONITOR.
--- NOTE | 2019-11-02 21:00 | NUR ---
PT REPOSITIONED FOR COMFORT. OPENS EYES TO VERBAL STIMULI. WILL CONTINUE TO MONITOR.
--- NOTE | 2019-11-02 23:00 | NUR ---
PT SEDATED ON VENT. NO ACUTE DISTRESS NOTED. WILL CONTINUE TO MONITOR.
[2019-11-03] VITALS (94 sets, daily range): BP systolic 72–161; BP diastolic 42–100
--- NOTE | 2019-11-03 01:00 | NUR ---
PT SEDATED ON VENT, REPOSITIONED FOR COMFORT. WILL CONTINUE TO MONITOR.
--- NOTE | 2019-11-03 03:00 | NUR ---
PT SEDATED, OPENS EYES SPONTANEOUSLY. NO ACUTE DISTRESS NOTED, WILL CONTINUE TO MONITOR.
--- NOTE | 2019-11-03 05:00 | NUR ---
PT SEDATED, OPENS EYES. REPOSITIONED FOR COMFORT. WILL CONTINUE TO MONITOR.
[2019-11-03 08:18] LABS: BASOPHILS 0 % (0-2); EOSINOPHILS 2.2 % (0-7); HEMATOCRIT 35.8 % (42.0-54.0); HEMOGLOBIN 11.3 g/dL (13.5-17.5); IMMATURE GRANULOCYTES 0.2 % (0-5); LYMPHOCYTES 13.5 % (15-50); MCH 28.1 pg (26.0-34.0); MCHC 31.6 g/dL (31.0-37.0); MCV 89.1 fL (80.0-100.0); MONOCYTES 3.3 % (2-11); NEUTROPHILS 80.8 % (40-80); PLATELET COUNT 143 10x3/uL (130-400); RBC 4.02 10x6/uL (4.20-6.10); RDW 15.9 % (11.5-14.5); WBC 8.2 10x3/uL (4.8-10.8)
[2019-11-03 08:20] LABS: CALC OSMOLALITY 290 mosm/kg (275-300); CALCIUM 7.1 mg/dL (8.5-10.1); CARBON DIOXIDE 26.2 mmol/L (21.0-32.0); CHLORIDE - SERUM 107 mmol/L (98-107); CREATININE - SERUM 0.6 mg/dL (0.6-1.3); POTASSIUM - SERUM 3.9 mmol/L (3.5-5.1); SODIUM 139 mmol/L (136-145); UREA NITROGEN 26 mg/dL (7-18); eGFR NON AFRICAN AMERICAN > 90 mL/min (90-120)
[2019-11-03 08:21] LABS: GLUCOSE 244 mg/dL (74-106)
--- NOTE | 2019-11-03 11:50 | NUR ---
0700 REPORT RECIEVED AND CARE ASSUMED OF PATIENT... PT IS ORALLY INTUBATED AND SEDATED ON THE VENT.. SEE FLOW SHEET FOR ASSESMENT FINDINGS.. 0745 LABS DRAWN PERIFERAL... CVL NOT DRAWING.. 0900 COLOSTOMY BAG EMPTIED.. 1000 COMPLETE CHG BATH WITH LINEN CHANGE DONE.. ORAL CARE .. CVL DRESSING CHANGE AND REPOSITIONED.. 1130 DR CARTY IN TO SEE PT.. NO CHANGES TO VENT AT THIS TIME..
--- NOTE | 2019-11-03 13:55 | NUR ---
1200 WITHOUT VISITORS AT THIS TIME.. 1330 REPOSITIONED ON BACK.. NEW SYRING FENTANYL HUNG
--- NOTE | 2019-11-03 18:40 | MORECARE ---
CASE MANAGEMENT DISCHARGE SUMMARY PATIENT: BROOKE DAVALOS UNIT: [id number] ADM DATE: 10/19/19 AGE: 64 : 53 SEX: M ROOM/BED: D.2303 AUTHOR: CROW,DOC PHYSICIAN: REFERRING PHYSICIAN: MONTANA DOZIER MD DATE OF SERVICE: 11/03/19 Discharge Plan Patient Name: BROOKE DAVALOS Facility: [facility]:[place] : 1955 Planned Disposition: SNF w Planned Readmission Anticipated Discharge Date: 10/23/19 Discharge Date: Expected LOS: 4 Initial Reviewer: [email or web address] Initial Review Date: 10/19/2019 Generated: 11/03/19 7:40 pm Comments DCP- Discharge Planning Updated by [email or web address]: Joanna Del Valle on 11/03/19 5:[address] CM attempted to contact patient's brother listed as a contact Peyman Davalos. No voicemail set up and no answer. CM contacted [facility] and they are still planning on accepting patient back unless he has to be trached then it would need to be at least 30 days old. They do not accept vent patients just trach collar. CM spoke with them regarding contacts and the only listings they had was two friends. CM will continue to follow and assist in discharge planning / needs. DCP- Discharge Planning Updated by [id number]: Ericka Basurto on 10/19/19 12:[address] DC PLAN: Resident at [facility] ANTICIPATED DC NEEDS: Transportation back to [place]. CM met with patient who is intubated and unable to answer questions. CM noted on his chart he is from [facility]. CM called [facility], spoke to Ligia SANCHEZ, who reported the patient is a resident at their facility. He is usually Alert and Oriented x 3. He is wheelchair bound. He uses O2 2L at all times. At discharge patient will return to [facility]. CM will continue to follow and will assist as needed with dc plans/needs. Ericka Basurto RN, [facility] DCPIA - Discharge Planning Initial Assessment Updated by [email or web address]: Ericka Basurto on 10/19/19 1:23 pm * Is the patient Alert and Oriented? Yes * How many steps to enter\exit or inside your home? None * PCP Dr. Hussein Perry * Pharmacy [facility] * Preadmission Environment Residential Detention * Facility Name [facility] - Resident there. * ADLs Partial Dependent * Partial ADLs (Assistance needed) Ambulation Medication Management Transfers * Equipment Oxygen Wheelchair * List name and contact numbers for known caregivers / representatives who currently or will assist patient after discharge: Eladio Pedroza - friend [phone] Reena Pedroza - friend [phone] * Verbal permission to speak to the caregivers and representatives has been obtained from the patient. Yes * Community resources currently utilized None * Additional services required to return to the preadmission environment? No * Can the patient safely return to the preadmission environment? Yes * Has this patient been hospitalized within the prior 30 days at any hospital? No Last DP export: 10/19/19 12:31 pm Patient Name: BROOKE DAVALOS Page [id number] at 1840 All edits/amendments must be made on the electronic document DICTATION DATE: 11/03/191839 MONUMENT SETTER: HIEN 11/03/191839 RPT#: [id number] DC DATE: STATUS: ADM IN [facility] [address] [place] [address] END OF REPORT
--- NOTE | 2019-11-03 19:00 | NUR ---
REPORT RECEIVED. PT SEDATED, ON VENT. SOFT WRIST RESTRAINTS IN PLACE. GEORGE IN PLACE. LT SUBCLAVIAN CVL INFUSING, LEFT UPPER ARM MIDLINE CATH INFUSING, SEE IV FLOWSHEET. ASSESSMENT COMPLETED, SEE FLOWSHEET. NO ACUTE DISTRESS NOTED AT THIS TIME, WILL CONTINUE TO MONITOR.
--- NOTE | 2019-11-03 21:00 | NUR ---
PM MEDS ADMINISTERED WITHOUT DIFFICULTY. REPOSITIONED FOR COMFORT.
--- NOTE | 2019-11-03 23:00 | NUR ---
PT SEDATED ON VENT. REASSESSMENT COMPLETED, REPOSITIONED FOR COMFORT.
[2019-11-04] VITALS (80 sets, daily range): BP systolic 83–149; BP diastolic 35–96
--- NOTE | 2019-11-04 01:00 | NUR ---
PT SEDATED ON VENT, REPOSITIONED NEEDED.
--- NOTE | 2019-11-04 03:00 | NUR ---
PT SEDATED ON VENT. NO ACUTE DISTRESS NOTED. REPOSITIONED FOR COMFORT.
--- NOTE | 2019-11-04 05:00 | NUR ---
PT SEDATED ON VENT, FOLLOWS COMMANDS. REPOSITIONED FOR COMFORT.
--- NOTE | 2019-11-04 07:00 | NUR ---
PT RESTING IN BED, VSS AND WNL. NO SIGNS OF DISTRESS NOTED. BED ALARM ON. ETT SECURED. GEORGE CATHETER DRAINING WITH NO LOOPS NOTED. DENIES ANY NEEDS AT THIS TIME, WILL CONT TO FOLLOW POC
--- NOTE | 2019-11-04 09:00 | NUR ---
PT RESTING IN BED, VSS AND WNL. NO SIGNS OF DISTRESS NOTED. PT FOLLOWS DIRECTIONS. GEORGE WRIST RESTRAINTS IN PLACE. DENIES ANY NEEDS AT THIS TIME, WILL CONT TO FOLLOW POC
--- NOTE | 2019-11-04 09:06 | NUR ---
Nutrition follow-up: Pt awake, waving; still intubated with weaning in progress. Pulmocare continues infusing @ 40 ml/hr Propofol decreased to 20 ml/hr Labs reviewed RDN following.
--- NOTE | 2019-11-04 11:00 | NUR ---
PT RESTING IN BED, VSS AND WNL. ETT SECURED. PT FOLLOWING DIRECTIONS AND ANSWERING YES NO QUESTIONS. BED ALARM ON. NO SIGNS OF DISTRESS NOTED. WILL CONT TO FOLLOW POC
[2019-11-04 11:10] LABS: FUNGUS CULTURE RESULT 1 Candida glabrata (())
--- NOTE | 2019-11-04 13:00 | NUR ---
PT RESTING IN BED, VSS AND WNL. ETT SECURED. NO SIGNS OF DISTRESS NOTED. BED ALARM ON. WILL CONT TO FOLLOW POC
--- NOTE | 2019-11-04 15:00 | NUR ---
PT RESTING IN BED. VSS AND WNL. ETT SECURED. NO SIGNS OF DISTRESS NOTED. BED ALARM ON. CALL LIGHT WITHIN REACH, WILL CONT TO FOLLOW POC
--- NOTE | 2019-11-04 17:00 | NUR ---
PT RESTING IN BED, VSS AND WNL. ETT SECURED. GEORGE CATHETER IN PLACE WITH NO LOOPS NOTED. CALL LIGHT WITHIN REACH. DRESSING TO LEFT ARM MIDLINE CHANGED, DRESSING TO LEFT SUBCLAVIAN CVL CHANGED. WILL CONT TO FOLLOW POC
[2019-11-05] VITALS (33 sets, daily range): BP systolic 68–163; BP diastolic 45–105
[2019-11-05 06:05] LABS: CALC OSMOLALITY 292 mosm/kg (275-300); CALCIUM 7.5 mg/dL (8.5-10.1); CARBON DIOXIDE 30.7 mmol/L (21.0-32.0); CHLORIDE - SERUM 110 mmol/L (98-107); CREATININE - SERUM 0.7 mg/dL (0.6-1.3); POTASSIUM - SERUM 3.7 mmol/L (3.5-5.1); SODIUM 143 mmol/L (136-145); UREA NITROGEN 22 mg/dL (7-18); eGFR NON AFRICAN AMERICAN > 90 mL/min (90-120)
[2019-11-05 06:12] LABS: GLUCOSE 190 mg/dL (74-106)
[2019-11-05 06:34] LABS: BASOPHILS 0 % (0-2); HEMATOCRIT 35.8 % (42.0-54.0); HEMOGLOBIN 10.8 g/dL (13.5-17.5); IMMATURE GRANULOCYTES 0.3 % (0-5); LYMPHOCYTES 14.1 % (15-50); MCH 27.8 pg (26.0-34.0); MCHC 30.2 g/dL (31.0-37.0); MEAN PLATELET VOLUME 10.7 fL (7.4-10.4); MONOCYTES 4.3 % (2-11); NEUTROPHILS 79.3 % (40-80); RBC 3.88 10x6/uL (4.20-6.10); RDW 16.1 % (11.5-14.5); WBC 8.6 10x3/uL (4.8-10.8)
[2019-11-05 06:35] LABS: MCV 92.3 fL (80.0-100.0); PLATELET COUNT 114 10x3/uL (130-400)
--- NOTE | 2019-11-05 17:39 | NUR ---
0700- see assessment 0900- chg bath done 1100- dr phillips at bedside 1300- propofol tubing changed 1500- see reassessment 1700- i and o done
--- NOTE | 2019-11-05 19:19 | MORECARE ---
CASE MANAGEMENT DISCHARGE SUMMARY PATIENT: ROOSEVELT AGUSTIN UNIT: [id number] ADM DATE: 10/19/19 AGE: 64 : 51 SEX: M ROOM/BED: D.2303 AUTHOR: CROW,DOC PHYSICIAN: REFERRING PHYSICIAN: MONTANA DOZIER MD DATE OF SERVICE: 11/05/19 Discharge Plan Patient Name: ROOSEVELT AGUSTIN Facility: [facility]:[place] : 1955 Planned Disposition: SNF w Planned Readmission Anticipated Discharge Date: 10/23/19 Discharge Date: Expected LOS: 4 Initial Reviewer: [email or web address] Initial Review Date: 10/19/2019 Generated: 11/05/19 8:19 pm Comments DCP- Discharge Planning Updated by [email or web address]: Joanna Del Valle on 11/05/19 6:[address] CM was finally able to get in touch with patient's friend that is listed as an emergency contact Reena Pedroza [phone]. Also have a listing for Eladio Pedroza [phone]. Reena stated that the patient's brother Peyman is also in the hospital that is why we have not been able to get in touch with him. (unknown hospital) Reena stated that it was in the works prior to patient coming back into hospital to come and live with them. The plan was for him to [facility] then move in with them. STARLA asked if they had POA and she stated "No they hadn't got that far yet." Reena asked if the doctor had done the procedure they had called her earlier to get consent. STARLA stated "yes" and explained again as to what the bronchoscopy was. Reena stated that [place] has been part of their family for a long time. STARLA explained that we would be getting back in touch with her at a later date. CM will continue to follow and assist as needed with discharge planning / needs. DCP- Discharge Planning Updated by [email or web address]: Joanna Del Valle on 11/03/19 5:[address] CM attempted to contact patient's brother listed as a contact Peyman Agustin. No voicemail set up and no answer. CM contacted [facility] and they are still planning on accepting patient back unless he has to be trached then it would need to be at least 30 days old. They do not accept vent patients just trach collar. CM spoke with them regarding contacts and the only listings they had was two friends. CM will continue to follow and assist in discharge planning / needs. DCP- Discharge Planning Updated by [email or web address]: Ericka Basurto on 10/19/19 12:[address] DC PLAN: Resident at [facility] ANTICIPATED DC NEEDS: Transportation back to [place]. CM met with patient who is intubated and unable to answer questions. CM noted on his [facility] CM called [facility], spoke to Ligia SANCHEZ, who reported the patient is a resident at their facility. He is usually Alert and Oriented x 3. He is wheelchair bound. He uses O2 2L at all times. At discharge patient will return to [facility]. CM will continue to follow and will assist as needed with dc plans/needs. Ericka Basurto RN, [facility] DCPIA - Discharge Planning Initial Assessment Updated by [id number]: Ericka Basurto on 10/19/19 1:23 pm * Is the patient Alert and Oriented? Yes * How many steps to enter\\exit or inside your home? None * PCP Dr. Hussein Perry * Pharmacy [facility] * [facility] * Facility Name [facility] - Resident there. * ADLs Partial Dependent * Partial ADLs (Assistance needed) Ambulation Medication Management Transfers * Equipment Oxygen Wheelchair * List name and contact numbers for known caregivers / representatives who currently or will assist patient after discharge: Eladio Pedroza - friend [phone] Reena Pedroza - friend [phone] * Verbal permission to speak to the caregivers and representatives has been obtained from the patient. Yes * Community resources currently utilized None * Additional services required to return to the preadmission environment? No * Can the patient safely return to the preadmission environment? Yes * Has this patient been hospitalized within the prior 30 days at any hospital? No Last DP export: 11/03/19 5:40 p Patient Name: ROOSEVELT AGUSTIN Page [id number] at 2099 All edits/amendments must be made on the electronic document DICTATION DATE: 11/05/191918 LIVESTOCK SHOWMAN: HIEN 11/05/191918 RPT#: [id number] DC DATE: STATUS: ADM IN [facility] [address] [place] [place] [address] END OF REPORT
[2019-11-06] VITALS (23 sets, daily range): BP systolic 96–164; BP diastolic 60–104
[2019-11-06 06:13] LABS: BASOPHILS 0.1 % (0-2); EOSINOPHILS 1.6 % (0-7); HEMATOCRIT 37.2 % (42.0-54.0); HEMOGLOBIN 11.5 g/dL (13.5-17.5); IMMATURE GRANULOCYTES 0.3 % (0-5); LYMPHOCYTES 11.9 % (15-50); MCHC 30.9 g/dL (31.0-37.0); MCV 90.7 fL (80.0-100.0); MEAN PLATELET VOLUME 11.2 fL (7.4-10.4); MONOCYTES 5.3 % (2-11); NEUTROPHILS 80.8 % (40-80); PLATELET COUNT 120 10x3/uL (130-400); RDW 15.9 % (11.5-14.5); WBC 9.3 10x3/uL (4.8-10.8)
[2019-11-06 06:50] LABS: ALBUMIN 2.1 g/dL (3.4-5.0); ALKALINE PHOSPHATASE 70 U/L (30-120); ALT (SGPT) 27 U/L (10-68); BILIRUBIN - TOTAL 0.49 mg/dL (0.2-1.3); CALC OSMOLALITY 284 mosm/kg (275-300); CALCIUM 7.5 mg/dL (8.5-10.1); CARBON DIOXIDE 31.3 mmol/L (21.0-32.0); CHLORIDE - SERUM 107 mmol/L (98-107); CREATININE - SERUM 0.7 mg/dL (0.6-1.3); GLUCOSE 193 mg/dL (74-106); POTASSIUM - SERUM 3.8 mmol/L (3.5-5.1); PROTEIN - SERUM 5.1 g/dL (6.4-8.2); SODIUM 140 mmol/L (136-145); eGFR NON AFRICAN AMERICAN > 90 mL/min (90-120)
[2019-11-06 06:51] LABS: UREA NITROGEN 16 mg/dL (7-18)
--- NOTE | 2019-11-06 07:00 | NUR ---
report recieved. see assessment. see adl's.
--- NOTE | 2019-11-06 09:06 | NUR ---
see adl's. no acute distress.
--- NOTE | 2019-11-06 09:13 | NUR ---
Nutrition follow-up: Pt remains intubated, sedated with propofol @ 15.8 mg/hr TF of Pulmocare off at this time Labs reviewed Wt: 249# Possible vent weaning today RDN following.
--- NOTE | 2019-11-06 11:29 | NUR ---
DR CARTY SWITCHED TO PS 1-2 HRS TOLERATED
--- NOTE | 2019-11-06 13:01 | NUR ---
RESPIRATORY AT BEDSIDE
[2019-11-06 14:09] LABS: FUNGUS STAIN Final report (())
--- NOTE | 2019-11-06 15:05 | NUR ---
paged dr phillips and he called back
--- NOTE | 2019-11-06 15:09 | NUR ---
FAMILY DOES NOT WANT INFO GIVEN TO [facility]ORALES
--- NOTE | 2019-11-06 15:20 | MORECARE ---
CASE MANAGEMENT DISCHARGE SUMMARY PATIENT: ROOSEVELT AGUSTIN UNIT: [id number] ADM DATE: 10/19/19 AGE: 64 : 51 SEX: M ROOM/BED: D.2303 AUTHOR: CROW,DOC PHYSICIAN: REFERRING PHYSICIAN: MONTANA DOZIER MD DATE OF SERVICE: 11/06/19 Discharge Plan Patient Name: ROOSEVELT AGUSTIN Facility: [facility]:[place] : 1955 Planned Disposition: SNF w Planned Readmission Anticipated Discharge Date: 10/23/19 Discharge Date: Expected LOS: 4 Initial Reviewer: [email or web address] Initial Review Date: 10/19/2019 Generated: 11/06/19 4:20 pm Comments DCP- Discharge Planning Updated by [id number]: Joanna Del Valle on 11/06/19 2:[address] CM received a call from Carlos Agustin (brother) [phone] and it was noted that Peyman Agustin (brother) that is listed as contact is in [facility] and is not capable of making decision. Carlos states that he will make decisions for patient if needed. CM will continue to follow and assist as needed with discharge planning / needs. DCP- Discharge Planning Updated by [id number]: Joanna Del Valle on 11/05/19 6:[address] CM was finally able to get in touch with patient's friend that is listed as an emergency contact Reena Pedroza [phone]. Also have a listing for Eladio Pedroza [phone]. Reena stated that the patient's brother Peyman is also in the hospital that is why we have not been able to get in touch with him. (unknown hospital) Reena stated that it was in the works prior to patient coming back into hospital to come and live with them. The plan was for him to build up his strength at [facility] then move in with them. STARLA asked if they had POA and she stated "No they hadn't got that far yet." Reena asked if the doctor had done the procedure they had called her earlier to get consent. STARLA stated "yes" and explained again as to what the bronchoscopy was. Reena stated that [place] has been part of their family for a long time. CM explained that we would be getting back in touch with her at a later date. CM will continue to follow and assist as needed with discharge planning / needs. DCP- Discharge Planning Updated by [email or web address]: Joanna Del Valle on 11/03/19 5:[address] CM attempted to contact patient's brother listed as a contact Peyman Agustin. No voicemail set up and no answer. CM contacted [facility] and they are still planning on accepting patient back unless he has to be trached then it would need to be at least 30 days old. They do not accept vent patients just trach collar. CM spoke with them regarding contacts and the only listings they had was two friends. CM will continue to follow and assist in discharge planning / needs. DCP- Discharge Planning Updated by [email or web address]: Ericka Basurto on 10/19/19 12:[address] DC PLAN: Resident at [facility] ANTICIPATED DC NEEDS: Transportation back to [place]. CM met with patient who is intubated and unable to answer questions. CM noted on his chart he is from [facility]. CM called [facility], spoke to Ligia SANCHEZ, who reported the patient is a resident at their facility. He is usually Alert and Oriented x 3. He is wheelchair bound. He uses O2 2L at all times. At discharge patient will return to [facility]. CM will continue to follow and will assist as needed with dc plans/needs. Ericka Basurto RN, [facility] DCPIA - Discharge Planning Initial Assessment Updated by [id number]: Ericka Basurto on 10/19/19 1:23 pm * Is the patient Alert and Oriented? Yes * How many steps to enter\\exit or inside your home? None * PCP Dr. Hussein Perry * Pharmacy [facility] * Preadmission Environment [facility] * Facility Name [facility] - Resident there. * ADLs Partial Dependent * Partial ADLs (Assistance needed) Ambulation Medication Management Transfers * Equipment Oxygen Wheelchair * List name and contact numbers for known caregivers / representatives who currently or will assist patient after discharge: Eladio Pedroza - friend [phone] Reena Pedroza - friend [phone] * Verbal permission to speak to the caregivers and representatives has been obtained from the patient. Yes * Community resources currently utilized None * Additional services required to return to the preadmission environment? No * Can the patient safely return to the preadmission environment? Yes * Has this patient been hospitalized within the prior 30 days at any hospital? No Last DP export: 11/05/19 6:19 p Patient Name: ROOSEVELT AGUSTIN Page [id number] at 1520 All edits/amendments must be made on the electronic document DICTATION DATE: 11/06/19 1520 SEARCH SPECIALIST: DM 11/06/19 1520 RPT#: [id number] DC DATE: STATUS: ADM IN [facility] [address] [place] [address] END OF REPORT
--- NOTE | 2019-11-06 15:22 | NUR ---
family is mat and enoch. they are both brother of the patient. lester is also a brother that resides in the long-term in [place] but was told by mat "he is unable to make decisions"
--- NOTE | 2019-11-06 16:41 | NUR ---
BROTHER NUMBER 2 AGUILERA [id number]
--- NOTE | 2019-11-06 17:00 | NUR ---
patient put on nasal cannula. did not tolerate. put back on bipap
[2019-11-06 18:08] LABS: ACID FAST SMEAR Negative (()); AFB SPECIMEN PROCESSING Concentration (())
--- NOTE | 2019-11-06 19:00 | NUR ---
REPORT RECEIVED. INITIAL ASSESSMENT COMPLETE SEE FLOWSHEET. PT EXTUBATED EARLIER TODAY NOW ON BIPAP ALERT ORIENTED TO PERSON KNOWS HE IS IN ICU AT [facility] INFORMED OF SITUATION FOLLOWS COMMANDS EQUAL STRENGTH DENIES PAIN OR SOB AT THIS TIME. CM READING CONTROLLED A FIB ALARMS ON AND AUDIBLE. BED LOW POSITION SIDE RAILS UP TIMES 3 CL IN REACH PT DEMONSTRATED USE OF CALL LIGHT. VSS AT THIS TIME WILL CONTINUE TO MONITOR
--- NOTE | 2019-11-06 21:00 | NUR ---
REPOSITIONED PT NO C/O AT THIS TIME CPOC
--- NOTE | 2019-11-06 23:00 | NUR ---
REASSESSMENT COMPLETE ORAL CARE AND REPOSITIONED WITH WEDGES PT ON FIRST STEP OVERLAY CPOC
[2019-11-07] VITALS (24 sets, daily range): BP systolic 113–169; BP diastolic 78–110
--- NOTE | 2019-11-07 03:00 | NUR ---
REASSESSMENT COMPLETE REPOSITIONED FOR COMFORT ORAL CARE DONE CPOC DENIES PAIN OR DISCOMFORT
--- NOTE | 2019-11-07 05:00 | NUR ---
PT REQUESTING TO BE PULLED UP IN BED AND REPOSITIONED
[2019-11-07 05:30] LABS: BASOPHILS 0.2 % (0-2); EOSINOPHILS 1.5 % (0-7); HEMATOCRIT 34.8 % (42.0-54.0); HEMOGLOBIN 10.9 g/dL (13.5-17.5); IMMATURE GRANULOCYTES 0.3 % (0-5); MCH 27.9 pg (26.0-34.0); MCHC 31.3 g/dL (31.0-37.0); MEAN PLATELET VOLUME 10.3 fL (7.4-10.4); MONOCYTES 6.2 % (2-11); NEUTROPHILS 78.8 % (40-80); PLATELET COUNT 113 10x3/uL (130-400); RBC 3.91 10x6/uL (4.20-6.10); RDW 15.5 % (11.5-14.5)
[2019-11-07 05:44] LABS: WBC 5.8 10x3/uL (4.8-10.8)
[2019-11-07 05:49] LABS: CALCIUM 7.5 mg/dL (8.5-10.1); CHLORIDE - SERUM 104 mmol/L (98-107); MAGNESIUM - SERUM 1.5 mg/dL (1.8-2.4); POTASSIUM - SERUM 3.3 mmol/L (3.5-5.1); SODIUM 139 mmol/L (136-145)
[2019-11-07 05:50] LABS: CALC OSMOLALITY 278 mosm/kg (275-300); CREATININE - SERUM 0.5 mg/dL (0.6-1.3); GLUCOSE 127 mg/dL (74-106); PHOSPHOROUS 1.5 mg/dL (2.5-4.9); UREA NITROGEN 11 mg/dL (7-18); eGFR NON AFRICAN AMERICAN > 90 mL/min (90-120)
--- NOTE | 2019-11-07 07:00 | NUR ---
BEDSIDE REPORT RECEIVED. SHIFT ASSESSMENT COMPLETED PER FLOWSHEET, SEE FLOWSHEET FOR INFORMATION. NO ACUTE NEEDS OR DISTRESS NOTED AT THIS TIME. WILL CONT TO MONITOR.
--- NOTE | 2019-11-07 09:00 | NUR ---
0900 MEDICATIONS GIVEN. WILL CONT TO MONITOR.
--- NOTE | 2019-11-07 11:00 | NUR ---
REASSESSMENT COMPLETED PER LUCIUSTT, SEE FLOWSHEET FOR INFORMATION. NO ACUTE NEEDS OR DISTRESS NOTED AT THIS TIME. WILL CONT TO MONITOR.
--- NOTE | 2019-11-07 13:00 | NUR ---
REPOSTIONED PER COMFORT. PT RESTING IN BED WITH EYES CLOSED.
--- NOTE | 2019-11-07 15:00 | NUR ---
REASSESSMENT COMPLETED PER FLOWSHEET, SEE FLOWSHEET FOR INFORMATION. WILL CONT TO MONITOR.
--- NOTE | 2019-11-07 19:00 | NUR ---
REPORT RECEIVED. INITIAL ASSESSMENT COMPLETE PT ON NC HF AT 4LPM. SHALLOW AND ENCOURAGED TO TCDB. DENIES PAIN AT THIS TIME. ELECTROLYTE REPLACEMENT CONTINUE WITH NS AT 75 CC/HOUR. CM READING AFIB ALARMS ON AND AUDIBLE. SEE FLOWSHEET FOR FULL ASSESSMENT ORAL CARE AND REPOSITIONED CPOC WILL MONITOR
--- NOTE | 2019-11-07 21:00 | NUR ---
COMPLETE CHG BATH AND COMPLETE LINEN CHANGE. MEPILEX INTACT TO BOTTOM CLEAN DRY AND INTACT. REPOSITIONED WITH WEDGES CPOC
--- NOTE | 2019-11-07 23:00 | NUR ---
REASSESSMENT COMPLETE NO CHANGES PT RESTING WITH EYES CLOSED CPOC
[2019-11-08] VITALS (24 sets, daily range): BP systolic 119–180; BP diastolic 76–97
--- NOTE | 2019-11-08 01:00 | NUR ---
REPOSITIONED PT PT DENIES PAIN AT THIS TIME CPOC
--- NOTE | 2019-11-08 04:00 | NUR ---
0300 REASSESSMENT COMPLETE PT COLOSTOMY LEAKED LARGE AMOUNT OF SEMIFORMED LIGHT BROWN STOOL COMPLETE CHG AND LINEN CHANGE AND COLOSTOMY APPLIANCE CHANGED.
[2019-11-08 05:44] LABS: BASOPHILS 0 % (0-2); EOSINOPHILS 1.4 % (0-7); HEMATOCRIT 34.1 % (42.0-54.0); IMMATURE GRANULOCYTES 0.2 % (0-5); LYMPHOCYTES 13.8 % (15-50); MCH 28.1 pg (26.0-34.0); MCHC 32.3 g/dL (31.0-37.0); MCV 87.2 fL (80.0-100.0); MEAN PLATELET VOLUME 9.9 fL (7.4-10.4); MONOCYTES 8.1 % (2-11); NEUTROPHILS 76.5 % (40-80); PLATELET COUNT 118 10x3/uL (130-400); RBC 3.91 10x6/uL (4.20-6.10); RDW 15.6 % (11.5-14.5); WBC 4.9 10x3/uL (4.8-10.8)
[2019-11-08 06:10] LABS: CALC OSMOLALITY 277 mosm/kg (275-300); CALCIUM 7.6 mg/dL (8.5-10.1); CARBON DIOXIDE 30.6 mmol/L (21.0-32.0); CHLORIDE - SERUM 102 mmol/L (98-107); CREATININE - SERUM 0.6 mg/dL (0.6-1.3); GLUCOSE 120 mg/dL (74-106); MAGNESIUM - SERUM 1.7 mg/dL (1.8-2.4); POTASSIUM - SERUM 3.3 mmol/L (3.5-5.1); SODIUM 139 mmol/L (136-145); UREA NITROGEN 10 mg/dL (7-18); eGFR NON AFRICAN AMERICAN > 90 mL/min (90-120)
[2019-11-08 06:13] LABS: PHOSPHOROUS 1.9 mg/dL (2.5-4.9)
--- NOTE | 2019-11-08 07:00 | NUR ---
BEDSIDE REPORT RECEIVED. SHIFT ASSESSMENT COMPLETED PER FLOWSHEET, SEE FLOWSHEET FOR INFORMATION. NO ACUTE NEEDS OR DISTRESS NOTED AT THIS TIME, PT ON BIPAP AT THIS TIME. WILL CONT TO MONITOR.
--- NOTE | 2019-11-08 08:00 | NUR ---
TOOK PT OFF BIPAP AND PUT HIM ON HIGH FLOW NC AT 5L. WILL CONT TO MONITOR.
--- NOTE | 2019-11-08 09:00 | NUR ---
0900 MEDICATIONS GIVEN. NO ACUTE NEEDS OR DISTRESS NOTED AT THIS TIME. WILL CONT TO MONITOR.
--- NOTE | 2019-11-08 11:00 | NUR ---
REASSESSMENT COMPLETED PER FLOWSHEET, SEE FLOWSHEET FOR INFORMATION. REPOSITIONED PER COMFORT. PT HAS CALL LIGHT IN HIS HAND, WATCHING A MOVIE. NO ACUTE NEEDS OR DISTRESS NOTED AT THIS TIME. VSS. WILL CONT TO MONITOR. AT BEDSIDE.
--- NOTE | 2019-11-08 12:48 | NUR ---
AT BEDSIDE. WILL CONT TO MONITOR.
--- NOTE | 2019-11-08 13:00 | NUR ---
REPOSITIONED OER COMFORT. PT IN BED RESTING WITH EYES CLOSED. PUT ON BIPAP 35%, O2 SAT 100%. WILL CONT TO MONITOR.
--- NOTE | 2019-11-08 15:00 | NUR ---
REASSESSMENT COMPLETED PER FLOWSHEET, SEE FLOWSHEET FOR INFORMATION. SPEECH PATHOLOGIST AT BEDSIDE, NO NEW ORDERS RECEIVED. NO ACUTE NEEDS OR DISTRESS NOTED AT THIS TIME. VSS. WILL CONT TO MONITOR.
--- NOTE | 2019-11-08 17:00 | NUR ---
REPOSTIONED PER COMFORT. NO ACUTE NEEDS OR DISTRESS NOTED AT THIS TIME. WILL CONT TO MONITOR.
--- NOTE | 2019-11-08 19:00 | NUR ---
REPORT RECEIVED SEE ASSESSMENT CM READING SR ALARMS ON AND AUDIBLE
--- NOTE | 2019-11-08 23:00 | NUR ---
REASSESMENT COMPLETE ORAL CARE REPOSITIONED CPOC
[2019-11-09] VITALS (24 sets, daily range): BP systolic 109–164; BP diastolic 73–100
--- NOTE | 2019-11-09 01:00 | NUR ---
PT RESTING WITH EYES CLOSED NO DISTRESS NOTED
--- NOTE | 2019-11-09 03:00 | NUR ---
REASSESSMENT COMPLETE NO CHANGES CM CONTINUES SR CPOC WILL MONITOR
[2019-11-09 05:53] LABS: BASOPHILS 0.2 % (0-2); EOSINOPHILS 1.4 % (0-7); HEMATOCRIT 33.8 % (42.0-54.0); HEMOGLOBIN 10.8 g/dL (13.5-17.5); IMMATURE GRANULOCYTES 0.2 % (0-5); LYMPHOCYTES 18.2 % (15-50); MCH 27.9 pg (26.0-34.0); MCV 87.3 fL (80.0-100.0); MEAN PLATELET VOLUME 9.7 fL (7.4-10.4); MONOCYTES 6.6 % (2-11); NEUTROPHILS 73.4 % (40-80); PLATELET COUNT 110 10x3/uL (130-400); RBC 3.87 10x6/uL (4.20-6.10); RDW 15.6 % (11.5-14.5); WBC 4.9 10x3/uL (4.8-10.8)
[2019-11-09 06:41] LABS: ALBUMIN 1.9 g/dL (3.4-5.0); ALKALINE PHOSPHATASE 58 U/L (30-120); ALT (SGPT) 22 U/L (10-68); CALC OSMOLALITY 279 mosm/kg (275-300); CALCIUM 8.1 mg/dL (8.5-10.1); CARBON DIOXIDE 32.5 mmol/L (21.0-32.0); CHLORIDE - SERUM 105 mmol/L (98-107); CREATININE - SERUM 0.6 mg/dL (0.6-1.3); GLUCOSE 133 mg/dL (74-106); POTASSIUM - SERUM 3.5 mmol/L (3.5-5.1); PRE-ALBUMIN 17.8 mg/dL (18.0-35.7); PROTEIN - SERUM 4.9 g/dL (6.4-8.2); SODIUM 139 mmol/L (136-145); eGFR NON AFRICAN AMERICAN > 90 mL/min (90-120)
[2019-11-09 06:42] LABS: UREA NITROGEN 13 mg/dL (7-18)
--- NOTE | 2019-11-09 07:15 | NUR ---
REPORT RECEIVED. PT ON DROPLET PRECAUTIONS. PT IS ON 40% BIPAP. HE HAS A LEFT SUBCLAVIAN CENTRAL LINE AND A LEFT UPPER ARM MIDLINE. HE HAS NS AND PROCAL INFUSING. HE HAS A GEORGE AND A COLOSTOMY. HE IS STRICT NPO D/T FAILING HIS SWALLOW EVAL. VSS. WILL CONTINUE TO MONITOR.
--- NOTE | 2019-11-09 09:45 | NUR ---
Nutrition follow-up: Pt extubated 11/06 NPO continues at this time ProcalAmine PPN @ 50 ml/hr Labs reviewed BIPAP on this am Recommend swallow eval to determine if safe for po intake. RDN following.
--- NOTE | 2019-11-09 11:15 | NUR ---
PT REPOSITIONED. VSS. WILL CONTINUE TO MONITOR.
--- NOTE | 2019-11-09 12:30 | NUR ---
VANC DOSE HELD PER TROUGH LEVEL.
--- NOTE | 2019-11-09 15:39 | NUR ---
PT RESTING QUIETLY. REPOSITIONED ON AIR MATTRESS.
--- NOTE | 2019-11-09 19:49 | NUR ---
RECEIVED IN BED, RESTING WITH EYES CLOSED. NO SIGNS OF DISTRESS. IV INFUSING. GEORGE INTACT. DENIES PAIN AT THIS TIME. CALL LIGHT IN REACH. CONTINUE TO MONITOR.
--- NOTE | 2019-11-09 23:02 | NUR ---
REPOSITIONED IN BED TO RIGHT SIDE. DENIES PAIN OR NEEDS AT THIS TIME. CALL LIGHT IN REACH. CONTINUE TO MONITOR.
--- NOTE | 2019-11-09 23:51 | NUR ---
RESTING EYES CLOSED. NO SIGNS OF DISTRESS. CALL LIGHT IN REACH. CONTINUE TO MONITOR.
[2019-11-10] VITALS (12 sets, daily range): BP systolic 128–166; BP diastolic 79–128
--- NOTE | 2019-11-10 00:47 | NUR ---
RESTING EYES CLOSED. REPOSITION TO LEFT SIDE. NO SIGNS OF DISTRESS
--- NOTE | 2019-11-10 04:16 | NUR ---
RESTING EYES CLOSED. REPOSITION TO BACK. NO SIGNS OF DISTRESS.
--- NOTE | 2019-11-10 05:00 | NUR ---
PLACED SCD ON PATIENT AFTER ASSIST TO BEDSIDE. SMALL BM.
--- NOTE | 2019-11-10 05:11 | NUR ---
RESTING IN BED WITH EYES CLOSED. REPOSITION TO LEFT SIDE. NO SIGNS OF DISTRESS
[2019-11-10 07:13] LABS: FUNGUS CULTURE RESULT 1 Candida albicans (()); FUNGUS MYCOLOGY CULTURE Preliminary report (())
--- NOTE | 2019-11-10 13:27 | NUR ---
Nutrition consult: NG tube placed for nutrition support 2/2 pt not safe at this time for po intake. Labs reviewed RDN will order Osmolite 1.5 christine to start @ 25 ml/hr with gradual increase to goal rate of 60 ml/hr with 125 ml H2O flush q 4 hours. THank you for the consult. RDN following.
--- NOTE | 2019-11-10 17:39 | NUR ---
OT NOTE: PT REQUIRED MAX A FOR SUPINE TO SIT. PT REQUIRED MAX A FOR POSITIONING TO DECREASE RISK OF SKIN BREAKDOWN. PT COMPLETED FACE HYGIENE WITH MAX A. [id number] THANK YOU,LUCILA LAI
--- NOTE | 2019-11-10 18:31 | NUR ---
RECEIVED PATIENT FROM ICU. ALERT AND ORIENTED X2. ON 2L O2, NC. LEFT SUBCLAVIAN, NS INFUSING @ 30ML/HR AND PROCAL INFUSING @ 50ML/HR. SITE PATENT WITHOUT REDNESS OR SWELLING. NG TUBE TO RIGHT NARE, FEEDING @ 20ML/HR. 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 NO C/O PAIN. NO S/S OF ACUTE DISTRESS NOTED. ON 1ST STEP-OVERLAY MATTRESS. SCDS PRESENT NOT ON. GEORGE CATHETER PRESENT. STAGE 4 PRESSURE ULCER TO COCCYX. COLOSTOMY MIDLINE ABDOMEN. FSBS Q6 HOURS. UP WITH PHYSICAL THERAPY. DENIES ANY NEEDS AT THIS TIME. CALL LIGHT IN REACH. WILL CONTINUE TO MONITOR.
--- NOTE | 2019-11-10 19:00 | NUR ---
BEDSIDE REPORT RECEIVED AND CARE OF PT ASSUMED. PT LYING IN LOW SETH'S POSITION ON 1ST STEP AIR MATTRESS OVERLAY. LEFT SUBCLAVIAN CENTRAL LINE PATENT WITH PROCALAMINE INFUSING AT 50 ML/HR AND NS INFUSING AT 30 ML/HR. GEORGE CATHETER DRAINING TO GRAVITY WITH YELLOW URINE IN COLLECTION BAG. COLOSTOMY PATENT WITH PINK STOMA, AND BROWN LIQUID STOOL IN COLLECTION BAG. O2 IN USE VIA NC AT 2L. WILL MONITOR FOR NEEDS.
--- NOTE | 2019-11-10 19:46 | MORECARE ---
CASE MANAGEMENT DISCHARGE SUMMARY PATIENT: ROOSEVELT AGUSTIN UNIT: [id number] ADM DATE: 10/19/19 AGE: 64 : 51 SEX: M ROOM/BED: D.2238 AUTHOR: CROW,DOC PHYSICIAN: REFERRING PHYSICIAN: MONTANA DOZIER MD DATE OF SERVICE: 11/10/19 Discharge Plan Patient Name: ROOSEVELT AGUSTIN [facility] [facility] 1955 Planned Disposition: SNF w Planned Readmission Anticipated Discharge Date: 10/23/19 Discharge Date: Expected LOS: 4 Initial Reviewer: [email or web address] Initial Review Date: 10/19/2019 Generated: 11/10/19 8:45 pm Comments DCP- Discharge Planning Updated by [email or web address]: Joanna Del Valle on 11/10/19 6:[address] FAXED UPDATE TO [facility] DCP- Discharge Planning Updated by [id number]: Joanna Del Valle on 11/06/19 2:[address] CM received a call from Carlos Agustin (brother) [phone] and it was noted that Peyman Agustin (brother) that is listed as contact is in [facility] and is not capable of making decision. Carlos states that he will make decisions for patient if needed. CM will continue to follow and assist as needed with discharge planning / needs. DCP- Discharge Planning Updated by [id number]: Joanna Del Valle on 11/05/19 6:[address] CM was finally able to get in touch with patient's friend that is listed as an emergency contact Reena Pedroza [phone]. Also have a listing for Eladio Pedroza [phone]. Reena stated that the patient's brother Peyman is also in the hospital that is why we have not been able to get in touch with him. [facility] Reena stated that it was in the works prior to patient coming back into hospital to come and live with them. The plan [facility] then [facility] in with them. STARLA asked if they had POA and she stated "No they hadn't got that far yet." Reena asked if the doctor had done the procedure they had called her earlier to get consent. CM stated "yes" and explained again as to what the bronchoscopy was. Reena stated that [place] has been part of their family for a long time. CM explained that we would be getting back in touch with her at a later date. CM will continue to follow and assist as needed with discharge planning / needs. DCP- Discharge Planning Updated by [email or web address]: Joanna Del Valle on 11/03/19 5:[address] CM attempted to contact patient's brother listed as a contact Peyman Agustin. No voicemail set up and no answer. CM contacted [facility] and they are still planning on accepting patient back unless he has to be trached then it would need to be at least 30 days old. They do not accept vent patients just trach collar. CM spoke with them regarding contacts and the only listings they had was two friends. CM will continue to follow and assist in discharge planning / needs. DCP- Discharge Planning Updated by [email or web address]: Ericka Basurto on 10/19/19 12:[address] [facility] ANTICIPATED DC NEEDS: Transportation back to [place]. CM met with patient who is intubated and unable to answer questions. CM noted on his chart he is from [facility]. CM called [facility], spoke to Ligia SANCHEZ, who reported the patient is a resident at their facility. He is usually Alert and Oriented x 3. He is wheelchair bound. He uses O2 2L at all times. At discharge patient will return to [facility]. CM will continue to follow and will assist as needed with dc plans/needs. Ericka Basurto RN, [facility] DCPIA - Discharge Planning Initial Assessment Updated by [id number]: Ericka Basurto on 10/19/19 1:23 pm * Is the patient Alert and Oriented? Yes * How many steps to enter\\exit or inside your home? None * PCP Dr. Hussein Perry * Pharmacy [facility] * Preadmission Environment [facility] * Facility Name [facility] - Resident there. * ADLs Partial Dependent * Partial ADLs (Assistance needed) Ambulation Medication Management Transfers * Equipment Oxygen Wheelchair * List name and contact numbers for known caregivers / representatives who currently or will assist patient after discharge: Eladio Pedroza - friend [phone] Reena Pedroza - friend [phone] * Verbal permission to speak to the caregivers and representatives has been obtained from the patient. Yes * Community resources currently utilized None * Additional services required to return to the preadmission environment? No * Can the patient safely return to the preadmission environment? Yes * Has this patient been hospitalized within the prior 30 days at any hospital? No External Providers External Provider: [facility] Next Contact Date: Service Request Date: Service Type: Resolution: Reviewer: Comments: Last DP export: 11/06/19 2:20 p Patient Name: ROOSEVELT AGUSTIN Page [id number] at 1946 All edits/amendments must be made on the electronic document DICTATION DATE: 11/10/191944 AIRCRAFT STRUCTURAL REPAIR MECHANIC: HIEN 11/10/191944 RPT#: [id number] DC DATE: STATUS: ADM IN [facility] [address] [place] [address] END OF REPORT
--- NOTE | 2019-11-10 21:16 | NUR ---
HS MEDICATIONS GIVEN. RT PLACED PT ON BIPAP. WILL CONTINUE TO MONITOR FOR NEEDS.
[2019-11-11] VITALS: BP 115/74
--- NOTE | 2019-11-11 01:45 | NUR ---
CHANGED OUT ALL TUBING. EMPTIED COLOSTOMY BAG. EMPTIED GEORGE BAG. RE-POSITIONED PT FOR COMFORT.
--- NOTE | 2019-11-11 03:00 | NUR ---
INCREASED TUBE FEEDING RATE TO 30 ML/HR...8 HOURS AFTER TRANSFER. WILL INCREASE EVERY 8 HOURS TO GOAL OF 60 ML/HR PER ORDER.
--- NOTE | 2019-11-11 03:34 | NUR ---
PT BATHED AND ALL LINENS AND GOWN CHANGED. CLEANSED DECUBITIS ULCERATION TO COCCYX WITH WOUND AIRPORT SHUTTLE DRIVER AND PLACED A NEW MEPILEX HEART OVER WOUND. PT HAS 8 CM IN DIAMETER WOUND...DARK PURPLE / BLACK SURROUNDED WITH REDDENED AREA ON COCCYX. TURNED PT TO RIGHT SIDE USING WEDGE TO TAKE PRESSURE OFF WOUND. BREEZY CONTINUE TO MONITOR FOR NEEDS.
--- NOTE | 2019-11-11 03:50 | NUR ---
CHANGED OUT FEEDING TUBING SET AND DATED. PLACED 240 ML OSMOLITE 1.5 ML IN FEEDING BAG. FLUSH BAG FILLED WITH WATER. PT AT 30 DEGREES. CONTINUED FEEDING AT 20 ML/HR.
[2019-11-11 04:00] VITALS: BP 139/97
--- NOTE | 2019-11-11 07:10 | NUR ---
PT RESTING IN BED. NO SIGNS OF DISTRESS. IV TO LEFT SUBCLAVIAN PATENT NO REDNESS RO TENDERNESS. ON 2L NC ON BIPAP AT THIS TIME. NG TUBE TO RIGHT NARE. COLOSTOMY TO LEFT SIDE. ON DROPLET ISO. HAS GEORGE NO KINKS PATENT. DENIES ANY FURTHER NEED AT THIS TIME. CALL LIGHT IN REACH. BED LOW POSTIION. NO FAMILY AT BEDSIDE AT THIS TIME.
[2019-11-11 08:04] VITALS: BP 129/73
[2019-11-11 13:16] VITALS: BP 134/76
--- NOTE | 2019-11-11 15:38 | NUR ---
OT NOTE: MAX ASSIST WITH BED MOB; MAX X 2 FOR SUPINE TO SIT; MOD ASSIST FOR STATIC SITTING; A/AROM EXS. PT VERY WEAK REQUIRES FREQ REST BREAKS. JESSICA BROWER, OTR/L [phone]
[2019-11-11 15:59] VITALS: BP 110/77
[2019-11-11 17:07] LABS: BASOPHILS 0 % (0-2); EOSINOPHILS 2.7 % (0-7); HEMATOCRIT 36.8 % (42.0-54.0); HEMOGLOBIN 11.8 g/dL (13.5-17.5); IMMATURE GRANULOCYTES 0.2 % (0-5); LYMPHOCYTES 13.7 % (15-50); MCH 28.4 pg (26.0-34.0); MCHC 32.1 g/dL (31.0-37.0); MCV 88.5 fL (80.0-100.0); MEAN PLATELET VOLUME 10.2 fL (7.4-10.4); NEUTROPHILS 76.4 % (40-80); RBC 4.16 10x6/uL (4.20-6.10); RDW 15.5 % (11.5-14.5); WBC 5.3 10x3/uL (4.8-10.8)
[2019-11-11 17:10] LABS: PLATELET COUNT 134 10x3/uL (130-400)
[2019-11-11 17:11] LABS: CALC OSMOLALITY 281 mosm/kg (275-300); CALCIUM 7.5 mg/dL (8.5-10.1); CHLORIDE - SERUM 102 mmol/L (98-107); CREATININE - SERUM 0.5 mg/dL (0.6-1.3); POTASSIUM - SERUM 3.2 mmol/L (3.5-5.1); SODIUM 139 mmol/L (136-145); UREA NITROGEN 10 mg/dL (7-18); eGFR NON AFRICAN AMERICAN > 90 mL/min (90-120)
[2019-11-11 17:22] LABS: GLUCOSE 188 mg/dL (74-106)
[2019-11-11 17:25] LABS: MAGNESIUM - SERUM 1.7 mg/dL (1.8-2.4)
--- NOTE | 2019-11-11 19:22 | NUR ---
OT NOTE: PT COMPLETED FACE WASH WITH MOD A. PT COMPLETED BUE AAROM EXS. PT REQUIRED MAX X2 FOR SUPINE TO SIT. PT REQUIRED MAX A X2 FOR SIT TO SUPINE. PT REQUIRED MAX WITH LE MANAGEMENT. PT REQUIRED MAX A FOR BED MOB TASKS. PT REQUIRED MAX A FOR POSITIONING TO DECREASE RISK OF SKIN BREAKDOWN. [phone] THANK YOU,LUCILA LAI
--- NOTE | 2019-11-11 19:35 | NUR ---
I have reviewed this patient and I concur with the Shift Assessment completed by the Licensed Practical Nurse today this shift.
[2019-11-11 21:15] VITALS: BP 142/81
[2019-11-12 01:44] VITALS: BP 130/90
[2019-11-12 06:01] LABS: BASOPHILS 0.2 % (0-2); EOSINOPHILS 3.2 % (0-7); HEMATOCRIT 35.2 % (42.0-54.0); HEMOGLOBIN 11.1 g/dL (13.5-17.5); IMMATURE GRANULOCYTES 0.2 % (0-5); LYMPHOCYTES 15.7 % (15-50); MCH 27.8 pg (26.0-34.0); MCHC 31.5 g/dL (31.0-37.0); MEAN PLATELET VOLUME 10.3 fL (7.4-10.4); MONOCYTES 6.5 % (2-11); NEUTROPHILS 74.2 % (40-80); PLATELET COUNT 124 10x3/uL (130-400); RDW 15.4 % (11.5-14.5); WBC 5.3 10x3/uL (4.8-10.8)
[2019-11-12 06:23] LABS: CALC OSMOLALITY 285 mosm/kg (275-300); CALCIUM 7.8 mg/dL (8.5-10.1); CARBON DIOXIDE 36.2 mmol/L (21.0-32.0); CHLORIDE - SERUM 103 mmol/L (98-107); CREATININE - SERUM 0.6 mg/dL (0.6-1.3); GLUCOSE 213 mg/dL (74-106); MAGNESIUM - SERUM 1.7 mg/dL (1.8-2.4); PHOSPHOROUS 1.9 mg/dL (2.5-4.9); SODIUM 141 mmol/L (136-145); UREA NITROGEN 9 mg/dL (7-18); eGFR NON AFRICAN AMERICAN > 90 mL/min (90-120)
[2019-11-12 06:48] VITALS: BP 128/82
--- NOTE | 2019-11-12 07:05 | NUR ---
CONFUSED AT TIMES, VERY SOFT SPOKEN. RESTING IN BED WITH EYES OPEN. NO C/O PAIN. NO S/S OF ACUTE DISTRESS NOTED. 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 GEORGE CATHETER PRESENT. COLOSTOMY TO LUQ. STAGE 4 PRESSURE ULCER TO COCCYX, MEPILEX C/D/I. ON CONTINUOUS PULSE OX 92% ON 2L NC. LEFT SUBCLAVIAN, SL. LEFT UPPER ARM MIDLINE, NS INFUSING @ 30ML/HR. SITE PATENT WITHOUT REDNESS OR SWELLING. NG TUBE TO RIGHT NARE, OSMOLITE 1.5 @ 60ML/HR. ON TELEMETRY SR 96 WITH PACS. POTASSIUM 2.8 THIS AM, NOTIFIED LUCÍA SAAVEDRA APRN, WILL FOLLOW ELECTROLYTE PROTOCOL. SCDS ON. DENIES ANY NEEDS AT THIS TIME. CALL LIGHT IN REACH. WILL CONTINUE TO MONITOR.
[2019-11-12 07:24] LABS: POTASSIUM - SERUM 2.8 mmol/L (3.5-5.1)
[2019-11-12 09:01] VITALS: BP 131/84
--- NOTE | 2019-11-12 11:23 | NUR ---
LEFT SUBCLAVIAN DISCONTINUED PER MD ORDERS. CATH INTACT. PRESSURE HELD TO SITE X 5 MINUTES. NO BLEEDING OR DRAINAGE NOTED FROM SITE. 2X2'S TAPED INTO PLACE.
[2019-11-12 13:12] VITALS: BP 122/87
--- NOTE | 2019-11-12 13:47 | NUR ---
NUTRITION F/U CHART REVIEWED, PT REMAINS IN ISOLATION. CURRENTLY SLEEPING. OSMOLITE 1.5 HUMBERTO AT GOAL RATE 60 CC/HR. PROCALAMINE SANDRA'D. WILL CONTINUE TO PROVIDE TUBE FEEDS, MONITOR PT PROGRESS. RD FOLLOWING
[2019-11-12 16:44] VITALS: BP 132/80
--- NOTE | 2019-11-12 17:33 | NUR ---
DISCONTINUED NG TUBE TO RIGHT NARE PER PHYSICIAN ORDERS.
--- NOTE | 2019-11-12 17:36 | NUR ---
I have reviewed this patient and I concur with the Shift Assessment completed by the Licensed Practical Nurse today this shift.
--- NOTE | 2019-11-12 18:43 | NUR ---
OT NOTE: PT ALERT IN PM. ASSISTED PT WITH BED MOB WITH MAX ASSIST. ST ALSO AT BEDSIDE TO PERFORM BS SWALLOW EVAL. PT WITH SEVERAL ATTEMPTS TO FEED SELF, HOWEVER, HAD DIFFICULTY DUE TO NG TUBE IN THE WAY. PT PERFORMED WELL WITH ORAL INTAKE EXCLUDING THIN LIQUIDS. PT ABLE TO WASH FACE AND HANDS WITH CLOTH AND MIN ASSIST. MADE SEVERAL ATTEMPTS TO ASSIST WITH REPOSITIONING UP IN BED BUT REUQIRED MAX ASSIST. JESSICA BROWER, OTR/L [phone]
--- NOTE | 2019-11-12 19:23 | NUR ---
RESTING IN BED. DENIES ANY NEEDS AT THIS TIME. CALL LIGHT IN REACH. WILL CONTINUE TO MONITOR.
[2019-11-12 20:00] VITALS: BP 135/84
[2019-11-13] VITALS: BP 119/77
--- NOTE | 2019-11-13 03:23 | NUR ---
REMAINS ON DROPLET ISOLATION FOR MRSA IN SPUTIM. O2 AT 2L VIA N/C AND BIPAP AT NIGHT. TRUNED FOR PRESSER RELIFE AND COMFORT. LEFT UPPER ARM MIDLINE. WITH NS AT 30ML/HR. SCD'D IN PLACE. MEPLEX TO BOTTOM CDI. TELEMERTY IN PLACE. FSBS EVERY SIX HOURS PER ORDERS WITH S/S.F/C IN PLACE AND PATEN WITH YELLOW URINE TO BAG. CLOSTOMY IN PLACE WITH STOOL TO BAG ON LEFT SIDE.
--- NOTE | 2019-11-13 07:05 | NUR ---
RESTING IN BED WITH BIPAP ON. NO C/O PAIN. NO S/S OF ACUTE DISTRESS NOTED. 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 ON 2L O2, NC. CRACKLES ASCULTATED ALL LOBES. ON CONTINUOUS PULSE OX. MIDLINE TO LEFT UPPER ARM, NS INFUSING @ 30ML/HR. SITE PATENT WITHOUT REDNESS OR SWELLING. COLOSTOMY TO LUQ. GEORGE CATHETER PRESENT. ON 1ST STEP OVERLAY MATTRESS. SCDS PRESENT. CRUSH MEDS. STAGE 4 PRESSURE ULCER TO COCCYX, MEPILEX DRESSING C/D/I. DENIES ANY NEEDS AT THIS TIME. CALL LIGHT IN REACH. WILL CONTINUE TO MONITOR.
[2019-11-13 08:11] VITALS: BP 138/87
[2019-11-13 08:41] VITALS: BP 129/87
[2019-11-13 09:35] LABS: BASOPHILS 0.2 % (0-2); EOSINOPHILS 4.2 % (0-7); HEMOGLOBIN 11.8 g/dL (13.5-17.5); IMMATURE GRANULOCYTES 0.2 % (0-5); LYMPHOCYTES 13.6 % (15-50); MCH 28.2 pg (26.0-34.0); MCHC 31.9 g/dL (31.0-37.0); MCV 88.3 fL (80.0-100.0); MEAN PLATELET VOLUME 10.7 fL (7.4-10.4); MONOCYTES 5.7 % (2-11); NEUTROPHILS 76.1 % (40-80); PLATELET COUNT 129 10x3/uL (130-400); RBC 4.19 10x6/uL (4.20-6.10); RDW 15.9 % (11.5-14.5); WBC 5.3 10x3/uL (4.8-10.8)
[2019-11-13 09:55] LABS: CALCIUM 8.2 mg/dL (8.5-10.1); CARBON DIOXIDE 35.4 mmol/L (21.0-32.0); CHLORIDE - SERUM 102 mmol/L (98-107); CREATININE - SERUM 0.6 mg/dL (0.6-1.3); MAGNESIUM - SERUM 1.6 mg/dL (1.8-2.4); PHOSPHOROUS 1.8 mg/dL (2.5-4.9); POTASSIUM - SERUM 3.2 mmol/L (3.5-5.1); SODIUM 140 mmol/L (136-145); eGFR NON AFRICAN AMERICAN > 90 mL/min (90-120)
[2019-11-13 09:56] LABS: CALC OSMOLALITY 280 mosm/kg (275-300); GLUCOSE 165 mg/dL (74-106); UREA NITROGEN 6 mg/dL (7-18)
--- NOTE | 2019-11-13 10:15 | MORECARE ---
CASE MANAGEMENT DISCHARGE SUMMARY PATIENT: ROOSEVELT AGUSTIN UNIT: [id number] ADM DATE: 10/19/19 AGE: 64 : 53 SEX: M ROOM/BED: D.2238 AUTHOR: CROW,DOC PHYSICIAN: REFERRING PHYSICIAN: MONTANA DOZIER MD DATE OF SERVICE: 11/13/19 Discharge Plan Patient Name: ROOSEVELT AGUSTIN [facility] [facility] 1955 Planned Disposition: SNF w Planned Readmission Anticipated Discharge Date: 10/23/19 Discharge Date: Expected LOS: 4 Initial Reviewer: [email or web address] Initial Review Date: 10/19/2019 Generated: 11/13/19 11:14 am Comments DCP- Discharge Planning Updated by [email or web address]: Unique Carrillo on 11/13/19 9:[address] Updated clinical faxed to [facility]. DCP- Discharge Planning Updated by [email or web address]: Joanna Del Valle on 11/10/19 6:[address] FAXED UPDATE TO [facility] DCP- Discharge Planning Updated by [id number]: Joanna Eligio on 11/06/19 2:[address] CM received a call from Carlos Agustin (brother) [phone] and it was noted that Peyman Agustin (brother) that is listed as contact is in [facility] and is not capable of making decision. Carlos states that he will make decisions for patient if needed. CM will continue to follow and assist as needed with discharge planning / needs. DCP- Discharge Planning Updated by [id number]: Joanna Del Valle on 11/05/19 6:[address] CM was finally able to get in touch with patient's friend that is listed as an emergency contact Reena Pedroza [phone]. Also have a listing for Eladio Pedroza [phone]. Reena stated that the patient's brother Peyman is also in the hospital that is why we have not been able to get in touch with him. (unknown hospital) Reena stated that it was in the works prior to patient coming back into hospital to come and live with them. The plan was for him to build up his strength at [facility] then move in with them. STARLA asked if they had POA and she stated "No they hadn't got that far yet." Reena asked if the doctor had done the procedure they had called her earlier to get consent. CM stated "yes" and explained again as to what the bronchoscopy was. Reena stated that Roosevelt has been part of their family for a long time. CM explained that we would be getting back in touch with her at a later date. CM will continue to follow and assist as needed with discharge planning / needs. DCP- Discharge Planning Updated by [email or web address]: Joanna Del Valle on 11/03/19 5:[address] CM attempted to contact patient's brother listed as a contact Peyman Agustin. No voicemail set up and no answer. CM contacted [facility] and they are still planning on accepting patient back unless he has to be trached then it would need to be at least 30 days old. They do not accept vent patients just trach collar. CM spoke with them regarding contacts and the only listings they had was two friends. CM will continue to follow and assist in discharge planning / needs. DCP- Discharge Planning Updated by [email or web address]: Ericka Basurto on 10/19/19 12:[address] DC PLAN: Resident at [facility] ANTICIPATED DC NEEDS: Transportation back to [place]. CM met with patient who is intubated and unable to answer questions. CM noted on his chart he is from [facility]. CM called [facility], spoke to Ligia SANCHEZ, who reported the patient is a resident at their facility. He is usually Alert and Oriented x 3. He is wheelchair bound. He uses O2 2L at all times. At discharge patient will return to [facility]. CM will continue to follow and will assist as needed with dc plans/needs. Ericka Basurto RN, [facility] DCPIA - Discharge Planning Initial Assessment Updated by [id number]: Ericka Basurto on 10/19/19 1:23 pm * Is the patient Alert and Oriented? Yes * How many steps to enter\\exit or inside your home? None * PCP Dr. Hussein Perry * Pharmacy [facility] * Preadmission Environment [employer] * Facility Name [facility] - Resident there. * ADLs Partial Dependent * Partial ADLs (Assistance needed) Ambulation Medication Management Transfers * Equipment Oxygen Wheelchair * List name and contact numbers for known caregivers / representatives who currently or will assist patient after discharge: Eladio Pedroza - friend [phone] Reena Pedroza - friend [phone] * Verbal permission to speak to the caregivers and representatives has been obtained from the patient. Yes * Community resources currently utilized None * Additional services required to return to the preadmission environment? No * Can the patient safely return to the preadmission environment? Yes * Has this patient been hospitalized within the prior 30 days at any hospital? No Last DP export: 11/10/19 6:46 p Patient Name: ROOSEVELT AGUSTIN Page [id number] at 1015 All edits/amendments must be made on the electronic document DICTATION DATE: 11/13/19 1014 WHIRLEY OPERATOR: HIEN 11/13/19 1014 RPT#: [id number] DC DATE: STATUS: ADM IN [facility] [address] [place] [address] END OF REPORT
--- NOTE | 2019-11-13 11:51 | MORECARE ---
CASE MANAGEMENT DISCHARGE SUMMARY PATIENT: ROOSEVELT AGUSTIN UNIT: [id number] ADM DATE: 10/19/19 AGE: 64 : 53 SEX: M ROOM/BED: D.2238 AUTHOR: CROW,DOC PHYSICIAN: REFERRING PHYSICIAN: MONTANA DOZIER MD DATE OF SERVICE: 11/13/19 Discharge Plan Patient Name: ROOSEVELT AGUSTIN Facility: [facility]:[place] : 1955 Planned Disposition: SNF w Planned Readmission Anticipated Discharge Date: 10/23/19 Discharge Date: Expected LOS: 4 Initial Reviewer: [email or web address] Initial Review Date: 10/19/2019 Generated: 11/13/19 12:51 pm Comments DCP- Discharge Planning Updated by [id number]: Unique Carrillo on 11/13/19 10:[address] Spoke with Maggie at [facility]. She states they will get a BIPAP for use at facility. States patient states he does have one for home. They will accept patient when medically ready for discharge/tentative plan for Saturday. CM will continue to follow and assist with discharge planning/needs. [facility] - [phone] (Maggie) DCP- Discharge Planning Updated by [email or web address]: Unique Carrillo on 11/13/19 9:[address] Updated clinical faxed to [facility]. DCP- Discharge Planning Updated by [id number]: Joanna Del Valle on 11/10/19 6:[address] FAXED UPDATE TO [facility] DCP- Discharge Planning Updated by [email or web address]: Joanna Del Valle on 11/06/19 2:[address] CM received a call from Carlos Agustin (brother) [phone] and it was noted that Peyman Hernándezson (brother) that is listed as contact is in [facility] and is not capable of making decision. Carlos states that he will make decisions for patient if needed. CM will continue to follow and assist as needed with discharge planning / needs. DCP- Discharge Planning Updated by [email or web address]: Joanna Del Valle on 11/05/19 6:[address] CM was finally able to get in touch with patient's friend that is listed as an emergency contact Reena Pedroza [phone]. Also have a listing for Eladio Pedrzoa [phone]. Reena stated that the patient's brother Peyman is also in the hospital that is why we have not been able to get in touch with him. (unknown hospital) Reena stated that it was in the works prior to patient coming back into hospital to come and live with them. The plan was for him to [facility] then move in with them. STARLA asked if they had POA and she stated "No they hadn't got that far yet." Reena asked if the doctor had done the procedure they had called her earlier to get consent. CM stated "yes" and explained again as to what the bronchoscopy was. Reena stated that Roosevelt has been part of their family for a long time. CM explained that we would be getting back in touch with her at a later date. CM will continue to follow and assist as needed with discharge planning / needs. DCP- Discharge Planning Updated by [id number]: Joanna Del Valle on 11/03/19 5:[address] CM attempted to contact patient's brother listed as a contact Peyman Agustin. No voicemail set up and no answer. CM contacted [facility] and they are still planning on accepting patient back unless he has to be trached then it would need to be at least 30 days old. They do not accept vent patients just trach collar. CM spoke with them regarding contacts and the only listings they had was two friends. CM will continue to follow and assist in discharge planning / needs. DCP- Discharge Planning Updated by [id number]: Ericka Basurto on 10/19/19 12:[address] DC PLAN: Resident at [facility] ANTICIPATED DC NEEDS: Transportation back to [place]. CM met with patient who is intubated and unable to answer questions. CM noted on his chart he is from [facility]. CM called [facility], spoke to Ligia SANCHEZ, who reported the patient is a resident at their facility. He is usually Alert and Oriented x 3. He is wheelchair bound. He uses O2 2L at all times. At discharge patient will return to [facility]. CM will continue to follow and will assist as needed with dc plans/needs. Ericka Basurto RN, [facility] DCPIA - Discharge Planning Initial Assessment Updated by [id number]: Ericka Basurto on 10/19/19 1:23 pm * Is the patient Alert and Oriented? Yes * How many steps to enter\\exit or inside your home? None * PCP Dr. Hussein Perry * Pharmacy [facility] * Preadmission Environment [facility] [employer] [facility] * Facility Name [facility] - Resident there. * ADLs Partial Dependent * Partial ADLs (Assistance needed) Ambulation Medication Management Transfers * Equipment Oxygen Wheelchair * List name and contact numbers for known caregivers / representatives who currently or will assist patient after discharge: Eladio Pedroza - friend [phone] Reena Pedroza - friend [phone] * Verbal permission to speak to the caregivers and representatives has been obtained from the patient. Yes * Community resources currently utilized None * Additional services required to return to the preadmission environment? No * Can the patient safely return to the preadmission environment? Yes * Has this patient been hospitalized within the prior 30 days at any hospital? No Last DP export: 11/13/19 9:14 a Patient Name: ROOSEVELT AGUSTIN Page [id number] at 1151 All edits/amendments must be made on the electronic document DICTATION DATE: 11/13/19 1151 PHYSICIAN COMPENSATION ANALYST: HIEN 11/13/19 1151 RPT#: [id number] DC DATE: STATUS: ADM IN [facility] [address] [place] [address] END OF REPORT
[2019-11-13 13:41] VITALS: BP 126/84
[2019-11-13 16:13] VITALS: BP 120/80
--- NOTE | 2019-11-13 17:39 | NUR ---
I have reviewed this patient and I concur with the Shift Assessment completed by the Licensed Practical Nurse today this shift.
--- NOTE | 2019-11-13 18:45 | NUR ---
PATIENT TRYING TO CLIMB OUT OF BED. THIS NURSE, AIRCRAFT INSTRUMENT TESTER AND ANOTHER NURSE REPOSITIONED PATIENT IN THE BED. JAXON ALARM ON AND WORKING. NO C/O PAIN. NO S/S OF ACUTE DISTRESS NOTED. DENIES ANY NEEDS AT THIS TIME. CALL LIGHT IN REACH. WILL CONTINUE TO MONITOR.
[2019-11-13 20:00] VITALS: BP 111/79
--- NOTE | 2019-11-13 23:56 | NUR ---
HEARD BED ALARM GOING OFF. UPON ENTERING PATIENTS ROOM. FOUND PT SITTING UP ON THE FLOOR BACK AGAINST THE BED. NO VISUAL SIGNS OF INJURY. VITALS STABLE. PT STATES NOT HURTING ANYWHERE THAT HE JUST SLID OUT OF BED. PT STATES HE DID NOT HIT HIS HEAD. NO SKIN TEARS OR BRUISING PRESENT. PT STATES HE IS FINE. ALL FALL PROCAUTIONS IN PLACE. YELLOW GOWN, SOCKS, JAXON ALARM, AND YELLOW WRIST BAND. CALLED DR. WEBER CHECKS FOR 24HRS. WILL CONTINUE TO CLOSELY MONITOR. CALL LIGHT IN REACH. JAXON ALARM ON. BED RAILS UPX3.
[2019-11-14] VITALS (7 sets, daily range): BP systolic 113–130; BP diastolic 65–84
--- NOTE | 2019-11-14 00:04 | NUR ---
CALLED NEXT OF KIN WHICH IS PATIENTS BROTHER. NO ANSWER. WILL FALLOW UP.
--- NOTE | 2019-11-14 01:00 | NUR ---
PT RESTING IN BED. EYES CLOSED. SIGNS OF DISTRESS. BREATHING EVEN AND UNLABORED. JAXON ALARM ON. ALL FALL PRECAUTIONS IN PLACE. WILL CONITNUE TO MONITOR.
--- NOTE | 2019-11-14 02:15 | NUR ---
HEARD BED ALARM GOING OFF. RAN TO PATIENTS ROOM FOUND PATIENT LAYING IN THE FLOOR. I WAS IN THERE IN 2 SECONDS OF THE BED ALARM GOING OFF! PT STATES NOT HURTING ANYWHERE. LT ELBOW SKIN TEAR. NO OTHER VISABLE INJURIES. VITALS STABLE. CALLED DR REINALDO KONG LT ELBOW. AND TO DEFLATE THE 1ST STEP OVERLAY BED. CALLED NEXT OF KIN WHICH IS PATIENTS BROTHER AND ONLY PERSON OF CONTACT. NO ANSWER. ALL FALL PRECAUTIONS WERE IN PLACE. WILL CONTINUE PLAN OF CARE. CALL LIGHT IN REACH. BED RAILS UPX3.
--- NOTE | 2019-11-14 03:00 | NUR ---
I have reviewed this patient and I concur with the Shift Assessment completed by the Licensed Practical Nurse today this shift.
--- NOTE | 2019-11-14 03:16 | NUR ---
PT RESTING IN BED. EYES CLOSED. NO SIGNS OF DISTRESS. BREATHING EVEN AND UNLABORED. BED RAILS UPX3. JAXON ALARM ON. ALL FALL PRECAUTIONS IN PLACE. WILL CONTINUE TO CLOSELY MONITOR.
--- NOTE | 2019-11-14 05:40 | NUR ---
PT RESTING IN BED. EYES CLOSED. NO SIGNS OF DISTRESS. BREATHING EVEN AND UNLABORED. JAXON ALARM ON. BED RAILS UPX3. WILL CONTINUE TO MONITOR.
[2019-11-14 06:25] LABS: BASOPHILS 0.2 % (0-2); EOSINOPHILS 2.7 % (0-7); HEMATOCRIT 35.3 % (42.0-54.0); HEMOGLOBIN 11.1 g/dL (13.5-17.5); IMMATURE GRANULOCYTES 0.2 % (0-5); LYMPHOCYTES 12.9 % (15-50); MCH 27.8 pg (26.0-34.0); MCHC 31.4 g/dL (31.0-37.0); MCV 88.5 fL (80.0-100.0); MEAN PLATELET VOLUME 9.7 fL (7.4-10.4); MONOCYTES 4.8 % (2-11); NEUTROPHILS 79.2 % (40-80); PLATELET COUNT 115 10x3/uL (130-400); RBC 3.99 10x6/uL (4.20-6.10); RDW 15.8 % (11.5-14.5); WBC 5.6 10x3/uL (4.8-10.8)
[2019-11-14 06:45] LABS: CALC OSMOLALITY 285 mosm/kg (275-300); CALCIUM 8.1 mg/dL (8.5-10.1); CARBON DIOXIDE 35.6 mmol/L (21.0-32.0); CHLORIDE - SERUM 106 mmol/L (98-107); CREATININE - SERUM 0.6 mg/dL (0.6-1.3); GLUCOSE 121 mg/dL (74-106); MAGNESIUM - SERUM 1.9 mg/dL (1.8-2.4); PHOSPHOROUS 2.2 mg/dL (2.5-4.9); POTASSIUM - SERUM 3.3 mmol/L (3.5-5.1); SODIUM 144 mmol/L (136-145); UREA NITROGEN 8 mg/dL (7-18); eGFR NON AFRICAN AMERICAN > 90 mL/min (90-120)
[2019-11-15] VITALS: BP 105/73
--- NOTE | 2019-11-15 00:46 | NUR ---
RESTING IN BED , AIR MATTRESS ADJUSTED TO SOFT POSITION TO KEEP FROM BEING SO HIGH, PT KEEPS TURNING TO RIGHT SIDE WITH LEGS OVER RAILS, JAXON MAT IN PLACE AND ON, SEE SHIFT ASSESSMENT, BIPAP IN USE, CALL LIGHT IN REACH
[2019-11-15 04:00] VITALS: BP 132/85
[2019-11-15 07:06] LABS: BASOPHILS 0.2 % (0-2); EOSINOPHILS 4.6 % (0-7); HEMATOCRIT 33.7 % (42.0-54.0); HEMOGLOBIN 10.5 g/dL (13.5-17.5); IMMATURE GRANULOCYTES 0.2 % (0-5); LYMPHOCYTES 17.3 % (15-50); MCH 27.8 pg (26.0-34.0); MCHC 31.2 g/dL (31.0-37.0); MCV 89.2 fL (80.0-100.0); MEAN PLATELET VOLUME 9.8 fL (7.4-10.4); MONOCYTES 6.4 % (2-11); NEUTROPHILS 71.3 % (40-80); PLATELET COUNT 115 10x3/uL (130-400); RBC 3.78 10x6/uL (4.20-6.10); RDW 16.1 % (11.5-14.5); WBC 4.6 10x3/uL (4.8-10.8)
[2019-11-15 07:26] LABS: CALC OSMOLALITY 286 mosm/kg (275-300); CALCIUM 8.1 mg/dL (8.5-10.1); CARBON DIOXIDE 34.6 mmol/L (21.0-32.0); CHLORIDE - SERUM 105 mmol/L (98-107); CREATININE - SERUM 0.7 mg/dL (0.6-1.3); MAGNESIUM - SERUM 1.7 mg/dL (1.8-2.4); PHOSPHOROUS 2.2 mg/dL (2.5-4.9); POTASSIUM - SERUM 3.4 mmol/L (3.5-5.1); SODIUM 143 mmol/L (136-145); UREA NITROGEN 8 mg/dL (7-18); eGFR NON AFRICAN AMERICAN > 90 mL/min (90-120)
[2019-11-15 07:28] LABS: GLUCOSE 179 mg/dL (74-106)
--- NOTE | 2019-11-15 08:07 | NUR ---
PT VERY RESTLESS. REMOVED HIS BIPAP. RESPIRATORY AT BEDSIDE. JAXON MAT ON AND FUNCTIONING PROPERLY. CALL LIGHT WITHIN REACH. BED IN LOWEST POSITION. WILL CONTINUE TO MONITOR.
[2019-11-15 08:45] VITALS: BP 131/79
--- NOTE | 2019-11-15 10:18 | NUR ---
Rehab Note- Acute Inpatient Rehab prescreen order recieved. Will need to verify benefits with business office Saturday. Also the patient is currently very low level at this time, will follow to see if improvements with therapy to be able to tolerate the required 3hrs/day of therapy. Thank you for this referral! Kia Conklin RN Clinical Liaison, [facility] Rehab
[2019-11-15 12:29] VITALS: BP 141/84
--- NOTE | 2019-11-15 14:23 | NUR ---
OT NOTE: (11/13/19) PT REQUIRED MAX/TOTAL A FOR BED MOB TASKS. PT REQUIRED MAX/TOTAL FOR SUPINE TO SIT AT EOB. PT REQUIRED MAX A FOR EOB STATIC BALANCE. PT LACKS TRUNK CONTROL.PT COMPLETED BUE AAROM/PROM WHILE AT EOB. [phone] THANK YOU,LUCILA LAI
[2019-11-15 16:30] VITALS: BP 144/77
--- NOTE | 2019-11-15 17:12 | NUR ---
I have reviewed this patient and I concur with the Shift Assessment completed by the Licensed Practical Nurse today this shift.
[2019-11-15 20:00] VITALS: BP 102/62
--- NOTE | 2019-11-15 22:19 | NUR ---
PATIENT LYING IN BED WITH EYES CLOSED. BIPAP ON. MIDLINE TO LEFT UPPER ARM, KVO, DRESSING AND SWAB CAPS IN PLACE. NO SIGNS OF ACUTE DISTRESS NOTED. BED IN LOW POSITION, RAILS X2. BEDSIDE TABLE AND CALL LIGHT WITHIN REACH.
[2019-11-16] VITALS: BP 86/59
[2019-11-16 04:00] VITALS: BP 102/62
[2019-11-16 06:21] LABS: BASOPHILS 0.2 % (0-2); EOSINOPHILS 3.2 % (0-7); HEMATOCRIT 34.3 % (42.0-54.0); HEMOGLOBIN 10.4 g/dL (13.5-17.5); IMMATURE GRANULOCYTES 0.2 % (0-5); MCH 27.4 pg (26.0-34.0); MCHC 30.3 g/dL (31.0-37.0); MCV 90.3 fL (80.0-100.0); MEAN PLATELET VOLUME 9.9 fL (7.4-10.4); MONOCYTES 6.7 % (2-11); NEUTROPHILS 74.7 % (40-80); PLATELET COUNT 99 10x3/uL (130-400); RDW 16.4 % (11.5-14.5)
[2019-11-16 06:48] LABS: CALC OSMOLALITY 291 mosm/kg (275-300); CARBON DIOXIDE 36.4 mmol/L (21.0-32.0); CHLORIDE - SERUM 107 mmol/L (98-107); CREATININE - SERUM 0.7 mg/dL (0.6-1.3); GLUCOSE 166 mg/dL (74-106); MAGNESIUM - SERUM 1.9 mg/dL (1.8-2.4); PHOSPHOROUS 2.7 mg/dL (2.5-4.9); POTASSIUM - SERUM 3.5 mmol/L (3.5-5.1); SODIUM 145 mmol/L (136-145); UREA NITROGEN 10 mg/dL (7-18); eGFR NON AFRICAN AMERICAN > 90 mL/min (90-120)
[2019-11-16 08:39] VITALS: BP 120/75
[2019-11-16 10:36] LABS: PLATELET ESTIMATE DECREASED
[2019-11-16 10:37] LABS: ANISOCYTOSIS OCC
[2019-11-16 10:38] LABS: ELLIPTOCYTES OCC
[2019-11-16 12:53] VITALS: BP 137/73
--- NOTE | 2019-11-16 14:22 | NUR ---
OT NOTE: PT LIEING IN BED ON SIDE.. TANGLED UP IN BLANKETS. ASSISTED PT WITH BED MOB; SIMPLE GROOMING TASK WITH MIN/SET UP..REPOSITIONED UP IN BED AND ON SIDE. REPORTED PAIN ON BOTTOM. CONSUMED AT LEAST 75% OF MEAL JESSICA BROWER, OTR/L [phone]
--- NOTE | 2019-11-16 14:27 | NUR ---
Nutrition follow-up: NGT out and TF stopped Diet: Regular puree with honey thick liquids PO intake ~50-75% of meals Labs reviewed Wt: 257# RDN following.
--- NOTE | 2019-11-16 14:41 | NUR ---
Rehab Note- Verified benefits with Omayra in the business office and the patient has Medicare Part B only, therefore can not be accepted to [facility] Acute Inpatient Rehab. Thank you for this referral! Kia Conklin RN Clinical Liaison, [facility] Rehab
[2019-11-16 16:01] VITALS: BP 147/85
--- NOTE | 2019-11-16 16:23 | NUR ---
I have reviewed this patient and I concur with the Shift Assessment completed by the Licensed Practical Nurse today this shift.
[2019-11-16 20:00] VITALS: BP 139/67
[2019-11-17] VITALS: BP 140/68
[2019-11-17 04:00] VITALS: BP 124/65
[2019-11-17 05:13] LABS: BASOPHILS 0.2 % (0-2); EOSINOPHILS 3.5 % (0-7); HEMATOCRIT 33.2 % (42.0-54.0); HEMOGLOBIN 10.4 g/dL (13.5-17.5); IMMATURE GRANULOCYTES 0.2 % (0-5); LYMPHOCYTES 14.5 % (15-50); MCH 27.9 pg (26.0-34.0); MCHC 31.3 g/dL (31.0-37.0); MEAN PLATELET VOLUME 9.1 fL (7.4-10.4); MONOCYTES 7.6 % (2-11); PLATELET COUNT 97 10x3/uL (130-400); RBC 3.73 10x6/uL (4.20-6.10); RDW 16.1 % (11.5-14.5); WBC 5.4 10x3/uL (4.8-10.8)
[2019-11-17 05:51] LABS: CALC OSMOLALITY 286 mosm/kg (275-300); CALCIUM 8.2 mg/dL (8.5-10.1); CARBON DIOXIDE 36.2 mmol/L (21.0-32.0); CHLORIDE - SERUM 105 mmol/L (98-107); CREATININE - SERUM 0.7 mg/dL (0.6-1.3); GLUCOSE 190 mg/dL (74-106); MAGNESIUM - SERUM 1.7 mg/dL (1.8-2.4); PHOSPHOROUS 2.6 mg/dL (2.5-4.9); POTASSIUM - SERUM 3.2 mmol/L (3.5-5.1); SODIUM 142 mmol/L (136-145); UREA NITROGEN 11 mg/dL (7-18); eGFR NON AFRICAN AMERICAN > 90 mL/min (90-120)
--- NOTE | 2019-11-17 07:25 | NUR ---
ALERT AND ORIENTED. NO C/O PAIN. NO S/S OF ACUTE DISTRESS NOTED. 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 GEORGE CATHETER PRESENT. COLOSTOMY PRESENT. ON 3L O2, NC. LEFT UPPER ARM MIDLINE, NS INFUSING @ 30ML/HR. FSBS Q6 HOURS. 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 ON TELEMETRY 100 SR. DENIES ANY NEEDS AT THIS TIME. CALL LIGHT IN REACH. WILL CONTINUE TO MONITOR.
[2019-11-17 08:41] VITALS: BP 145/93
[2019-11-17] MEDS ORDERED: AMIODARONE HCL200 MG PO (11:17)
[2019-11-17] MEDS ORDERED: ROBITUSSIN DM 110 ML NG (11:17)
--- NOTE | 2019-11-17 11:47 | CN ---
PATIENT NAME:BROOKE DAVALOS MEDICAL RECORD: [id number] : 51 LOCATION:D.MS [id number] ADMIT DATE: 10/19/19 ACCOUNT: [id number] CONSULTING PHYSICIAN: ISAÍAS KOROMA MD REFERRING PHYSICIAN: MONTANA DOZIER MD DATE OF CONSULTATION: 11/16/2019 This patient was referred [facility] for possible geriatric psychiatric hospitalization. I have reviewed his chart. He is clearly suffering from a large number of serious medical problems. I do not see any evidence of acute dangerousness that is, he is not directly suicidal or homicidal. He does have the documented confusion. There is not an element of dangerousness that would allow me to hospitalize him on a behavioral unit and his ventilator dependence would also make that something that would not be manageable in this setting. It would appear prison placement would be a reasonable option for this man whose condition is grave and quite unfortunate. TRANSINT:[id number] Voice Confirmation ID: [id number] DOCUMENT ID: [id number] ISAÍAS KOROMA MD at 1147 CC: [id number] DICTATION DATE: 11/16/19 1635 HOME SERVICE CONSULTANT: 11/16/19 2220 ADM IN [facility] [id number] [place] [address]
--- NOTE | 2019-11-17 11:55 | MORECARE ---
CASE MANAGEMENT DISCHARGE SUMMARY PATIENT: ROOSEVELT AGUSTIN UNIT: [id number] ADM DATE: 10/19/19 AGE: 64 : 51 SEX: M ROOM/BED: D.2238 AUTHOR: CROW,DOC PHYSICIAN: REFERRING PHYSICIAN: MONTANA DOZIER MD DATE OF SERVICE: 11/17/19 Discharge Plan Patient Name: ROOSEVELT AGUSTIN Facility: [facility]:[place] : 1955 Planned Disposition: SNF w Planned Readmission Anticipated Discharge Date: 10/23/19 Discharge Date: Expected LOS: 4 Initial Reviewer: [email or web address] Initial Review Date: 10/19/2019 Generated: 11/17/19 12:55 pm Comments DCP- Discharge Planning Updated by [email or web address]: Unique Carrillo on 11/17/19 10:[address] CM received discharge orders. I spoke with Maggie at [facility] and he will be returning to a jail bed via ambulance. DC orders/clinical faxed to [facility].I notified pediatric care coordinator of ambulance need. I spoke with patient and he is in agreement to discharge today. He asks me to call Carlos and let him know he's going back to [facility]. I called [phone] to speak with Carlos and I did not receive an answer and it said "I'm sorry but the voice mailbox has not been set up". Discharge today to a jail bed at [facility]. DCP- Discharge Planning Updated by [email or web address]: Unique Carrillo on 11/13/19 10:[address] Spoke with Maggie at [facility]. She states they will get a BIPAP for use at facility. States patient states he does have one for home. They will accept patient when medically ready for discharge/tentative plan for Saturday. CM will continue to follow and assist with discharge planning/needs. [place] - [phone] (Maggie) DCP- Discharge Planning Updated by [email or web address]: Unique Carrillo on 11/13/19 9:[address] Updated clinical faxed to [place]. DCP- Discharge Planning Updated by [email or web address]: Joanna Del Valle on 11/10/19 6:[address] FAXED UPDATE TO [facility] DCP- Discharge Planning Updated by [email or web address]: Joanna Kentr on 11/06/19 2:[address] CM received a call from Carlos Agustin (brother) [phone] and it was noted that Peyman Agustin (brother) that is listed as contact is in [facility] and is not capable of making decision. Carlos states that he will make decisions for patient if needed. CM will continue to follow and assist as needed with discharge planning / needs. DCP- Discharge Planning Updated by [email or web address]: Joanna Kentr on 11/05/19 6:[address] CM was finally able to get in touch with patient's friend that is listed as an emergency contact Reena Pedroza [phone]. Also have a listing for Eladio Pedroza [phone]. Reena stated that the patient's brother Peyman is also in the hospital that is why we have not been able to get in touch with him. ([facility], [facility]) Reena stated that it was in the works prior to patient coming back into hospital to come and live with them. The [facility]. STARLA asked if they had POA and she stated "No they hadn't got that far yet." Reena asked if the doctor had done the procedure they had called her earlier to get consent. STARLA stated "yes" and explained again as to what the bronchoscopy was. Reena stated that [place] has been part of their family for a long time. STARLA explained that we would be getting back in touch with her at a later date. CM will continue to follow and assist as needed with discharge planning / needs. DCP- Discharge Planning Updated by [email or web address]: Joannadenia Kentr on 11/03/19 5:[address] CM attempted to contact patient's brother listed as a contact Peyman Agustin. No voicemail set up and no answer. CM contacted [facility] and they are still planning on accepting patient back unless he has to be trached then it would need to be at least 30 days old. They do not accept vent patients just trach collar. CM spoke with them regarding contacts and the only listings they had was two friends. CM will continue to follow and assist in discharge planning / needs. DCP- Discharge Planning Updated by [email or web address]: Ericka Basurto on 10/19/19 12:[address] DC PLAN: Resident at [facility] ANTICIPATED DC NEEDS: Transportation back to DC. CM met with patient who is intubated and unable to answer questions. CM noted on his chart he is from [facility]. CM called [facility], spoke to Ligia SANCHEZ, who reported the patient is a resident at their facility. He is usually Alert and Oriented x 3. He is wheelchair bound. He uses O2 2L at all times. At discharge patient will return to [facility]. CM will continue to follow and will assist as needed with dc plans/needs. Ericka Basurto RN, [facility] DCPIA - Discharge Planning Initial Assessment Updated by [email or web address]: Ericka Basurto on 10/19/19 1:23 pm * Is the patient Alert and Oriented? Yes * How many steps to enter\\exit or inside your home? None * PCP Dr. Hussein Perry * Pharmacy [facility] * [facility]read[facility] * Facility Name [facility] - Resident there. * ADLs Partial Dependent * Partial ADLs (Assistance needed) Ambulation Medication Management Transfers * Equipment Oxygen Wheelchair * List name and contact numbers for known caregivers / representatives who currently or will assist patient after discharge: Eladio Pedroza - [phone] Reena Pedroza - js [phone] * Verbal permission to speak to the caregivers and representatives has been obtained from the patient. Yes * Community resources currently utilized None * Additional services required to return to the preadmission environment? No * Can the patient safely return to the preadmission environment? Yes * Has this patient been hospitalized within the prior 30 days at any hospital? No Coverage Notice Reviewer: [email or web address] Lindsey Carrillo Notice Issued Date-Time: 11/17/2019 11:52 Notice Type: IM Discharge Notice Notice Delivered To: Patient Relationship to Patient: Self Research Nutritionist Name: Delivery Method: HAND - Hand Delivered Renea Days: Prior Verbal Notification: Recipient Understood Notice: Yes Recipient Signature: Yes Med Rec Note Co-signed by Attending: Coverage Notice Comment: IMM explained, signed, given, copy placed in MR Last DP export: 11/13/19 10:51 a Patient Name: ROOSEVELT AGUSTIN Page [id number] at 1155 All edits/amendments must be made on the electronic document DICTATION DATE: 11/17/19 1155 HOMEOPATHIC DOCTOR: HIEN 11/17/19 1155 RPT#: [id number] DC DATE: STATUS: ADM IN [facility] [address] [place] [address] END OF REPORT
[2019-11-17 13:03] VITALS: BP 141/85
--- NOTE | 2019-11-17 13:09 | NUR ---
MIDLINE CATHETER DISCONTINUED. IV TO LEFT FOREARM PLACED, 22GA X1 STICK.
--- NOTE | 2019-11-17 13:45 | NUR ---
DISCHARGED PATIENT TO [facility]ER IN AMBULANCE. CALLED REPORT IN. DISCONTINUED IV, CATHETER TIP INTACT. WENT OVER DISCHARGE INSTRUCTIONS WITH PATIENT, VERBALIZED UNDERSTANDING. UNABLE TO SIGN PAPERWORK D/T WEAKNESS. DENIES ANYTHING FURTHER.
== END 2019-11-17 13:46 | DRG 870 ==
LOC: D.ER 11:09 → D.ICU 11:36 → D.CVICU 11:36 → D.ICU 10-22 04:40 → D.MS 11-10 18:28
PROVIDERS: Family Medicine; Family Medicine Adult Medicine; Internal Medicine Nephrology; Internal Medicine Pulmonary Disease; ADMIT Family Medicine; ATTEND Family Medicine
PROC: 5A1955Z Respiratory Ventilation, Greater than 96 Consecutive Hours (ICD-10-PCS; principal; 2019-10-19)
PROC: 0BH17EZ Insertion of Endotracheal Airway into Trachea, Via Natural or Artificial Opening (ICD-10-PCS; 2019-10-19)
PROC: 05HY33Z Insertion of Infusion Device into Upper Vein, Percutaneous Approach (ICD-10-PCS; 2019-10-20)
PROC: 0B9B8ZZ Drainage of Left Lower Lobe Bronchus, Via Natural or Artificial Opening Endoscopic (ICD-10-PCS; 2019-10-24)
PROC: 0B968ZZ Drainage of Right Lower Lobe Bronchus, Via Natural or Artificial Opening Endoscopic (ICD-10-PCS; 2019-10-24)
PROC: 05H633Z Insertion of Infusion Device into Left Subclavian Vein, Percutaneous Approach (ICD-10-PCS; 2019-10-30)
PROC: 5A1955Z Respiratory Ventilation, Greater than 96 Consecutive Hours (ICD-10-PCS; 2019-10-30)
PROC: 0BH17EZ Insertion of Endotracheal Airway into Trachea, Via Natural or Artificial Opening (ICD-10-PCS; 2019-10-30)
PROC: 0B988ZZ Drainage of Left Upper Lobe Bronchus, Via Natural or Artificial Opening Endoscopic (ICD-10-PCS; 2019-11-05)
PROC: 0B9D8ZZ Drainage of Right Middle Lung Lobe, Via Natural or Artificial Opening Endoscopic (ICD-10-PCS; 2019-11-05)
PROC: 0B9B8ZZ Drainage of Left Lower Lobe Bronchus, Via Natural or Artificial Opening Endoscopic (ICD-10-PCS; 2019-11-05)
DX: A41.9 Sepsis, unspecified organism (principal); J96.01 Acute respiratory failure with hypoxia; I50.33 Acute on chronic diastolic (congestive) heart failure; J96.02 Acute respiratory failure with hypercapnia; J15.6 Pneumonia due to other Gram-negative bacteria; R53.2 Functional quadriplegia; E43 Unspecified severe protein-calorie malnutrition; J44.1 Chronic obstructive pulmonary disease with (acute) exacerbation; J98.11 Atelectasis; I48.91 Unspecified atrial fibrillation; E78.5 Hyperlipidemia, unspecified; F32.9 Major depressive disorder, single episode, unspecified; I11.0 Hypertensive heart disease with heart failure; E11.21 Type 2 diabetes mellitus with diabetic nephropathy; E11.40 Type 2 diabetes mellitus with diabetic neuropathy, unspecified; N40.0 Benign prostatic hyperplasia without lower urinary tract symptoms; D64.9 Anemia, unspecified; K80.20 Calculus of gallbladder without cholecystitis without obstruction; E11.65 Type 2 diabetes mellitus with hyperglycemia; D69.6 Thrombocytopenia, unspecified; R13.10 Dysphagia, unspecified